=== PATIENT | female | born 1985 | race Caucasian/White ===

== ENCOUNTER 2016-03-12 18:23 | Emergency (ER) | payer OTHER ==
[2016-03-12] MEDS ORDERED: SODIUM CHLORIDE 0.9% 1,000 ML IV STA (20:41)
[2016-03-12] MEDS ORDERED: ONDANSETRON 4 MG/2 ML VIAL IVP STA (20:41)
[2016-03-12] MEDS ORDERED: HYDROmorphone 1 MG/ML 1 ML SYRINGE IVP STA (20:41)
--- NOTE | 2016-03-12 20:53 | ED ---
General Adult HPI - General Chief complaint: Abdominal Pain Stated complaint: bladder infection Time Seen by Provider: 03/12/16 20:33 Source: patient, RN notes reviewed Mode of arrival: ambulatory Limitations: no limitations - History of Present Illness Initial comments: Patient is a 31-year-old male well-known to the emergency room for chronic kidney problems and retract infections presenting to the EC today stating she's had a urinary tract infection symptoms approximately 2 weeks. She reports that she completed a antibiotic of clindamycin on Saturday by her primary care provider. She reports that she is continuing to have symptoms. She states that she has lower suprapubic pain and radiates towards her left flank. She states that she's had fever and chills especially current night. She's also reported a couple episodes of vomiting. She states that she took her at home pain medication [place] however it has not helped much with the pain. - Related Data Home Medications Medication Instructions Recorded Confirmed Albuterol Inhaler [Ventolin Hfa 1 - 2 puff INHALATION RT-Q6H PRN 03/12/16 Inhaler] Gabapentin [Neurontin] 800 mg PO TID 03/12/16 03/12/16 HYDROcodone/APAP 10-325MG [[place] 1 tab PO QID PRN 03/12/16 03/12/16 10-325] Allergies Allergy/AdvReac Type Severity Reaction Status Date / Time ketorolac tromethamine Allergy Rash/Hives Verified 03/12/16 21:15 [From Toradol] levofloxacin [From Levaquin] Allergy Rash/Hives Verified 03/12/16 21:15 morphine Allergy Rash/Hives Verified 03/12/16 21:15 Penicillins Allergy Rash/Hives Verified 03/12/16 21:15 propoxyphene napsylate Allergy Rash/Hives Verified 03/12/16 21:15 [From Darvocet-N 100] tramadol Allergy Rash/Hives Verified 03/12/16 21:15 aspirin AdvReac Nausea & Verified 03/12/16 21:15 Vomiting tomato AdvReac Unknown Verified 03/12/16 21:15 Review of Systems ROS Statement: Those systems with pertinent positive or pertinent negative responses have been documented in the HPI. ROS Other: All systems not noted in ROS Statement are negative. Past Medical History Past Medical History: CVA/TIA Additional Past Medical History / Comment(s): pyelonephritis, ADD, chronic back pain, MS, History of Any Multi-Drug Resistant Organisms: ESBL, MRSA Date of last positivie culture/infection: 01/14/15-ESBL E.coli; 10/29/05-MRSA MDRO Source:: ESBL Urine; MRSA Unknown Past Surgical History: Section, Cholecystectomy, Hysterectomy, Joint Replacement Additional Past Surgical History / Comment(s): Left knee replacement, Past Anesthesia/Blood Transfusion Reactions: No Reported Reaction Past Psychological History: Anxiety Additional Psychological History / Comment(s): xanax as needed Smoking Status: Never smoker Past Alcohol Use History: None Reported Past Drug Use History: None Reported - Past Family History Father History Unknown: Yes Additional Family Medical History / Comment(s): from aneurysm 5 years after Mother History Unknown: Yes Additional Family Medical History / Comment(s): from aneurysm and cancer at age 58 General Exam - General Exam Comments Initial Comments: Patient is a pleasant 31-year-old female. She does not appear to be in any acute distress. Limitations: no limitations General appearance: alert, in no apparent distress Head exam: Present: atraumatic, normocephalic, normal inspection Eye exam: Present: normal appearance, PERRL, EOMI. Absent: scleral icterus, conjunctival injection, periorbital swelling ENT exam: Present: normal exam, mucous membranes moist Neck exam: Present: normal inspection. Absent: tenderness, meningismus, lymphadenopathy Respiratory exam: Present: normal lung sounds bilaterally. Absent: respiratory distress, wheezes, rales, rhonchi, stridor Cardiovascular Exam: Present: regular rate, normal rhythm, normal heart sounds. Absent: systolic murmur, diastolic murmur, rubs, gallop, clicks GI/Abdominal exam: Present: soft, tenderness ( reports suprapubic tenderness.), normal bowel sounds. Absent: distended, guarding, rebound, rigid Extremities exam: Present: normal inspection, full ROM, normal capillary refill. Absent: tenderness, pedal edema, joint swelling, calf tenderness Back exam: Present: normal inspection, CVA tenderness (L) (She has mild left- sided CVA tenderness.) Neurological exam: Present: alert, oriented X3, CN II-XII intact Psychiatric exam: Present: normal affect, normal mood Skin exam: Present: warm, dry, intact, normal color. Absent: rash Course Vital Signs 03/12/16 03/12/16 18:54 22:05 Temperature 97.5 F L 98.6 F Pulse Rate 94 85 Respiratory 20 18 Rate Blood Pressure 126/70 106/59 O2 Sat by Pulse 99 97 Oximetry Medical Decision Making - Medical Decision Making Patient is a 31 year old female with 2 days of UTI symptoms and bladder pain. She has recently completed PO clindamycin from PCP. Patient labs were reviewed to be normal, except UA shows possible mild infection with moderate WBC. Patient reports that her pain is much better after pain medication and hydration. She has no fever at this time. Patient will be discharged at this time and we will hold on antibiotic selection pending urine culture results. PAtietns previous urine cultures have shown no growth and UA's appeared more sever than todays. Patient is in agreeance with the treatment plan and wants to go home and follow up with PCP in 1-2 days. She has been advised to take at home pain medicaiton and return parameters discussed. - Lab Data Result diagrams: 03/12/16 21:03 03/12/16 21:03 Lab Results 03/12/16 03/12/16 03/12/16 Range/Units 21:03 21:03 21:03 WBC 7.8 (3.8-10.6) k/uL RBC 4.19 (3.80-5.40) m/uL Hgb 12.1 (11.4-16.0) gm/dL Hct 36.5 (34.0-46.0) % MCV 87.1 (80.0-100.0) fL MCH 29.0 (25.0-35.0) pg MCHC 33.3 (31.0-37.0) g/dL RDW 13.7 (11.5-15.5) % Plt Count 275 (150-450) k/uL Neutrophils % 75 % Lymphocytes % 18 % Monocytes % 4 % Eosinophils % 2 % Basophils % 0 % Neutrophils # 5.8 (1.3-7.7) k/uL Lymphocytes # 1.4 (1.0-4.8) k/uL Monocytes # 0.4 (0-1.0) k/uL Eosinophils # 0.1 (0-0.7) k/uL Basophils # 0.0 (0-0.2) k/uL Sodium 142 (137-145) mmol/L Potassium 4.7 (3.5-5.1) mmol/L Chloride 103 (98-107) mmol/L Carbon Dioxide 25 (22-30) mmol/L Anion Gap 14 mmol/L BUN 15 (7-17) mg/dL Creatinine 0.61 (0.52-1.04) mg/dL Est GFR (MDRD) Af Amer >60 (>60 ml/min/1.73 sqM) Est GFR (MDRD) Non-Af >60 (>60 ml/min/1.73 sqM) Glucose 101 H (74-99) mg/dL Calcium 9.6 (8.4-10.2) mg/dL Total Bilirubin 0.8 (0.2-1.3) mg/dL AST 34 (14-36) U/L ALT 34 (9-52) U/L Alkaline Phosphatase 103 (38-126) U/L Total Protein 8.7 H (6.3-8.2) g/dL Albumin 4.9 (3.5-5.0) g/dL Amylase 38 (30-110) U/L Lipase 54 (23-300) U/L Urine Color Yellow Urine Appearance Cloudy H (Clear) Urine pH 7.5 (5.0-8.0) Ur Specific [place] 1.018 (1.001-1.035) Urine Protein Trace H (Negative) Urine Glucose (UA) Negative (Negative) Urine Ketones Negative (Negative) Urine Blood Negative (Negative) Urine Nitrate Negative (Negative) Urine Bilirubin Negative (Negative) Urine Urobilinogen >12.0 (<2.0) mg/dL Ur Leukocyte Esterase Small H (Negative) Urine RBC 8 H (0-5) /hpf Urine WBC 28 H (0-5) /hpf Ur Squamous Epith Cells 5 H (0-4) /hpf Urine Bacteria Moderate H (None) /hpf Urine Mucus Occasional H (None) /hpf Disposition Clinical Impression: Abdominal pain Disposition: HOME SELF-CARE Condition: Good Instructions: Abdominal Pain (ED) Additional Instructions: Patient started to remain hydrated. Take at home pain medications. Follow-up with primary care provider in one to 2 days. We will start antibiotics based on a urine culture in 2-3 days. Patient is to return to the EC if any alarming signs or symptoms occur. Referrals: Aldair Bowen MD [Primary Care Provider] - 1-2 days Time of Disposition: 21:56
--- NOTE | 2016-03-12 21:12 | XR ---
EXAMINATION TYPE: XR KUB DATE OF EXAM: 03/12/2016 9:09 PM COMPARISON: NONE HISTORY: Pain TECHNIQUE: Single supine KUB image of the abdomen is obtained FINDINGS: Small bowel demonstrates no evidence for dilatation or air fluid levels. Gas and fecal material is seen in non-distended colon. No convincing evidence for pneumoperitoneum. No unusual calcifications. The lung bases are clear. The osseous structures are intact. IMPRESSION: 1. Overall nonobstructive bowel gas pattern.
[2016-03-12 21:15] LABS: ALT 34 U/L (9-52); AST 34 U/L (14-36); Alkaline Phosphatase 103 U/L (38-126); Amylase 38 U/L (30-110); Anion Gap 14 mmol/L; Basophils % (A) 0 %; Blood Urea Nitrogen 15 mg/dL (7-17); CH 30.4; CHCM 35.1; Calcium 9.6 mg/dL (8.4-10.2); Carbon Dioxide 25 mmol/L (22-30); Chloride 103 mmol/L (98-107); Eosinophils # (A) 0.1 k/uL (0-0.7); Eosinophils % (A) 2 %; Glucose 101 mg/dL (74-99); HCT 36.5 % (34.0-46.0); HDW 3.21; HGB 12.1 gm/dL (11.4-16.0); Luc # (Auto) 0.08; Luc % (Auto) 1; Lymphocytes # (A) 1.4 k/uL (1.0-4.8); Lymphocytes % (A) 18 %; MCHC 33.3 g/dL (31.0-37.0); MCV 87.1 fL (80.0-100.0); Mean Platelet Volume 7.1; Monocytes # (A) 0.4 k/uL (0-1.0); Monocytes % (A) 4 %; Neutrophils # (A) 5.8 k/uL (1.3-7.7); Neutrophils % (A) 75 %; Non-African American GFR(MDRD) >60 (>60 ml/min/1.73 sqM); RBC 4.19 m/uL (3.80-5.40); RDW 13.7 % (11.5-15.5); Sodium 142 mmol/L (137-145); Total Bilirubin 0.8 mg/dL (0.2-1.3); Total Protein 8.7 g/dL (6.3-8.2); WBC 7.8 k/uL (3.8-10.6); WBC (Perox) 8.07
[2016-03-12 21:16] LABS: Appearance,Urine Cloudy (Clear); Bacteria,Urine Moderate /hpf; Bilirubin,Urine Negative (Negative); Glucose,Urine (UA) Negative (Negative); Ketones,Urine Negative (Negative); Leukocyte Esterase,Urine Small (Negative); Mucus,Urine Occasional /hpf; Nitrite,Urine Negative (Negative); PH, Urine 7.5 (5.0-8.0); Particle Count 247216; Protein,Urine Trace (Negative); RBC,Urine 8 /hpf (0-5); Specific Gravity,Urine 1.018 (1.001-1.035); Squamous Epithelial Cell,Urine 5 /hpf (0-4); UA Billing (MACRO vs. MICRO) MICRO; Urobilinogen,Urine >12.0 mg/dL (<2.0); WBC,Urine 28 /hpf (0-5)
[2016-03-12 21:19] LABS: Potassium 4.7 mmol/L (3.5-5.1)
[2016-03-12 22:06] VITALS: BP 106/59; PULSE 85; RESP 18; TEMP 98.6
== END 2016-03-12 22:06 | disposition home or self-care (01) ==
LOC: EC 18:23
DX: R10.30 Lower abdominal pain, unspecified (principal); R11.10 Vomiting, unspecified; R50.9 Fever, unspecified; Z87.440 Personal history of urinary (tract) infections; G35 Multiple sclerosis; Z79.899 Other long term (current) drug therapy; Z88.0 Allergy status to penicillin; Z88.1 Allergy status to other antibiotic agents; Z88.5 Allergy status to narcotic agent; Z86.14 Personal history of Methicillin resistant Staphylococcus aureus infection
CPT/HCPCS: 99284; 96374; 96375; 96361; 36415; 80053; 82150; 83690; 85025; 81001; 87086; 87077; 87186; 74000; J2405; J1170

== ENCOUNTER 2016-03-31 11:58 | Emergency (ER) | payer OTHER ==
[2016-03-31 12:14] VITALS: BP 129/68; PULSE 76; RESP 16; TEMP 98.4
--- NOTE | 2016-03-31 12:40 | ED ---
General Adult HPI - General Chief complaint: Urogenital Stated complaint: uti Time Seen by Provider: 03/31/16 12:21 Source: patient, RN notes reviewed Mode of arrival: ambulatory Limitations: no limitations - History of Present Illness Initial comments: 31-year-old female presents emergency Department with chief complaint of dysuria. Patient states that his been going on for over a week. Patient was given Bactrim at her last year visit. Patient states that seems are helping but never completely went away. She saw urgent care who gave her Keflex. Patient states that she still has some dysuria denies vaginal bleeding vaginal discharge. Patient had a prior hysterectomy. Patient states that she had no fevers no chills. Patient denies any current flank pain with states that she's had a history of pyelonephritis. Denies nausea vomiting. - Related Data Home Medications Medication Instructions Recorded Confirmed Albuterol Inhaler [Ventolin Hfa 1 - 2 puff INHALATION RT-Q6H PRN 03/12/16 Inhaler] HYDROcodone/APAP 10-325MG [[place] 1 tab PO QID PRN 03/12/16 03/31/16 10-325] Cephalexin [Keflex] 500 mg PO Q12HR 03/31/16 03/31/16 Pregabalin [Lyrica] 75 mg PO BID 03/31/16 03/31/16 Previous Rx's Medication Instructions Recorded Sulfamethox-Tmp 800-160Mg [Bactrim 1 each PO Q12HR #20 tab 03/31/16 Ds] Allergies Allergy/AdvReac Type Severity Reaction Status Date / Time ketorolac tromethamine Allergy Rash/Hives Verified 03/31/16 13:03 [From Toradol] levofloxacin [From Levaquin] Allergy Rash/Hives Verified 03/31/16 13:03 morphine Allergy Rash/Hives Verified 03/31/16 13:03 Penicillins Allergy Rash/Hives Verified 03/31/16 13:03 propoxyphene napsylate Allergy Rash/Hives Verified 03/31/16 13:03 [From Darvocet-N 100] tramadol Allergy Rash/Hives Verified 03/31/16 13:03 aspirin AdvReac Nausea & Verified 03/31/16 13:03 Vomiting tomato AdvReac Unknown Verified 03/31/16 13:03 Review of Systems ROS Statement: Those systems with pertinent positive or pertinent negative responses have been documented in the HPI. ROS Other: All systems not noted in ROS Statement are negative. Past Medical History Past Medical History: CVA/TIA Additional Past Medical History / Comment(s): pyelonephritis, ADD, chronic back pain, MS, History of Any Multi-Drug Resistant Organisms: ESBL, MRSA Date of last positivie culture/infection: 01/14/15-ESBL E.coli; 10/29/05-MRSA MDRO Source:: ESBL Urine; MRSA Unknown Past Surgical History: Section, Cholecystectomy, Hysterectomy, Joint Replacement Additional Past Surgical History / Comment(s): Left knee replacement, Past Anesthesia/Blood Transfusion Reactions: No Reported Reaction Past Psychological History: Anxiety Additional Psychological History / Comment(s): xanax as needed Smoking Status: Never smoker Past Alcohol Use History: None Reported Past Drug Use History: None Reported - Past Family History Father History Unknown: Yes Additional Family Medical History / Comment(s): from aneurysm 5 years after Mother History Unknown: Yes Additional Family Medical History / Comment(s): from aneurysm and cancer at age 58 General Exam Limitations: no limitations General appearance: alert, in no apparent distress Head exam: Present: atraumatic, normocephalic, normal inspection Respiratory exam: Present: normal lung sounds bilaterally. Absent: respiratory distress, wheezes, rales, rhonchi, stridor Cardiovascular Exam: Present: regular rate, normal rhythm, normal heart sounds. Absent: systolic murmur, diastolic murmur, rubs, gallop, clicks GI/Abdominal exam: Present: soft, normal bowel sounds. Absent: distended, tenderness, guarding, rebound, rigid Back exam: Absent: CVA tenderness (R), CVA tenderness (L) Skin exam: Present: warm, dry, intact, normal color. Absent: rash Course Vital Signs 03/31/16 12:11 Temperature 98.4 F Pulse Rate 76 Respiratory 16 Rate Blood Pressure 129/68 O2 Sat by Pulse 97 Oximetry Medical Decision Making - Medical Decision Making 31-year-old female presented emergency department for UTI symptoms. Patient does have urinary tract infection. Urine culture performed. Patient be discharged on Bactrim. - Lab Data Lab Results 03/31/16 Range/Units 12:39 Urine Color Yellow Urine Appearance Cloudy H (Clear) Urine pH 6.0 (5.0-8.0) Ur Specific [place] 1.019 (1.001-1.035) Urine Protein Trace H (Negative) Urine Glucose (UA) Negative (Negative) Urine Ketones Negative (Negative) Urine Blood Negative (Negative) Urine Nitrate Positive H (Negative) Urine Bilirubin Negative (Negative) Urine Urobilinogen <2.0 (<2.0) mg/dL Ur Leukocyte Esterase Large H (Negative) Urine RBC 8 H (0-5) /hpf Urine WBC 72 H (0-5) /hpf Ur Squamous Epith Cells 7 H (0-4) /hpf Urine Bacteria Many H (None) /hpf Urine Mucus Rare H (None) /hpf Disposition Clinical Impression: UTI (urinary tract infection) Disposition: HOME SELF-CARE Condition: Stable Instructions: Urinary Tract Infection in Women (ED) Additional Instructions: Please return to the Emergency Department if symptoms worsen or any other concerns. Prescriptions: Sulfamethox-Tmp 800-160Mg [Bactrim Ds] 1 each PO Q12HR #20 tab Time of Disposition: 13:17
[2016-03-31 12:56] LABS: Appearance,Urine Cloudy (Clear); Bacteria,Urine Many /hpf; Bilirubin,Urine Negative (Negative); Glucose,Urine (UA) Negative (Negative); Ketones,Urine Negative (Negative); Leukocyte Esterase,Urine Large (Negative); Mucus,Urine Rare /hpf; Nitrite,Urine Positive (Negative); Particle Count 46910; Protein,Urine Trace (Negative); RBC,Urine 8 /hpf (0-5); Specific Gravity,Urine 1.019 (1.001-1.035); Squamous Epithelial Cell,Urine 7 /hpf (0-4); UA Billing (MACRO vs. MICRO) MICRO; Urobilinogen,Urine <2.0 mg/dL (<2.0); WBC,Urine 72 /hpf (0-5)
== END 2016-03-31 13:23 | disposition home or self-care (01) ==
LOC: EC 11:58
DX: N39.0 Urinary tract infection, site not specified (principal); F41.9 Anxiety disorder, unspecified; G89.29 Other chronic pain; M54.9 Dorsalgia, unspecified; Z79.899 Other long term (current) drug therapy; Z88.6 Allergy status to analgesic agent; Z88.1 Allergy status to other antibiotic agents; Z88.5 Allergy status to narcotic agent; Z88.0 Allergy status to penicillin; Z88.8 Allergy status to other drugs, medicaments and biological substances; Z91.018 Allergy to other foods; Z86.73 Personal history of transient ischemic attack (TIA), and cerebral infarction without residual deficits
CPT/HCPCS: 81001; 87077; 87086; 87186; 99283

== ENCOUNTER 2016-04-09 13:07 | Emergency (ER) | payer OTHER ==
[2016-04-09] MEDS ORDERED: SODIUM CHLORIDE 0.9% 1,000 ML IV STA (14:09)
--- NOTE | 2016-04-09 14:35 | ED ---
Abdominal Pain HPI - General Chief Complaint: Abdominal Pain Stated Complaint: abdominal pain/heart palpitations Time Seen by Provider: 04/09/16 13:59 Source: patient, RN notes reviewed Mode of arrival: ambulatory Limitations: no limitations - History of Present Illness Initial Comments: 31-year-old female presents emergency Department chief complaint of dysuria and noted to the urine. Patient states she is currently being treated for UTI. Patient states she's now developed nausea vomiting lightheadedness. Patient states she has been drinking as much due to the belly pain. Patient states she was concerned that maybe her UTI is not getting better. Patient states she hasn 't had. Patient states that she has any antibiotics as prescribed. Patient is denying any other symptoms at this time.Patient denies any recent fever, chills , shortness of breath, chest pain, back pain, numbness or tingling, dysuria or hematuria, constipation or diarrhea, headaches or visual changes, or any other current symptoms. - Related Data Home Medications Medication Instructions Recorded Confirmed Albuterol Inhaler [Ventolin Hfa 1 - 2 puff INHALATION RT-Q6H PRN 03/12/16 Inhaler] HYDROcodone/APAP 10-325MG [[place] 1 tab PO QID PRN 03/12/16 04/09/16 10-325] Cephalexin [Keflex] 500 mg PO Q12HR 03/31/16 04/09/16 Pregabalin [Lyrica] 75 mg PO BID 03/31/16 04/09/16 Ibuprofen [Motrin] 800 mg PO Q6HR PRN 04/09/16 04/09/16 Previous Rx's Medication Instructions Recorded Sulfamethox-Tmp 800-160Mg [Bactrim 1 each PO Q12HR #20 tab 03/31/16 Ds] Nitrofurantoin Macrocrystal 100 mg PO BID #14 cap 04/09/16 [Macrodantin] Allergies Allergy/AdvReac Type Severity Reaction Status Date / Time ketorolac tromethamine Allergy Rash/Hives Verified 04/09/16 14:14 [From Toradol] levofloxacin [From Levaquin] Allergy Rash/Hives Verified 04/09/16 14:14 morphine Allergy Rash/Hives Verified 04/09/16 14:14 Penicillins Allergy Rash/Hives Verified 04/09/16 14:14 propoxyphene napsylate Allergy Rash/Hives Verified 04/09/16 14:14 [From Darvocet-N 100] tramadol Allergy Rash/Hives Verified 04/09/16 14:14 aspirin AdvReac Nausea & Verified 04/09/16 14:14 Vomiting tomato AdvReac Unknown Verified 04/09/16 14:14 Review of Systems ROS Statement: Those systems with pertinent positive or pertinent negative responses have been documented in the HPI. ROS Other: All systems not noted in ROS Statement are negative. Past Medical History Past Medical History: CVA/TIA Additional Past Medical History / Comment(s): pyelonephritis, ADD, chronic back pain, MS, History of Any Multi-Drug Resistant Organisms: ESBL, MRSA Date of last positivie culture/infection: 01/14/15-ESBL E.coli; 10/29/05-MRSA MDRO Source:: ESBL Urine; MRSA Unknown Past Surgical History: Section, Cholecystectomy, Hysterectomy, Joint Replacement Additional Past Surgical History / Comment(s): Left knee replacement, Past Anesthesia/Blood Transfusion Reactions: No Reported Reaction Past Psychological History: Anxiety Additional Psychological History / Comment(s): xanax as needed Smoking Status: Never smoker Past Alcohol Use History: None Reported Past Drug Use History: None Reported - Past Family History Father History Unknown: Yes Additional Family Medical History / Comment(s): from aneurysm 5 years after Mother History Unknown: Yes Additional Family Medical History / Comment(s): from aneurysm and cancer at age 58 General Exam - General Exam Comments Initial Comments: General: The patient is awake and alert, in no distress, and does not appear acutely ill. Eye: Pupils are equal, round and reactive to light, extra-ocular movements are intact; there is normal conjunctiva bilaterally. No signs of icterus. Ears, nose, mouth and throat: There are moist mucous membranes. Neck: The neck is supple, there is no tenderness. Cardiovascular: There is a regular rate and rhythm. No murmur, rub or gallop is appreciated. Respiratory: Lungs are clear to auscultation, respirations are non-labored, breath sounds are equal. No wheezes, stridor, rales, or rhonchi. Gastrointestinal: Soft, non-distended, non-tender abdomen without masses or organomegaly noted. There is no rebound or guarding present. No CVA tenderness. Bowel sounds are unremarkable. Back: There is no tenderness to palpation in the midline. There is no obvious deformity. No rashes noted. Musculoskeletal: Normal ROM, no tenderness, There is no pedal edema. There is no calf tenderness or swelling. Sensation intact. Pulses equal bilaterally 2+. Neurological: CN II-XII intact, There are no obvious motor or sensory deficits. Coordination appears grossly intact. Speech is normal. Skin: Skin is warm and dry and no rashes or lesions are noted. Psychiatric: Cooperative, appropriate mood & affect, normal judgment. Limitations: no limitations Course Vital Signs 04/09/16 13:17 Temperature 98.3 F Pulse Rate 105 H Respiratory 20 Rate Blood Pressure 133/81 O2 Sat by Pulse 99 Oximetry Medical Decision Making - Medical Decision Making 31-year-old female presents emergency department with a chief complaint of abdominal pain and dysuria. This patient does appear to have a UTI. We will switch the patient to nitrofurantoin. We did discuss follow-up with her doctor to make sure there is resolution of this UTI we did give her follow-up with urology due to the continued UTI the patient does appear to be having on and off. The patient is in agreement plan the patient is QUESTIONS have been answered. She will be discharged. - Lab Data Result diagrams: 04/09/16 14:30 04/09/16 14:30 Lab Results 04/09/16 04/09/16 04/09/16 Range/Units 14:30 14:30 14:30 WBC 7.1 (3.8-10.6) k/uL RBC 4.43 (3.80-5.40) m/uL Hgb 13.0 (11.4-16.0) gm/dL Hct 38.7 (34.0-46.0) % MCV 87.2 (80.0-100.0) fL MCH 29.3 (25.0-35.0) pg MCHC 33.6 (31.0-37.0) g/dL RDW 13.6 (11.5-15.5) % Plt Count 273 (150-450) k/uL Neutrophils % 57 % Lymphocytes % 30 % Monocytes % 6 % Eosinophils % 4 % Basophils % 0 % Neutrophils # 4.1 (1.3-7.7) k/uL Lymphocytes # 2.1 (1.0-4.8) k/uL Monocytes # 0.4 (0-1.0) k/uL Eosinophils # 0.3 (0-0.7) k/uL Basophils # 0.0 (0-0.2) k/uL Sodium 144 (137-145) mmol/L Potassium 4.5 (3.5-5.1) mmol/L Chloride 103 (98-107) mmol/L Carbon Dioxide 28 (22-30) mmol/L Anion Gap 13 mmol/L BUN 16 (7-17) mg/dL Creatinine 0.60 (0.52-1.04) mg/dL Est GFR (MDRD) Af Amer >60 (>60 ml/min/1.73 sqM) Est GFR (MDRD) Non-Af >60 (>60 ml/min/1.73 sqM) Glucose 105 H (74-99) mg/dL Calcium 9.7 (8.4-10.2) mg/dL Total Bilirubin 0.7 (0.2-1.3) mg/dL AST 42 H (14-36) U/L ALT 42 (9-52) U/L Alkaline Phosphatase 94 (38-126) U/L Total Protein 8.5 H (6.3-8.2) g/dL Albumin 4.6 (3.5-5.0) g/dL Amylase 30 (30-110) U/L Lipase 35 (23-300) U/L Urine Color Yellow Urine Appearance Cloudy H (Clear) Urine pH 5.0 (5.0-8.0) Ur Specific [place] 1.020 (1.001-1.035) Urine Protein 1+ H (Negative) Urine Glucose (UA) Negative (Negative) Urine Ketones Negative (Negative) Urine Blood Small H (Negative) Urine Nitrate Positive H (Negative) Urine Bilirubin Negative (Negative) Urine Urobilinogen <2.0 (<2.0) mg/dL Ur Leukocyte Esterase Small H (Negative) Urine RBC 4 (0-5) /hpf Urine WBC 24 H (0-5) /hpf Ur Squamous Epith Cells 9 H (0-4) /hpf Urine Bacteria Many H (None) /hpf Urine Mucus Occasional H (None) /hpf Urine HCG, Qual (Not Detectd) 04/09/16 Range/Units 14:30 WBC (3.8-10.6) k/uL RBC (3.80-5.40) m/uL Hgb (11.4-16.0) gm/dL Hct (34.0-46.0) % MCV (80.0-100.0) fL MCH (25.0-35.0) pg MCHC (31.0-37.0) g/dL RDW (11.5-15.5) % Plt Count (150-450) k/uL Neutrophils % % Lymphocytes % % Monocytes % % Eosinophils % % Basophils % % Neutrophils # (1.3-7.7) k/uL Lymphocytes # (1.0-4.8) k/uL Monocytes # (0-1.0) k/uL Eosinophils # (0-0.7) k/uL Basophils # (0-0.2) k/uL Sodium (137-145) mmol/L Potassium (3.5-5.1) mmol/L Chloride (98-107) mmol/L Carbon Dioxide (22-30) mmol/L Anion Gap mmol/L BUN (7-17) mg/dL Creatinine (0.52-1.04) mg/dL Est GFR (MDRD) Af Amer (>60 ml/min/1.73 sqM) Est GFR (MDRD) Non-Af (>60 ml/min/1.73 sqM) Glucose (74-99) mg/dL Calcium (8.4-10.2) mg/dL Total Bilirubin (0.2-1.3) mg/dL AST (14-36) U/L ALT (9-52) U/L Alkaline Phosphatase (38-126) U/L Total Protein (6.3-8.2) g/dL Albumin (3.5-5.0) g/dL Amylase (30-110) U/L Lipase (23-300) U/L Urine Color Urine Appearance (Clear) Urine pH (5.0-8.0) Ur Specific [place] (1.001-1.035) Urine Protein (Negative) Urine Glucose (UA) (Negative) Urine Ketones (Negative) Urine Blood (Negative) Urine Nitrate (Negative) Urine Bilirubin (Negative) Urine Urobilinogen (<2.0) mg/dL Ur Leukocyte Esterase (Negative) Urine RBC (0-5) /hpf Urine WBC (0-5) /hpf Ur Squamous Epith Cells (0-4) /hpf Urine Bacteria (None) /hpf Urine Mucus (None) /hpf Urine HCG, Qual Not Detected (Not Detectd) - Radiology Data Radiology results: report reviewed, image reviewed Disposition Clinical Impression: UTI (urinary tract infection) Disposition: HOME SELF-CARE Condition: Stable Instructions: Urinary Tract Infection in Women (ED) Additional Instructions: Please use medication as discussed. Please follow up with family doctor if symptoms have not improved over the next two days. Please return to the emergency room if your symptoms increase or worsen or for any other concerns. Prescriptions: Nitrofurantoin Macrocrystal [Macrodantin] 100 mg PO BID #14 cap Referrals: Aldair Bowen MD [Primary Care Provider] - 1-2 days Time of Disposition: 16:27
[2016-04-09 14:38] LABS: Basophils % (A) 0 %; CH 30.3; CHCM 34.9; Eosinophils # (A) 0.3 k/uL (0-0.7); Eosinophils % (A) 4 %; HCT 38.7 % (34.0-46.0); HDW 3.32; Luc # (Auto) 0.19; Luc % (Auto) 3; Lymphocytes # (A) 2.1 k/uL (1.0-4.8); Lymphocytes % (A) 30 %; MCH 29.3 pg (25.0-35.0); MCHC 33.6 g/dL (31.0-37.0); MCV 87.2 fL (80.0-100.0); Mean Platelet Volume 7.1; Monocytes # (A) 0.4 k/uL (0-1.0); Monocytes % (A) 6 %; Neutrophils # (A) 4.1 k/uL (1.3-7.7); Neutrophils % (A) 57 %; RBC 4.43 m/uL (3.80-5.40); RDW 13.6 % (11.5-15.5); WBC 7.1 k/uL (3.8-10.6); WBC (Perox) 7.31
[2016-04-09 14:50] LABS: ALT 42 U/L (9-52); AST 42 U/L (14-36); Alkaline Phosphatase 94 U/L (38-126); Amylase 30 U/L (30-110); Anion Gap 13 mmol/L; Blood Urea Nitrogen 16 mg/dL (7-17); Calcium 9.7 mg/dL (8.4-10.2); Carbon Dioxide 28 mmol/L (22-30); Chloride 103 mmol/L (98-107); Glucose 105 mg/dL (74-99); Non-African American GFR(MDRD) >60 (>60 ml/min/1.73 sqM); Potassium 4.5 mmol/L (3.5-5.1); Sodium 144 mmol/L (137-145); Total Bilirubin 0.7 mg/dL (0.2-1.3); Total Protein 8.5 g/dL (6.3-8.2)
[2016-04-09 14:51] LABS: Appearance,Urine Cloudy (Clear); Bacteria,Urine Many /hpf; Bilirubin,Urine Negative (Negative); Glucose,Urine (UA) Negative (Negative); Ketones,Urine Negative (Negative); Leukocyte Esterase,Urine Small (Negative); Mucus,Urine Occasional /hpf; Nitrite,Urine Positive (Negative); Particle Count 42852; Protein,Urine 1+ (Negative); RBC,Urine 4 /hpf (0-5); Squamous Epithelial Cell,Urine 9 /hpf (0-4); Urobilinogen,Urine <2.0 mg/dL (<2.0); WBC,Urine 24 /hpf (0-5)
[2016-04-09] MEDS ORDERED: ACETAMINOPHEN IV (For NPO) 1,000 MG in EMPTY BAG 1 BAG IVPB STA (15:41)
--- NOTE | 2016-04-09 16:03 | XR ---
EXAMINATION TYPE: XR abdomen 2V DATE OF EXAM: 04/09/2016 3:08 PM CLINICAL HISTORY: Abdominal pain with vomiting. TECHNIQUE: Supine and upright views of the abdomen are obtained. COMPARISON: Abdominal x-ray March 12, 2016. FINDINGS: Scattered gas is seen in non-distended small bowel loops. Gas and fecal material is seen in non-distended colon. Cholecystectomy clips are identified. Additional surgical clips right pelvis are redemonstrated. No pneumoperitoneum is seen. No suspicious calcification is identified. Lung base s are clear. IMPRESSION: Overall nonobstructive bowel gas pattern. No significant change from prior.
[2016-04-09 16:31] VITALS: BP 118/54; PULSE 65; RESP 16; TEMP 98.8
[2016-04-09 17:50] LABS: UA Billing (MACRO vs. MICRO) MICRO
== END 2016-04-09 16:39 | disposition home or self-care (01) ==
LOC: EC 13:07
DX: N39.0 Urinary tract infection, site not specified (principal); G35 Multiple sclerosis; F41.9 Anxiety disorder, unspecified; Z79.899 Other long term (current) drug therapy; Z88.0 Allergy status to penicillin; Z88.6 Allergy status to analgesic agent; Z88.5 Allergy status to narcotic agent; Z86.73 Personal history of transient ischemic attack (TIA), and cerebral infarction without residual deficits
CPT/HCPCS: 36415; 80053; 82150; 83690; 85025; 81001; 81025; 87086; 74020; 99284; 96365; 96367; 96361; J0696; J0131; 87077; 87186

== ENCOUNTER 2016-04-19 11:42 | Emergency (ER) | payer OTHER ==
[2016-04-19] MEDS ORDERED: ONDANSETRON 4 MG/2 ML VIAL IVP STA (12:36)
[2016-04-19] MEDS ORDERED: SODIUM CHLORIDE 0.9% 500 ML IV STA (12:36)
[2016-04-19] MEDS ORDERED: MORPHINE SULFATE 2 MG/ML SYRINGE IVP STA (12:36)
[2016-04-19 13:11] LABS: Basophils % (A) 0 %; CH 30.2; CHCM 34.8; Eosinophils # (A) 0.2 k/uL (0-0.7); Eosinophils % (A) 3 %; HCT 37.8 % (34.0-46.0); HDW 3.31; HGB 12.7 gm/dL (11.4-16.0); Luc # (Auto) 0.24; Luc % (Auto) 3; Lymphocytes # (A) 2.2 k/uL (1.0-4.8); Lymphocytes % (A) 30 %; MCH 29.4 pg (25.0-35.0); MCHC 33.7 g/dL (31.0-37.0); MCV 87.3 fL (80.0-100.0); Mean Platelet Volume 6.7; Monocytes # (A) 0.4 k/uL (0-1.0); Monocytes % (A) 5 %; Neutrophils # (A) 4.2 k/uL (1.3-7.7); Neutrophils % (A) 58 %; RBC 4.33 m/uL (3.80-5.40); RDW 13.5 % (11.5-15.5); WBC 7.3 k/uL (3.8-10.6); WBC (Perox) 7.46
[2016-04-19 13:13] LABS: Appearance,Urine Cloudy (Clear); Bacteria,Urine Moderate /hpf; Bilirubin,Urine Negative (Negative); Glucose,Urine (UA) Negative (Negative); Ketones,Urine Negative (Negative); Leukocyte Esterase,Urine Negative (Negative); Mucus,Urine Rare /hpf; Nitrite,Urine Negative (Negative); Particle Count 5329; Protein,Urine Negative (Negative); RBC,Urine <1 /hpf (0-5); Squamous Epithelial Cell,Urine 3 /hpf (0-4); UA Billing (MACRO vs. MICRO) MICRO; WBC,Urine 2 /hpf (0-5)
[2016-04-19 13:23] LABS: Prothrombin Time 9.8 sec (9.0-12.0)
[2016-04-19 13:41] LABS: ALT 47 U/L (9-52); AST 40 U/L (14-36); Alkaline Phosphatase 90 U/L (38-126); Amylase <30 U/L (30-110); Anion Gap 12 mmol/L; Blood Urea Nitrogen 7 mg/dL (7-17); Carbon Dioxide 22 mmol/L (22-30); Chloride 106 mmol/L (98-107); Glucose 99 mg/dL (74-99); Non-African American GFR(MDRD) >60 (>60 ml/min/1.73 sqM); Sodium 140 mmol/L (137-145); Total Bilirubin 0.8 mg/dL (0.2-1.3); Total Protein 8.1 g/dL (6.3-8.2)
[2016-04-19 13:42] LABS: Partial Thromboplastin Time 95.6 sec (22.0-30.0)
--- NOTE | 2016-04-19 14:01 | CT ---
EXAMINATION TYPE: CT abdomen pelvis w con DATE OF EXAM: 04/19/2016 1:52 PM REFERENCE: Previous study dated 06/06/2015 HISTORY: abdominal pain HISTORY: Abdomen pain REFERENCE: NONE CT DLP: 2440.2 mGy Automated exposure control for dose reduction was used. TECHNIQUE: Helical acquisition through the abdomen and pelvis was obtained following the oral ingesti on of without Oral Contrast and following intravenous administration of 100 mL of Omnipaque 300. The data was reformatted in axial, coronal and sagittal projections. FINDINGS: Visualized portions of the lungs are clear. There is no pleural or pericardial fluid. The heart is not enlarged. Within the abdomen, the gallbladder is been removed. The liver and spleen are normal. Both adrenal glands are normal. There is a stable, 2.2 cm cyst in the mid polar region of the left kidney. The right kidney is normal . The pancreas is normal. There is no significant retroperitoneal, iliac or inguinal adenopathy. The bladder is unremarkable. The uterus and ovaries are not visualized. There is no significant diverticular change and there is no radiographic evidence of diverticulitis. The appendix is normal. Small bowel loops are unremarkable. There is no free fluid and no free air identified. No osseous lesion is seen. IMPRESSION: 1. SIMPLE APPEARING LEFT RENAL CYST. 2. NO FINDING TO EXPLAIN THE PATIENT'S CLINICAL SYNDROME.
[2016-04-19 14:17] LABS: Potassium 5.2 mmol/L (3.5-5.1)
--- NOTE | 2016-04-19 15:38 | ED ---
Abdominal Pain HPI - General Chief Complaint: Abdominal Pain Stated Complaint: abd pain Time Seen by Provider: 04/19/16 12:20 Source: patient Mode of arrival: ambulatory - History of Present Illness Initial Comments: Patient complains of abdominal pain. She states the pain was initially epigastric. She states the pain is moving to the right lower quadrant. She has no pelvic pain. She has no vaginal bleeding or discharge. She has no chest pain. She has no shortness of breath. She has no lightheadedness or dizziness. She has no neck pain or stiffness. She had some nausea. She is not actively vomiting. She has no blood in the stool. She has no black or tarry stool. - Related Data Home Medications Medication Instructions Recorded Confirmed Albuterol Inhaler [Ventolin Hfa 1 puff INHALATION RT-Q6H PRN 03/12/16 04/19/16 Inhaler] HYDROcodone/APAP 10-325MG [[place] 1 tab PO QID PRN 03/12/16 04/19/16 10-325] Pregabalin [Lyrica] 75 mg PO TID 03/31/16 04/19/16 Allergies Allergy/AdvReac Type Severity Reaction Status Date / Time ketorolac tromethamine Allergy Rash/Hives Verified 04/19/16 12:16 [From Toradol] levofloxacin [From Levaquin] Allergy Rash/Hives Verified 04/19/16 12:16 morphine Allergy Rash/Hives Verified 04/19/16 12:16 Penicillins Allergy Rash/Hives Verified 04/19/16 12:16 propoxyphene napsylate Allergy Rash/Hives Verified 04/19/16 12:16 [From Darvocet-N 100] tramadol Allergy Rash/Hives Verified 04/19/16 12:16 aspirin AdvReac Nausea & Verified 04/19/16 12:16 Vomiting tomato AdvReac Unknown Verified 04/19/16 12:16 Review of Systems ROS Statement: Those systems with pertinent positive or pertinent negative responses have been documented in the HPI. ROS Other: All systems not noted in ROS Statement are negative. 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, MRSA Date of last positivie culture/infection: 01/14/15-ESBL E.coli; 10/29/05-MRSA MDRO Source:: ESBL Urine; MRSA Unknown Past Surgical History: Section, Cholecystectomy, Hysterectomy, Joint Replacement Additional Past Surgical History / Comment(s): Left knee replacement, Past Anesthesia/Blood Transfusion Reactions: No Reported Reaction Past Psychological History: ADD/ADHD, Anxiety Additional Psychological History / Comment(s): xanax as needed Smoking Status: Never smoker Past Alcohol Use History: None Reported Past Drug Use History: None Reported - Past Family History Father History Unknown: Yes Additional Family Medical History / Comment(s): from aneurysm 5 years after Mother History Unknown: Yes Additional Family Medical History / Comment(s): from aneurysm and cancer at age 58 General Exam General appearance: alert, in no apparent distress Head exam: Present: atraumatic, normocephalic, normal inspection Eye exam: Present: normal appearance, PERRL, EOMI. Absent: scleral icterus, conjunctival injection, periorbital swelling ENT exam: Present: normal exam, mucous membranes moist Neck exam: Present: normal inspection. Absent: tenderness, meningismus, lymphadenopathy Respiratory exam: Present: normal lung sounds bilaterally. Absent: respiratory distress, wheezes, rales, rhonchi, stridor Cardiovascular Exam: Present: regular rate, normal rhythm, normal heart sounds. Absent: systolic murmur, diastolic murmur, rubs, gallop, clicks GI/Abdominal exam: Present: soft, tenderness, normal bowel sounds. Absent: distended, guarding, rebound, rigid Extremities exam: Present: normal inspection, full ROM, normal capillary refill. Absent: tenderness, pedal edema, joint swelling, calf tenderness Back exam: Present: normal inspection Neurological exam: Present: alert, oriented X3, CN II-XII intact Psychiatric exam: Present: normal affect, normal mood Skin exam: Present: warm, dry, intact, normal color. Absent: rash Course Vital Signs 04/19/16 04/19/16 04/19/16 12:14 12:28 14:36 Temperature 97.3 F L 96.9 F L 97.5 F L Pulse Rate 85 74 95 Respiratory 18 20 95 H Rate Blood Pressure 131/67 157/88 152/95 O2 Sat by Pulse 100 100 100 Oximetry Medical Decision Making - Medical Decision Making Patient complains of abdominal pain. She had mild tenderness. She had no pelvic complaints. CT of the abdomen and pelvis is unremarkable. Patient is feeling better on reevaluation is stable for discharge. - Lab Data Result diagrams: 04/19/16 12:45 04/19/16 12:45 Lab Results 04/19/16 04/19/16 04/19/16 Range/Units 12:45 12:45 12:45 WBC 7.3 (3.8-10.6) k/uL RBC 4.33 (3.80-5.40) m/uL Hgb 12.7 (11.4-16.0) gm/dL Hct 37.8 (34.0-46.0) % MCV 87.3 (80.0-100.0) fL MCH 29.4 (25.0-35.0) pg MCHC 33.7 (31.0-37.0) g/dL RDW 13.5 (11.5-15.5) % Plt Count 287 (150-450) k/uL Neutrophils % 58 % Lymphocytes % 30 % Monocytes % 5 % Eosinophils % 3 % Basophils % 0 % Neutrophils # 4.2 (1.3-7.7) k/uL Lymphocytes # 2.2 (1.0-4.8) k/uL Monocytes # 0.4 (0-1.0) k/uL Eosinophils # 0.2 (0-0.7) k/uL Basophils # 0.0 (0-0.2) k/uL PT (9.0-12.0) sec INR (<1.1) APTT (22.0-30.0) sec Sodium 140 (137-145) mmol/L Potassium 5.2 H (3.5-5.1) mmol/L Chloride 106 (98-107) mmol/L Carbon Dioxide 22 (22-30) mmol/L Anion Gap 12 mmol/L BUN 7 (7-17) mg/dL Creatinine 0.56 (0.52-1.04) mg/dL Est GFR (MDRD) Af Amer >60 (>60 ml/min/1.73 sqM) Est GFR (MDRD) Non-Af >60 (>60 ml/min/1.73 sqM) Glucose 99 (74-99) mg/dL Calcium 9.0 (8.4-10.2) mg/dL Total Bilirubin 0.8 (0.2-1.3) mg/dL AST 40 H (14-36) U/L ALT 47 (9-52) U/L Alkaline Phosphatase 90 (38-126) U/L Total Protein 8.1 (6.3-8.2) g/dL Albumin 4.5 (3.5-5.0) g/dL Amylase <30 L (30-110) U/L Lipase 27 (23-300) U/L Urine Color Urine Appearance (Clear) Urine pH (5.0-8.0) Ur Specific [place] (1.001-1.035) Urine Protein (Negative) Urine Glucose (UA) (Negative) Urine Ketones (Negative) Urine Blood (Negative) Urine Nitrate (Negative) Urine Bilirubin (Negative) Urine Urobilinogen (<2.0) mg/dL Ur Leukocyte Esterase (Negative) Urine RBC (0-5) /hpf Urine WBC (0-5) /hpf Ur Squamous Epith Cells (0-4) /hpf Urine Bacteria (None) /hpf Urine Mucus (None) /hpf Urine HCG, Qual Not Detected (Not Detectd) Blood Type Blood Type Recheck Antibody Screen Spec Expiration Date 04/19/16 04/19/16 04/19/16 Range/Units 12:45 12:45 13:51 WBC (3.8-10.6) k/uL RBC (3.80-5.40) m/uL Hgb (11.4-16.0) gm/dL Hct (34.0-46.0) % MCV (80.0-100.0) fL MCH (25.0-35.0) pg MCHC (31.0-37.0) g/dL RDW (11.5-15.5) % Plt Count (150-450) k/uL Neutrophils % % Lymphocytes % % Monocytes % % Eosinophils % % Basophils % % Neutrophils # (1.3-7.7) k/uL Lymphocytes # (1.0-4.8) k/uL Monocytes # (0-1.0) k/uL Eosinophils # (0-0.7) k/uL Basophils # (0-0.2) k/uL PT 9.8 (9.0-12.0) sec INR 1.0 (<1.1) APTT 95.6 H (22.0-30.0) sec Sodium (137-145) mmol/L Potassium (3.5-5.1) mmol/L Chloride (98-107) mmol/L Carbon Dioxide (22-30) mmol/L Anion Gap mmol/L BUN (7-17) mg/dL Creatinine (0.52-1.04) mg/dL Est GFR (MDRD) Af Amer (>60 ml/min/1.73 sqM) Est GFR (MDRD) Non-Af (>60 ml/min/1.73 sqM) Glucose (74-99) mg/dL Calcium (8.4-10.2) mg/dL Total Bilirubin (0.2-1.3) mg/dL AST (14-36) U/L ALT (9-52) U/L Alkaline Phosphatase (38-126) U/L Total Protein (6.3-8.2) g/dL Albumin (3.5-5.0) g/dL Amylase (30-110) U/L Lipase (23-300) U/L Urine Color Light Yellow Urine Appearance Cloudy H (Clear) Urine pH 6.0 (5.0-8.0) Ur Specific [place] 1.010 (1.001-1.035) Urine Protein Negative (Negative) Urine Glucose (UA) Negative (Negative) Urine Ketones Negative (Negative) Urine Blood Negative (Negative) Urine Nitrate Negative (Negative) Urine Bilirubin Negative (Negative) Urine Urobilinogen 2.0 (<2.0) mg/dL Ur Leukocyte Esterase Negative (Negative) Urine RBC <1 (0-5) /hpf Urine WBC 2 (0-5) /hpf Ur Squamous Epith Cells 3 (0-4) /hpf Urine Bacteria Moderate H (None) /hpf Urine Mucus Rare H (None) /hpf Urine HCG, Qual (Not Detectd) Blood Type O Positive Blood Type Recheck No Antibody Screen NEGATIVE Spec Expiration Date 04/22/2016 - 235004/19/16 Range/Units 14:00 WBC (3.8-10.6) k/uL RBC (3.80-5.40) m/uL Hgb (11.4-16.0) gm/dL Hct (34.0-46.0) % MCV (80.0-100.0) fL MCH (25.0-35.0) pg MCHC (31.0-37.0) g/dL RDW (11.5-15.5) % Plt Count (150-450) k/uL Neutrophils % % Lymphocytes % % Monocytes % % Eosinophils % % Basophils % % Neutrophils # (1.3-7.7) k/uL Lymphocytes # (1.0-4.8) k/uL Monocytes # (0-1.0) k/uL Eosinophils # (0-0.7) k/uL Basophils # (0-0.2) k/uL PT (9.0-12.0) sec INR (<1.1) APTT >200.0 H* (22.0-30.0) sec Sodium (137-145) mmol/L Potassium (3.5-5.1) mmol/L Chloride (98-107) mmol/L Carbon Dioxide (22-30) mmol/L Anion Gap mmol/L BUN (7-17) mg/dL Creatinine (0.52-1.04) mg/dL Est GFR (MDRD) Af Amer (>60 ml/min/1.73 sqM) Est GFR (MDRD) Non-Af (>60 ml/min/1.73 sqM) Glucose (74-99) mg/dL Calcium (8.4-10.2) mg/dL Total Bilirubin (0.2-1.3) mg/dL AST (14-36) U/L ALT (9-52) U/L Alkaline Phosphatase (38-126) U/L Total Protein (6.3-8.2) g/dL Albumin (3.5-5.0) g/dL Amylase (30-110) U/L Lipase (23-300) U/L Urine Color Urine Appearance (Clear) Urine pH (5.0-8.0) Ur Specific [place] (1.001-1.035) Urine Protein (Negative) Urine Glucose (UA) (Negative) Urine Ketones (Negative) Urine Blood (Negative) Urine Nitrate (Negative) Urine Bilirubin (Negative) Urine Urobilinogen (<2.0) mg/dL Ur Leukocyte Esterase (Negative) Urine RBC (0-5) /hpf Urine WBC (0-5) /hpf Ur Squamous Epith Cells (0-4) /hpf Urine Bacteria (None) /hpf Urine Mucus (None) /hpf Urine HCG, Qual (Not Detectd) Blood Type Blood Type Recheck Antibody Screen Spec Expiration Date Disposition Clinical Impression: Abdominal pain Disposition: HOME SELF-CARE Condition: Good Instructions: Abdominal Pain (ED)
[2016-04-19 16:01] VITALS: BP 137/67; PULSE 88; RESP 20; TEMP 97.1
== END 2016-04-19 16:01 | disposition home or self-care (01) ==
LOC: EC 11:42
DX: N28.1 Cyst of kidney, acquired (principal); R10.31 Right lower quadrant pain; Z88.5 Allergy status to narcotic agent; Z88.0 Allergy status to penicillin; Z88.6 Allergy status to analgesic agent; Z88.8 Allergy status to other drugs, medicaments and biological substances; Z91.018 Allergy to other foods; Z86.14 Personal history of Methicillin resistant Staphylococcus aureus infection; Z87.440 Personal history of urinary (tract) infections
CPT/HCPCS: 99284; 96361; 96375; 96374; 36415; 86900; 86901; 80053; 82150; 83690; 85025; 85610; 85730; 86850; 81001; 81025; 74177; J2405; J2270; Q9967

== ENCOUNTER 2016-04-20 19:04 | Emergency (ER) | payer OTHER ==
[2016-04-20] MEDS ORDERED: ONDANSETRON ODT 4 MG TAB PO STA (19:46)
[2016-04-20] MEDS ORDERED: HYDROmorphone 2 MG/ML 1 ML SYRINGE IM STA ×2 (19:46→22:18)
--- NOTE | 2016-04-20 19:51 | ED ---
General Adult HPI - General Chief complaint: Abdominal Pain Stated complaint: abdominal pain/vomiting Time Seen by Provider: 04/20/16 19:21 Source: patient, RN notes reviewed, old records reviewed Mode of arrival: ambulatory Limitations: no limitations - History of Present Illness Initial comments: This is a 31-year-old female ER for evaluation of abdominal pain, patient coming in with severe right upper quadrant bowel pain. Patient has multiple history of abdominal surgeries [place] history etc. Patient has no recent fevers , this is her third ER visit in the past 4 days for similar symptoms. Patient has no diarrhea, no nausea of a pain is worse when she eats. Again no fevers or travel history no sick contacts, patient is taking medication at home with no help - Related Data Home Medications Medication Instructions Recorded Confirmed Albuterol Inhaler [Ventolin Hfa 1 puff INHALATION RT-Q6H PRN 03/12/16 04/20/16 Inhaler] HYDROcodone/APAP 10-325MG [[place] 1 tab PO QID 03/12/16 04/20/16 10-325] Pregabalin [Lyrica] 75 mg PO BID 03/31/16 04/20/16 Allergies Allergy/AdvReac Type Severity Reaction Status Date / Time ketorolac tromethamine Allergy Rash/Hives Verified 04/20/16 19:12 [From Toradol] levofloxacin [From Levaquin] Allergy Rash/Hives Verified 04/20/16 19:12 morphine Allergy Rash/Hives Verified 04/20/16 19:12 Penicillins Allergy Rash/Hives Verified 04/20/16 19:12 propoxyphene napsylate Allergy Rash/Hives Verified 04/20/16 19:12 [From Darvocet-N 100] tramadol Allergy Rash/Hives Verified 04/20/16 19:12 aspirin AdvReac Nausea & Verified 04/20/16 19:12 Vomiting tomato AdvReac Unknown Verified 04/20/16 19:12 Review of Systems ROS Statement: Those systems with pertinent positive or pertinent negative responses have been documented in the HPI. ROS Other: All systems not noted in ROS Statement are negative. 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, MRSA Date of last positivie culture/infection: 01/14/15-ESBL E.coli; 10/29/05-MRSA MDRO Source:: ESBL Urine; MRSA Unknown Past Surgical History: Section, Cholecystectomy, Hysterectomy, Joint Replacement Additional Past Surgical History / Comment(s): Left knee replacement, Past Anesthesia/Blood Transfusion Reactions: No Reported Reaction Past Psychological History: ADD/ADHD, Anxiety Additional Psychological History / Comment(s): xanax as needed Smoking Status: Never smoker Past Alcohol Use History: None Reported Past Drug Use History: None Reported - Past Family History Father History Unknown: Yes Additional Family Medical History / Comment(s): from aneurysm 5 years after Mother History Unknown: Yes Additional Family Medical History / Comment(s): from aneurysm and cancer at age 58 General Exam Limitations: no limitations General appearance: alert, in no apparent distress, obese Head exam: Present: atraumatic, normocephalic, normal inspection Eye exam: Present: normal appearance, PERRL, EOMI. Absent: scleral icterus, conjunctival injection, periorbital swelling ENT exam: Present: normal exam, mucous membranes moist Neck exam: Present: normal inspection. Absent: tenderness, meningismus, lymphadenopathy Respiratory exam: Present: normal lung sounds bilaterally. Absent: respiratory distress, wheezes, rales, rhonchi, stridor Cardiovascular Exam: Present: regular rate, normal rhythm, normal heart sounds. Absent: systolic murmur, diastolic murmur, rubs, gallop, clicks GI/Abdominal exam: Present: soft, tenderness (Right upper quadrant), normal bowel sounds. Absent: distended, guarding, rebound, rigid Extremities exam: Present: normal inspection, full ROM, normal capillary refill. Absent: tenderness, pedal edema, joint swelling, calf tenderness Back exam: Present: normal inspection Neurological exam: Present: alert, oriented X3, CN II-XII intact Psychiatric exam: Present: normal affect, normal mood Skin exam: Present: warm, dry, intact, normal color. Absent: rash Course Vital Signs 04/20/16 19:11 Temperature 97.9 F Pulse Rate 70 Respiratory 18 Rate Blood Pressure 190/97 O2 Sat by Pulse 100 Oximetry - Reevaluation(s) Reevaluation #1: 04/20/16 21:52 Patient's 2 prior ER visits this week or evaluated, she had lab work 2 which is negative, urine which was negative and CAT scan negative Medical Decision Making - Medical Decision Making 31 female the ER with acute on chronic abdominal pain. At this time no interventionally made, patient to follow-up with family physician. Ultrasound negative to direct - Radiology Data Radiology results: report reviewed (Ultrasounds negative for acute disease), image reviewed Disposition Clinical Impression: Abdominal pain Disposition: HOME SELF-CARE Condition: Good Instructions: Abdominal Pain (ED) Referrals: Aldair Bowen MD [Primary Care Provider] - 1-2 days
--- NOTE | 2016-04-20 21:40 | US ---
EXAMINATION TYPE: US gallbladder DATE OF EXAM: 04/20/2016 9:30 PM COMPARISON: CT in pacs CLINICAL HISTORY: Hina,RUQpain. RUQ pain and N/V/D x 1 week, history of cholecystectomy, obese patie nt EXAM MEASUREMENTS: Liver Length: 15.8 cm Gallbladder Wall: Surgically absent CBD: 0.4 cm Right Kidney: 10.6 x 5.1 x 5.4 cm TECHNOLOGIST IMPRESSION: Technically difficult and limited study due to patient's body habitus Pancreas: visualized portions wnl, limited by overlying midline bowel gas Liver: visualized portions wnl, limited by rib shadowing and overlying bowel gas Gallbladder: Surgically absent Evidence for sonographic Manuel's sign: yes CBD: visualized portions wnl, limited by overlying bowel gas Right Kidney: visualized portions wnl, limited by overlying bowel gas IMPRESSION: Cholecystectomy. No dilated ducts. No focal liver defect.
[2016-04-20 22:17] VITALS: BP 131/84; PULSE 79; RESP 16; TEMP 98.3
== END 2016-04-20 22:25 | disposition home or self-care (01) ==
LOC: EC 19:04
DX: R10.11 Right upper quadrant pain (principal); G35 Multiple sclerosis; Z79.899 Other long term (current) drug therapy; Z86.14 Personal history of Methicillin resistant Staphylococcus aureus infection; Z86.73 Personal history of transient ischemic attack (TIA), and cerebral infarction without residual deficits; Z79.891 Long term (current) use of opiate analgesic; Z91.02 Food additives allergy status; Z88.0 Allergy status to penicillin; Z88.5 Allergy status to narcotic agent; Z88.6 Allergy status to analgesic agent; Z88.1 Allergy status to other antibiotic agents
CPT/HCPCS: 76705; 99284; 96372; J1170

== ENCOUNTER 2016-05-24 10:40 | Day surgery (SDC) | payer OTHER ==
[2016-05-07 15:19] VITALS: BMI 32.9
[~2016-05-24 10:40] MED LIST: LIDOCAINE 1% 20 ML VIAL (10MG/ML) FOR IV START INTRADERMA PRN
[2016-05-24 11:25] VITALS: RESP 16; TEMP 97.1
[2016-05-24] MEDS: LACTATED RINGERS 1,000 ML IV SCH ×2 (11:42→11:46)
[2016-05-24] MEDS ORDERED: LIDOCAINE 1% INJ 10MG/ML (20 ML MDV) ONE (11:49)
[2016-05-24] MEDS ORDERED: PROPOFOL 10 MG/ML 20 ML VIAL IV ONE (11:49)
--- NOTE | 2016-05-24 11:54 | P.GSHP ---
History of Present Illness H&P Date: 05/24/16 Chief Complaint: Epigastric pain and nausea and vomiting 31 years old female presents with epigastric pain and right upper quadrant pain for last 2 months. She has nausea and bilious vomiting. Prior cholecystectomy several years ago. Chronic diarrhea. Excisional: Motrin 800 mg 2-3 times a day for chronic knee pain - Review of Systems Comment: All negative except stated in history of present illness Past Medical History Past Medical History: CVA/TIA Additional Past Medical History / Comment(s): pyelonephritis, ADD, chronic back pain, MS, factor 12 deficiency, abdominal pain, vomiting History of Any Multi-Drug Resistant Organisms: ESBL, MRSA Date of last positivie culture/infection: 01/14/15-ESBL E.coli; 10/29/05-MRSA MDRO Source:: ESBL Urine; MRSA Unknown Past Surgical History: Section, Cholecystectomy, Hysterectomy, Joint Replacement Additional Past Surgical History / Comment(s): Left knee replacement, Past Anesthesia/Blood Transfusion Reactions: No Reported Reaction Past Psychological History: ADD/ADHD, Anxiety Additional Psychological History / Comment(s): xanax as needed Smoking Status: Never smoker Past Alcohol Use History: None Reported Past Drug Use History: None Reported - Past Family History Father History Unknown: Yes Additional Family Medical History / Comment(s): from aneurysm 5 years after Mother History Unknown: Yes Additional Family Medical History / Comment(s): from aneurysm and cancer at age 58 Medications and Allergies Home Medications Medication Instructions Recorded Confirmed Type Albuterol Inhaler [Ventolin Hfa 1 puff INHALATION RT-Q6H PRN 03/12/16 05/24/16 History Inhaler] HYDROcodone/APAP 10-325MG [[place] 1 tab PO QID 03/12/16 05/24/16 History 10-325] Pregabalin [Lyrica] 75 mg PO BID 03/31/16 05/24/16 History ALPRAZolam [Xanax] 1 mg PO DAILY PRN 05/23/16 05/24/16 History Allergies Allergy/AdvReac Type Severity Reaction Status Date / Time ketorolac tromethamine Allergy Rash/Hives Verified 05/24/16 11:19 [From Toradol] levofloxacin [From Levaquin] Allergy Rash/Hives Verified 05/24/16 11:19 morphine Allergy Rash/Hives Verified 05/24/16 11:19 Penicillins Allergy Rash/Hives Verified 05/24/16 11:19 propoxyphene napsylate Allergy Rash/Hives Verified 05/24/16 11:19 [From [place]-N 100] tramadol Allergy Rash/Hives Verified 05/24/16 11:19 aspirin AdvReac Nausea & Verified 05/24/16 11:19 Vomiting tomato AdvReac Unknown Verified 05/24/16 11:19 Surgical - Exam Vital Signs Temp Pulse Resp BP Pulse Ox 97.1 F L 80 16 148/81 99 05/24/16 11:23 05/24/16 11:23 05/24/16 11:23 05/24/16 11:23 05/24/16 11:23 General: Patient is alert and oriented to time, place and person and cooperative with exam. He is not in acute distress. HEENT: No pallor, no icterus, no thyroid enlargement, no cervical lymphadenopathy.Edentulous Chest: Bilateral equal breath sounds present. No wheezes, no crackles. Cardiovascular: Regular rate and rhythm. Abdomen: Soft, nontender, nondistended. N Integumentary: Bilateral lower extremity chronic venous dermatitis. No active ulcers or discharge. Neurologic: Cranial nerves II-XII intact. Strength upper and lower extremities 5/5. No focal neurologic deficits. Gait is normal. Psychiatric: No anxiety or psychosis. No suicidal thoughts. Assessment and Plan (1) Epigastric pain Status: Acute Plan: 1. Informed consent obtained and patient elected to undergo EGD with possible biopsy. The risks, benefits and potential complications explained patient elected to undergo the procedure
[2016-05-24 12:42] VITALS: BP 130/82; PULSE 69
[2016-05-24] MEDS ORDERED: MEPERIDINE 50 MG/ML SYRINGE IVP ONE (12:53)
--- NOTE | 2016-07-09 18:38 | P.OP ---
Date of Procedure: 05/24/16 Preoperative Diagnosis: RUQ pain Nause and vomiting Postoperative Diagnosis: Same Procedure(s) Performed: EGD with bx Anesthesia: ADILENE Surgeon: Radha Curry Pathology: none sent Condition: stable Disposition: PACU Indications for Procedure: 31 yrs old female with RUQ pain , nausea and vomiting. Informed consent obtained for EGD with bx Operative Findings: Esophagitis - mid esophagitis Superficial gastric erosions Description of Procedure: A timeout was performed to verify the correct patient and correct procedure. Patient was on continuous vitals and pulse ox monitoring throughout the procedure. She was placed in lateral decubitus position and an oral bite block was inserted. A well-lubricated Olympus upper endoscope was passed orally. The esophagus was intubated without difficulty. The vocal cords were visualised and protected at all times. The endoscope was passed beyond the pylorus into the first and second portion of the duodenum. No abnormality is noted in the duodenum mucosa. There were superficial erosions along the prepyloric area Two random biopsies were taken from the gastric antrum using cold biopsy forceps. The scope was then retroflexed. No hiatal hernia. The GE junction is measured at 36 cm from the incisors . No evidence of reflux esophagitis. The endoscope was gradually withdrawn. Patchy esophagitis in mid esophagus and bx taken using cold bx forceps . Patient tolerated the procedure well and was taken to post anesthesia care unit in stable condition. SPECIMEN: Antral biopsy Esophagus bx Final Pathologic Diagnosis A. GASTRIC ANTRUM, BIOPSY: MILD CHRONIC GASTRITIS. IMMUNOPEROXIDASE STAIN NEGATIVE FOR HELICOBACTER PYLORI ORGANISMS (CONTROLS APPROPRIATE). B. MID ESOPHAGUS, BIOPSY: ACUTE ESOPHAGITIS. SPECIAL STAINS FOR FUNGAL ORGANISMS NEGATIVE
== END 2016-05-24 13:30 | disposition home or self-care (01) ==
LOC: ORWHC2ENDO 10:40
PROVIDERS: ATTEND Surgery
DX: K20.9 Esophagitis, unspecified (principal); K29.50 Unspecified chronic gastritis without bleeding; J45.909 Unspecified asthma, uncomplicated; F41.9 Anxiety disorder, unspecified; G62.9 Polyneuropathy, unspecified; D68.2 Hereditary deficiency of other clotting factors; Z86.73 Personal history of transient ischemic attack (TIA), and cerebral infarction without residual deficits; Z79.899 Other long term (current) drug therapy; Z79.891 Long term (current) use of opiate analgesic; Z79.1 Long term (current) use of non-steroidal anti-inflammatories (NSAID); Z88.5 Allergy status to narcotic agent; Z88.0 Allergy status to penicillin; Z88.8 Allergy status to other drugs, medicaments and biological substances; Z91.018 Allergy to other foods
CPT/HCPCS: 88305; 88312; 88342; 43239; J2175; J2001; J2704

== ENCOUNTER → 2016-08-10 | Outpatient (CLI) | payer OTHER ==
--- NOTE | 2016-08-10 16:18 | CT ---
EXAMINATION TYPE: CT brain wo con DATE OF EXAM: 08/10/2016 COMPARISON: CT brain December 17, 2014. HISTORY: Patient complains of headaches for a long time with nausea and vomiting. CT DLP: 935.80 mGycm. Automated Exposure Control for Dose Reduction was Utilized. TECHNIQUE: CT scan of the head is performed without contrast. FINDINGS: There is no acute intracranial hemorrhage, mass effect, or midline shift identified. The ventricles and sulci are within normal limits in size. The globes are intact and the visualized sin uses are clear. The calvarium is intact. IMPRESSION: No acute intracranial hemorrhage or midline shift is seen. No significant change from pr ior.
== END | disposition home or self-care (01) ==
LOC: RADCTMAIN 15:53
PROVIDERS: ATTEND Family Medicine
DX: R51 Headache (principal)
CPT/HCPCS: 70450

== ENCOUNTER 2016-08-12 16:52 | Emergency (ER) | payer OTHER ==
[2016-08-12 17:00] VITALS: BP 125/70; PULSE 103; RESP 16; TEMP 98.7
[2016-08-12] MEDS ORDERED: ACETAMINOPHEN TAB 500 MG TAB PO STA (17:57)
[2016-08-12] MEDS ORDERED: ONDANSETRON 4 MG/2 ML VIAL IVP STA (17:57)
[2016-08-12] MEDS ORDERED: SODIUM CHLORIDE 0.9% 500 ML IV STA (17:57)
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
[2016-08-12 18:34] LABS: Basophils % (A) 1 %; CH 30.4; CHCM 34.2; Eosinophils # (A) 0.3 k/uL (0-0.7); Eosinophils % (A) 3 %; HCT 35.6 % (34.0-46.0); Luc # (Auto) 0.15; Luc % (Auto) 2; Lymphocytes % (A) 22 %; MCH 30.1 pg (25.0-35.0); MCHC 33.7 g/dL (31.0-37.0); MCV 89.2 fL (80.0-100.0); Mean Platelet Volume 6.8; Monocytes # (A) 0.4 k/uL (0-1.0); Monocytes % (A) 4 %; Neutrophils # (A) 6.1 k/uL (1.3-7.7); Neutrophils % (A) 69 %; RBC 3.99 m/uL (3.80-5.40); RDW 13.6 % (11.5-15.5); WBC 8.9 k/uL (3.8-10.6); WBC (Perox) 9.35
[2016-08-12 18:40] LABS: Appearance,Urine Cloudy (Clear); Bacteria,Urine Rare /hpf; Bilirubin,Urine Negative (Negative); Glucose,Urine (UA) Negative (Negative); Ketones,Urine Negative (Negative); Leukocyte Esterase,Urine Negative (Negative); Mucus,Urine Many /hpf; Nitrite,Urine Negative (Negative); PH, Urine 5.5 (5.0-8.0); Particle Count 20710; Protein,Urine Trace (Negative); Squamous Epithelial Cell,Urine 4 /hpf (0-4); UA Billing (MACRO vs. MICRO) MICRO; WBC,Urine 6 /hpf (0-5)
[2016-08-12 19:02] LABS: ALT 26 U/L (9-52); AST 46 U/L (14-36); Alkaline Phosphatase 84 U/L (38-126); Anion Gap 11 mmol/L; Blood Urea Nitrogen 13 mg/dL (7-17); Calcium 9.4 mg/dL (8.4-10.2); Carbon Dioxide 24 mmol/L (22-30); Chloride 106 mmol/L (98-107); Glucose 96 mg/dL (74-99); Non-African American GFR(MDRD) >60 (>60 ml/min/1.73 sqM); Sodium 141 mmol/L (137-145); Total Bilirubin 0.9 mg/dL (0.2-1.3); Total Protein 7.5 g/dL (6.3-8.2)
== END 2016-08-12 19:24 | disposition home or self-care (01) ==
LOC: EC 16:52
DX: G44.209 Tension-type headache, unspecified, not intractable (principal); G43.109 Migraine with aura, not intractable, without status migrainosus; R11.2 Nausea with vomiting, unspecified; F41.9 Anxiety disorder, unspecified; G35 Multiple sclerosis; G89.29 Other chronic pain; Z79.891 Long term (current) use of opiate analgesic; Z79.899 Other long term (current) drug therapy; Z88.6 Allergy status to analgesic agent; Z88.5 Allergy status to narcotic agent; Z88.0 Allergy status to penicillin; Z91.018 Allergy to other foods
CPT/HCPCS: 36415; 80053; 85025; 81001; 80306; 87086; 99284; 96374; 96361; J2405

== ENCOUNTER 2016-12-02 15:38 | Emergency (ER) | payer MEDICARE, OTHER ==
[2016-12-02] MEDS ORDERED: ONDANSETRON 4 MG/2 ML VIAL IVP STA (16:14)
[2016-12-02] MEDS ORDERED: HYDROmorphone 0.5 MG/0.5 ML SYRINGE IVP STA (16:14)
[2016-12-02] MEDS ORDERED: SODIUM CHLORIDE 0.9% 1,000 ML IV STA (16:14)
[2016-12-02 16:51] LABS: Basophils % (A) 0 %; CH 31.2; CHCM 34.6; Eosinophils # (A) 0.3 k/uL (0-0.7); Eosinophils % (A) 4 %; HCT 39.2 % (34.0-46.0); HDW 3.13; HGB 12.9 gm/dL (11.4-16.0); Luc % (Auto) 1; Lymphocytes # (A) 1.7 k/uL (1.0-4.8); Lymphocytes % (A) 22 %; MCV 90.8 fL (80.0-100.0); Mean Platelet Volume 7.4; Monocytes # (A) 0.4 k/uL (0-1.0); Monocytes % (A) 5 %; Neutrophils # (A) 5.3 k/uL (1.3-7.7); Neutrophils % (A) 69 %; RBC 4.31 m/uL (3.80-5.40); RDW 14.3 % (11.5-15.5); WBC 7.8 k/uL (3.8-10.6); WBC (Perox) 8.09
[2016-12-02 17:04] LABS: ALT 44 U/L (9-52); AST 34 U/L (14-36); Alkaline Phosphatase 87 U/L (38-126); Amylase <30 U/L (30-110); Anion Gap 11 mmol/L; Blood Urea Nitrogen 10 mg/dL (7-17); Calcium 9.1 mg/dL (8.4-10.2); Carbon Dioxide 25 mmol/L (22-30); Chloride 103 mmol/L (98-107); Glucose 92 mg/dL (74-99); Non-African American GFR(MDRD) >60 (>60 ml/min/1.73 sqM); Potassium 4.1 mmol/L (3.5-5.1); Sodium 139 mmol/L (137-145); Total Bilirubin 0.5 mg/dL (0.2-1.3); Total Protein 7.8 g/dL (6.3-8.2)
[2016-12-02 17:07] LABS: Appearance,Urine Cloudy (Clear); Bacteria,Urine Occasional /hpf; Bilirubin,Urine Negative (Negative); Glucose,Urine (UA) Negative (Negative); Ketones,Urine Negative (Negative); Leukocyte Esterase,Urine Negative (Negative); Mucus,Urine Few /hpf; Nitrite,Urine Negative (Negative); Particle Count 11299; Protein,Urine Trace (Negative); RBC,Urine 3 /hpf (0-5); Specific Gravity,Urine 1.023 (1.001-1.035); Squamous Epithelial Cell,Urine 17 /hpf (0-4); UA Billing (MACRO vs. MICRO) MICRO; WBC,Urine 2 /hpf (0-5)
--- NOTE | 2016-12-02 17:10 | XR ---
EXAMINATION TYPE: XR abdomen 2V DATE OF EXAM: 12/02/2016 4:57 PM CLINICAL HISTORY: Left flank pain TECHNIQUE: Upright and supine images of the abdomen are obtained. COMPARISON: None. FINDINGS: Scattered gas is seen in non-distended small bowel loops. Gas and fecal material is seen in non-distended colon. There is no visceromegaly, pneumoperitoneum, or abnormal calcification apprecia lauren. Cholecystectomy clips and right hemipelvic surgical clips are noted. The lung bases are clear an d the osseous structures are intact. IMPRESSION: Nonobstructive bowel gas pattern. No radiopaque calculi.
[2016-12-02] MEDS ORDERED: PHENAZOPYRIDINE 200 MG TAB PO STA (17:28)
[2016-12-02] MEDS ORDERED: SULFAMETH-TMP DS STARTER PACK 2 TAB BTL PO STA (17:28)
--- NOTE | 2016-12-02 17:31 | ED ---
General Adult HPI - General Chief complaint: Abdominal Pain Stated complaint: Syncope Time Seen by Provider: 12/02/16 15:55 Source: patient, RN notes reviewed, old records reviewed Mode of arrival: wheelchair Limitations: no limitations - History of Present Illness Initial comments: Chief complaint history of present illness this is a 31-year-old female with a complaint of discomfort to her bladder and kidney area. Nausea vomiting but no diarrhea. Complains of frequency urgency and dysuria. Ongoing for 2 days. No other complaints. - Related Data Home Medications Medication Instructions Recorded Confirmed Albuterol Inhaler [Ventolin Hfa 1 puff INHALATION RT-Q6H PRN 03/12/16 12/02/16 Inhaler] HYDROcodone/APAP 10-325MG [[place] 1 tab PO QID 03/12/16 12/02/16 10-325] Gabapentin [Neurontin] 800 mg PO TID 08/12/16 12/02/16 Previous Rx's Medication Instructions Recorded Phenazopyridine [Pyridium] 200 mg PO TID #6 tablet 12/02/16 Sulfamethox-Tmp 800-160Mg [Bactrim 1 each PO Q12HR #20 tab 12/02/16 DS 800-160 mg] Allergies Allergy/AdvReac Type Severity Reaction Status Date / Time ketorolac tromethamine Allergy Rash/Hives Verified 12/02/16 16:31 [From Toradol] levofloxacin [From Levaquin] Allergy Rash/Hives Verified 12/02/16 16:31 morphine Allergy Rash/Hives Verified 12/02/16 16:31 Penicillins Allergy Rash/Hives Verified 12/02/16 16:31 propoxyphene napsylate Allergy Rash/Hives Verified 12/02/16 16:31 [From Darvocet-N 100] tramadol Allergy Rash/Hives Verified 12/02/16 16:31 aspirin AdvReac Nausea & Verified 12/02/16 16:31 Vomiting tomato AdvReac Unknown Verified 12/02/16 16:31 Review of Systems ROS Statement: Those systems with pertinent positive or pertinent negative responses have been documented in the HPI. Review of systems no headache chest pain shortness of breath or GI problems. She has had frequency urgency dysuria. Denies vaginal discharge. Denies any vaginal discharge. Past medical problems significant for TIA, pyelonephritis ADHD. Surgeries , cholecystectomy, hysterectomy, left knee joint replacement. Family history mother had ovarian cancer. Nonsmoker nondrinker. ROS Other: All systems not noted in ROS Statement are negative. Past Medical History Past Medical History: CVA/TIA Additional Past Medical History / Comment(s): pyelonephritis, ADD, chronic back pain, MS, factor 12 deficiency, abdominal pain, vomiting History of Any Multi-Drug Resistant Organisms: ESBL, MRSA Date of last positivie culture/infection: 01/14/15-ESBL E.coli; 10/29/05-MRSA MDRO Source:: ESBL Urine; MRSA Unknown Past Surgical History: Section, Cholecystectomy, Hysterectomy, Joint Replacement Additional Past Surgical History / Comment(s): Left knee replacement, Past Anesthesia/Blood Transfusion Reactions: No Reported Reaction Past Psychological History: ADD/ADHD, Anxiety Smoking Status: Never smoker Past Alcohol Use History: None Reported Past Drug Use History: None Reported - Past Family History Father History Unknown: Yes Additional Family Medical History / Comment(s): from aneurysm 5 years after Mother History Unknown: Yes Additional Family Medical History / Comment(s): from aneurysm and cancer at age 58 General Exam - General Exam Comments Initial Comments: General: The patient is awake and alert, complaining of 2 days of urinary tract and's infection type symptoms of frequency urgency and dysuria. States she has a fever now currently is 97.9 pulse 98 respiratory rate 18 pulse ox on percent room air blood pressure 138/68 Eye: Pupils are equal, round and reactive to light, extra-ocular movements are intact ; there is normal conjunctiva bilaterally. No signs of icterus. Ears, nose, mouth and throat: There are moist mucous membranes and no oral lesions. Neck: The neck is supple, there is no tenderness, no lymphadenopathy. Cardiovascular: There is a regular rate and rhythm. No murmur, rub or gallop is appreciated. Respiratory: Lungs are clear to auscultation, respirations are non-labored, breath sounds are equal. No wheezes, stridor, rales, or rhonchi. Gastrointestinal: Patient complains discomfort in the left flank no chills no fever. She has complaint of frequency urgency dysuria. Nonetheless blood or dark urine. Back: Mild left flank discomfort. The patient does have chronic pain though. Musculoskeletal: Normal ROM, no tenderness, There is no pedal edema. There is no calf tenderness or swelling. Sensation intact. Pulses equal bilaterally 2+. Neurological: No neuro deficits Skin: Skin is warm and dry and no rashes or lesions are noted. Limitations: no limitations Course Vital Signs 12/02/16 15:40 Temperature 97.9 F Pulse Rate 92 Respiratory 18 Rate Blood Pressure 138/68 O2 Sat by Pulse 100 Oximetry Medical Decision Making - Medical Decision Making Medical decision-making the patient's labs show white count 7.8 hemoglobin 12.9 hematocrit 39. Potassium 4.1 BUN 10 creatinine 0.59 and GFR greater than 60. Glucose 92 amylase lipase normal. Urine 3 reds 2 whites. X-ray of the abdomen was done and reviewed by radiologist entire report was reviewed final impression is nonobstructive bowel gas pattern. No radiopaque calculi. As read by Dr. Sumner - Lab Data Result diagrams: 12/02/16 16:45 12/02/16 16:45 Lab Results 12/02/16 12/02/16 12/02/16 Range/Units 16:45 16:45 16:45 WBC 7.8 (3.8-10.6) k/uL RBC 4.31 (3.80-5.40) m/uL Hgb 12.9 (11.4-16.0) gm/dL Hct 39.2 (34.0-46.0) % MCV 90.8 (80.0-100.0) fL MCH 30.0 (25.0-35.0) pg MCHC 33.0 (31.0-37.0) g/dL RDW 14.3 (11.5-15.5) % Plt Count 259 (150-450) k/uL Neutrophils % 69 % Lymphocytes % 22 % Monocytes % 5 % Eosinophils % 4 % Basophils % 0 % Neutrophils # 5.3 (1.3-7.7) k/uL Lymphocytes # 1.7 (1.0-4.8) k/uL Monocytes # 0.4 (0-1.0) k/uL Eosinophils # 0.3 (0-0.7) k/uL Basophils # 0.0 (0-0.2) k/uL Sodium 139 (137-145) mmol/L Potassium 4.1 (3.5-5.1) mmol/L Chloride 103 (98-107) mmol/L Carbon Dioxide 25 (22-30) mmol/L Anion Gap 11 mmol/L BUN 10 (7-17) mg/dL Creatinine 0.59 (0.52-1.04) mg/dL Est GFR (MDRD) Af Amer >60 (>60 ml/min/1.73 sqM) Est GFR (MDRD) Non-Af >60 (>60 ml/min/1.73 sqM) Glucose 92 (74-99) mg/dL Calcium 9.1 (8.4-10.2) mg/dL Total Bilirubin 0.5 (0.2-1.3) mg/dL AST 34 (14-36) U/L ALT 44 (9-52) U/L Alkaline Phosphatase 87 (38-126) U/L Total Protein 7.8 (6.3-8.2) g/dL Albumin 4.3 (3.5-5.0) g/dL Amylase <30 L (30-110) U/L Lipase 35 (23-300) U/L Urine Color Yellow Urine Appearance Cloudy H (Clear) Urine pH 7.0 (5.0-8.0) Ur Specific [place] 1.023 (1.001-1.035) Urine Protein Trace H (Negative) Urine Glucose (UA) Negative (Negative) Urine Ketones Negative (Negative) Urine Blood Negative (Negative) Urine Nitrite Negative (Negative) Urine Bilirubin Negative (Negative) Urine Urobilinogen 3.0 (<2.0) mg/dL Ur Leukocyte Esterase Negative (Negative) Urine RBC 3 (0-5) /hpf Urine WBC 2 (0-5) /hpf Ur Squamous Epith Cells 17 H (0-4) /hpf Urine Bacteria Occasional H (None) /hpf Urine Mucus Few H (None) /hpf Disposition Clinical Impression: Urinary tract infection Disposition: HOME SELF-CARE Condition: Fair Instructions: Urinary Tract Infection in Women (ED) Additional Instructions: Increase fluids and take medications as directed Prescriptions: Phenazopyridine [Pyridium] 200 mg PO TID #6 tablet Sulfamethox-Tmp 800-160Mg [Bactrim DS 800-160 mg] 1 each PO Q12HR #20 tab Referrals: Aldair Bowen MD [Primary Care Provider] - 1-2 days Time of Disposition: 17:31
[2016-12-02 17:55] VITALS: BP 150/78; PULSE 89; RESP 16; TEMP 98.2
== END 2016-12-02 17:57 | disposition home or self-care (01) ==
LOC: EC 15:38
DX: N39.0 Urinary tract infection, site not specified (principal); R11.2 Nausea with vomiting, unspecified; Z86.73 Personal history of transient ischemic attack (TIA), and cerebral infarction without residual deficits; Z90.49 Acquired absence of other specified parts of digestive tract; Z86.14 Personal history of Methicillin resistant Staphylococcus aureus infection; Z88.6 Allergy status to analgesic agent; Z88.1 Allergy status to other antibiotic agents; Z88.5 Allergy status to narcotic agent; Z88.0 Allergy status to penicillin; Z91.018 Allergy to other foods; Z79.891 Long term (current) use of opiate analgesic; Z79.899 Other long term (current) drug therapy
CPT/HCPCS: 96361 ×2; 96374 ×2; 96375 ×2; 99284 ×2; 36415; 80053; 82150; 83690; 85025; 81001; 87086; 74020; J2405; J1170

== ENCOUNTER 2016-12-05 13:22 | Emergency (ER) | payer MEDICARE, OTHER ==
--- NOTE | 2016-12-05 14:21 | ED ---
General Adult HPI - General Chief complaint: Recheck/Abnormal Lab/Rx Stated complaint: Abd Pain Time Seen by Provider: 12/05/16 13:33 Source: patient, RN notes reviewed Mode of arrival: wheelchair Limitations: no limitations - History of Present Illness Initial comments: 31-year-old female presents emergency from she complaint bilateral flank pain. Patient states she was diagnosed with a urinary tract infection. Days ago. Patient states that she feels the symptoms are getting worse. She dates that she does not feel nauseated and she believes that she had a fever yesterday. Patient denies any diarrhea, constipation, vaginal bleeding or vaginal discharge. Patient had a prior hysterectomy. Patient denies any headache or dizziness. She states is bilateral flank pain feels that she may have had a kidney infection. - Related Data Home Medications Medication Instructions Recorded Confirmed Albuterol Inhaler [Ventolin Hfa 1 puff INHALATION RT-Q6H PRN 03/12/16 12/05/16 Inhaler] HYDROcodone/APAP 10-325MG [[place] 1 tab PO QID 03/12/16 12/05/16 10-325] Gabapentin [Neurontin] 800 mg PO TID 08/12/16 12/05/16 Sulfamethox-Tmp 800-160Mg [Bactrim 1 tab PO Q12HR 12/05/16 12/05/16 DS 800-160 mg] Previous Rx's Medication Instructions Recorded Orphenadrine [Norflex] 100 mg PO Q12H #14 tablet.er 12/05/16 Allergies Allergy/AdvReac Type Severity Reaction Status Date / Time ketorolac tromethamine Allergy Rash/Hives Verified 12/05/16 13:37 [From Toradol] levofloxacin [From Levaquin] Allergy Rash/Hives Verified 12/05/16 13:37 morphine Allergy Rash/Hives Verified 12/05/16 13:37 Penicillins Allergy Rash/Hives Verified 12/05/16 13:37 propoxyphene napsylate Allergy Rash/Hives Verified 12/05/16 13:37 [From Darvocet-N 100] tramadol Allergy Rash/Hives Verified 12/05/16 13:37 aspirin AdvReac Nausea & Verified 12/05/16 13:37 Vomiting tomato AdvReac Unknown Verified 12/05/16 13:37 Review of Systems ROS Statement: Those systems with pertinent positive or pertinent negative responses have been documented in the HPI. ROS Other: All systems not noted in ROS Statement are negative. Past Medical History Past Medical History: CVA/TIA Additional Past Medical History / Comment(s): pyelonephritis, ADD, chronic back pain, MS, factor 12 deficiency, abdominal pain, vomiting History of Any Multi-Drug Resistant Organisms: ESBL, MRSA Date of last positivie culture/infection: 01/14/15-ESBL E.coli; 10/29/05-MRSA MDRO Source:: ESBL Urine; MRSA Unknown Past Surgical History: Section, Cholecystectomy, Hysterectomy, Joint Replacement Additional Past Surgical History / Comment(s): Left knee replacement, Past Anesthesia/Blood Transfusion Reactions: No Reported Reaction Past Psychological History: ADD/ADHD, Anxiety Smoking Status: Never smoker Past Alcohol Use History: None Reported Past Drug Use History: None Reported - Past Family History Father History Unknown: Yes Additional Family Medical History / Comment(s): from aneurysm 5 years after Mother History Unknown: Yes Additional Family Medical History / Comment(s): from aneurysm and cancer at age 58 General Exam Limitations: no limitations General appearance: alert, in no apparent distress Head exam: Present: atraumatic, normocephalic, normal inspection Respiratory exam: Present: normal lung sounds bilaterally. Absent: respiratory distress, wheezes, rales, rhonchi, stridor Cardiovascular Exam: Present: regular rate, normal rhythm, normal heart sounds. Absent: systolic murmur, diastolic murmur, rubs, gallop, clicks GI/Abdominal exam: Present: soft, tenderness (Mild suprapubic), normal bowel sounds. Absent: distended, guarding, rebound, rigid Back exam: Absent: CVA tenderness (R), CVA tenderness (L) Skin exam: Present: warm, dry, intact, normal color. Absent: rash Course Vital Signs 12/05/16 13:27 Temperature 97.8 F Pulse Rate 80 Respiratory 20 Rate Blood Pressure 128/72 O2 Sat by Pulse 99 Oximetry Medical Decision Making - Medical Decision Making 31-year-old female presented emergency department to complaint of left flank pain. There is no evidence UTI or pyelonephritis. Patient was likely having back pain which is somewhat chronic for her. Patient will be discharged at this time return parameters were discussed. - Lab Data Result diagrams: 12/05/16 14:15 12/05/16 14:15 Lab Results 12/05/16 12/05/16 12/05/16 Range/Units 14:15 14:15 14:16 WBC 9.2 (3.8-10.6) k/uL RBC 4.47 (3.80-5.40) m/uL Hgb 13.3 (11.4-16.0) gm/dL Hct 39.5 (34.0-46.0) % MCV 88.5 (80.0-100.0) fL MCH 29.8 (25.0-35.0) pg MCHC 33.7 (31.0-37.0) g/dL RDW 14.1 (11.5-15.5) % Plt Count 286 (150-450) k/uL Neutrophils % 81 % Lymphocytes % 13 % Monocytes % 3 % Eosinophils % 3 % Basophils % 0 % Neutrophils # 7.4 (1.3-7.7) k/uL Lymphocytes # 1.2 (1.0-4.8) k/uL Monocytes # 0.3 (0-1.0) k/uL Eosinophils # 0.2 (0-0.7) k/uL Basophils # 0.0 (0-0.2) k/uL Sodium 140 (137-145) mmol/L Potassium 4.2 (3.5-5.1) mmol/L Chloride 104 (98-107) mmol/L Carbon Dioxide 25 (22-30) mmol/L Anion Gap 11 mmol/L BUN 9 (7-17) mg/dL Creatinine 0.62 (0.52-1.04) mg/dL Est GFR (MDRD) Af Amer >60 (>60 ml/min/1.73 sqM) Est GFR (MDRD) Non-Af >60 (>60 ml/min/1.73 sqM) Glucose 107 H (74-99) mg/dL Calcium 9.7 (8.4-10.2) mg/dL Total Bilirubin 0.6 (0.2-1.3) mg/dL AST 27 (14-36) U/L ALT 37 (9-52) U/L Alkaline Phosphatase 87 (38-126) U/L Total Protein 8.6 H (6.3-8.2) g/dL Albumin 4.7 (3.5-5.0) g/dL Amylase 31 (30-110) U/L Lipase 33 (23-300) U/L Urine Color Light Yellow Urine Appearance Cloudy H (Clear) Urine pH 8.5 H (5.0-8.0) Ur Specific [place] 1.007 (1.001-1.035) Urine Protein Negative (Negative) Urine Glucose (UA) Negative (Negative) Urine Ketones Negative (Negative) Urine Blood Negative (Negative) Urine Nitrite Negative (Negative) Urine Bilirubin Negative (Negative) Urine Urobilinogen <2.0 (<2.0) mg/dL Ur Leukocyte Esterase Negative (Negative) Urine RBC <1 (0-5) /hpf Urine WBC 1 (0-5) /hpf Ur Squamous Epith Cells 6 H (0-4) /hpf Urine Bacteria Few H (None) /hpf Urine Mucus Rare H (None) /hpf Disposition Clinical Impression: Back pain Disposition: HOME SELF-CARE Condition: Stable Instructions: Back Pain (ED) Additional Instructions: Please return to the Emergency Department if symptoms worsen or any other concerns. Prescriptions: Orphenadrine [Norflex] 100 mg PO Q12H #14 tablet.er Referrals: Aldair Bowen MD [Primary Care Provider] - 1-2 days Time of Disposition: 15:16
[2016-12-05 14:34] LABS: Basophils % (A) 0 %; CH 30.9; CHCM 35.1; Eosinophils # (A) 0.2 k/uL (0-0.7); Eosinophils % (A) 3 %; HCT 39.5 % (34.0-46.0); HDW 3.15; HGB 13.3 gm/dL (11.4-16.0); Luc # (Auto) 0.08; Luc % (Auto) 1; Lymphocytes # (A) 1.2 k/uL (1.0-4.8); Lymphocytes % (A) 13 %; MCH 29.8 pg (25.0-35.0); MCHC 33.7 g/dL (31.0-37.0); MCV 88.5 fL (80.0-100.0); Mean Platelet Volume 7.3; Monocytes # (A) 0.3 k/uL (0-1.0); Monocytes % (A) 3 %; Neutrophils # (A) 7.4 k/uL (1.3-7.7); Neutrophils % (A) 81 %; RBC 4.47 m/uL (3.80-5.40); RDW 14.1 % (11.5-15.5); WBC 9.2 k/uL (3.8-10.6); WBC (Perox) 9.12
[2016-12-05 14:44] LABS: Appearance,Urine Cloudy (Clear); Bacteria,Urine Few /hpf; Bilirubin,Urine Negative (Negative); Glucose,Urine (UA) Negative (Negative); Ketones,Urine Negative (Negative); Leukocyte Esterase,Urine Negative (Negative); Mucus,Urine Rare /hpf; Nitrite,Urine Negative (Negative); PH, Urine 8.5 (5.0-8.0); Particle Count 4990; Protein,Urine Negative (Negative); RBC,Urine <1 /hpf (0-5); Specific Gravity,Urine 1.007 (1.001-1.035); Squamous Epithelial Cell,Urine 6 /hpf (0-4); UA Billing (MACRO vs. MICRO) MICRO; Urobilinogen,Urine <2.0 mg/dL (<2.0); WBC,Urine 1 /hpf (0-5)
[2016-12-05 14:52] LABS: ALT 37 U/L (9-52); AST 27 U/L (14-36); Alkaline Phosphatase 87 U/L (38-126); Amylase 31 U/L (30-110); Anion Gap 11 mmol/L; Blood Urea Nitrogen 9 mg/dL (7-17); Calcium 9.7 mg/dL (8.4-10.2); Carbon Dioxide 25 mmol/L (22-30); Chloride 104 mmol/L (98-107); Glucose 107 mg/dL (74-99); Non-African American GFR(MDRD) >60 (>60 ml/min/1.73 sqM); Potassium 4.2 mmol/L (3.5-5.1); Sodium 140 mmol/L (137-145); Total Bilirubin 0.6 mg/dL (0.2-1.3); Total Protein 8.6 g/dL (6.3-8.2)
[2016-12-05] MEDS ORDERED: ORPHENADRINE 30 MG/ML 2 ML VIAL IVP STA (15:12)
[2016-12-05 15:31] VITALS: BP 156/84; PULSE 67; RESP 18; TEMP 97.9
== END 2016-12-05 15:31 | disposition home or self-care (01) ==
LOC: EC 13:22
DX: M54.9 Dorsalgia, unspecified (principal); Z86.14 Personal history of Methicillin resistant Staphylococcus aureus infection; Z88.6 Allergy status to analgesic agent; Z88.1 Allergy status to other antibiotic agents; Z88.5 Allergy status to narcotic agent; Z88.0 Allergy status to penicillin; Z91.018 Allergy to other foods; Z79.891 Long term (current) use of opiate analgesic; Z79.899 Other long term (current) drug therapy
CPT/HCPCS: 99283 ×2; 96374 ×2; 36415; 80053; 82150; 83690; 85025; 81001; J2360

== ENCOUNTER 2017-01-14 11:56 | Emergency (ER) | payer MEDICARE, OTHER ==
[2017-01-14 12:04] VITALS: RESP 18; TEMP 98.9
[2017-01-14] MEDS ORDERED: ASPIRIN 325 MG TAB PO STA (12:43)
[2017-01-14 12:55] LABS: Basophils % (A) 0 %; CH 29.6; CHCM 33.2; Eosinophils # (A) 0.2 k/uL (0-0.7); Eosinophils % (A) 3 %; HCT 28.8 % (34.0-46.0); HDW 3.04; Luc # (Auto) 0.06; Luc % (Auto) 1; Lymphocytes # (A) 1.2 k/uL (1.0-4.8); Lymphocytes % (A) 19 %; MCH 28.9 pg (25.0-35.0); MCHC 32.2 g/dL (31.0-37.0); MCV 89.7 fL (80.0-100.0); Mean Platelet Volume 7.3; Monocytes # (A) 0.3 k/uL (0-1.0); Monocytes % (A) 4 %; Neutrophils # (A) 4.6 k/uL (1.3-7.7); Neutrophils % (A) 72 %; RBC 3.22 m/uL (3.80-5.40); RDW 14.7 % (11.5-15.5); WBC 6.3 k/uL (3.8-10.6); WBC (Perox) 6.31
[2017-01-14 13:07] LABS: Anion Gap 11 mmol/L; Blood Urea Nitrogen 9 mg/dL (7-17); Calcium 9.3 mg/dL (8.4-10.2); Carbon Dioxide 26 mmol/L (22-30); Chloride 105 mmol/L (98-107); Glucose 90 mg/dL (74-99); HGB 9.3 gm/dL (11.4-16.0); Non-African American GFR(MDRD) >60 (>60 ml/min/1.73 sqM); Potassium 4.2 mmol/L (3.5-5.1); Sodium 142 mmol/L (137-145)
--- NOTE | 2017-01-14 13:10 | XR ---
EXAMINATION TYPE: XR chest 2V DATE OF EXAM: 01/14/2017 COMPARISON: NONE TECHNIQUE: PA and lateral views submitted. HISTORY: Chest pain FINDINGS: The lungs are clear and there is no pneumothorax, pleural effusion, or focal pneumonia. IMPRESSION: 1. No acute process.
[2017-01-14] MEDS ORDERED: HYDROmorphone 1 MG/ML 1 ML SYRINGE IVP STA (13:31)
[2017-01-14 13:34] LABS: Partial Thromboplastin Time >200.0 sec (22.0-30.0)
[2017-01-14 15:57] LABS: Basophils % (A) 0 %; Eosinophils # (A) 0.3 k/uL (0-0.7); Eosinophils % (A) 3 %; HCT 34.3 % (34.0-46.0); HDW 3.24; HGB 11.5 gm/dL (11.4-16.0); Luc % (Auto) 1; Lymphocytes % (A) 23 %; MCH 29.7 pg (25.0-35.0); MCHC 33.4 g/dL (31.0-37.0); MCV 88.8 fL (80.0-100.0); Monocytes # (A) 0.3 k/uL (0-1.0); Monocytes % (A) 3 %; Neutrophils # (A) 6.1 k/uL (1.3-7.7); Neutrophils % (A) 69 %; RBC 3.87 m/uL (3.80-5.40); RDW 13.6 % (11.5-15.5); WBC 8.8 k/uL (3.8-10.6); WBC (Perox) 8.56
[2017-01-14 17:09] VITALS: BP 112/66; PULSE 74
--- NOTE | 2017-01-14 17:14 | ED ---
Chest Pain HPI - General Chief Complaint: Chest Pain Stated Complaint: Chest Pain-DrAashish Sent Time Seen by Provider: 01/14/17 12:08 Source: patient Mode of arrival: ambulatory Limitations: no limitations - History of Present Illness Initial Comments: 31-year-old female past medical history of factor XII deficiency, CVA/ TIA, pyelonephritis, ADD, chronic back pain, MS, abdominal pain, section, cholecystectomy, hysterectomy, and joint replacements presented for evaluation of left-sided chest pain that radiates to her left shoulder/arm pit and back. She stated this been going on for 2 days and for she thought it was her GERD and she took a Zantac without relief. She states her symptoms are better when laying down and she saw her [facility] physician Dr. Bowen and given the intensity of pain was sent to the ED for further treatment and evaluation. The pain is reproducible with arm movements or with palpation. There is no associated shortness of breath, or pleuritic nature to the pain. - Related Data Home Medications Medication Instructions Recorded Confirmed Albuterol Inhaler [Ventolin Hfa 1 puff INHALATION RT-QID PRN 03/12/16 01/14/17 Inhaler] HYDROcodone/APAP 10-325MG [[place] 1 tab PO QID 03/12/16 01/14/17 10-325] Gabapentin [Neurontin] 800 mg PO TID 08/12/16 01/14/17 Previous Rx's Medication Instructions Recorded Ibuprofen [Motrin] 800 mg PO Q6HR #30 tab 01/14/17 Allergies Allergy/AdvReac Type Severity Reaction Status Date / Time ketorolac tromethamine Allergy Rash/Hives Verified 01/14/17 13:09 [From Toradol] levofloxacin [From Levaquin] Allergy Rash/Hives Verified 01/14/17 13:09 morphine Allergy Rash/Hives Verified 01/14/17 13:09 Penicillins Allergy Rash/Hives Verified 01/14/17 13:09 propoxyphene napsylate Allergy Rash/Hives Verified 01/14/17 13:09 [From Darvocet-N 100] tramadol Allergy Rash/Hives Verified 01/14/17 13:09 aspirin AdvReac Nausea & Verified 01/14/17 13:09 Vomiting tomato AdvReac Unknown Verified 01/14/17 13:09 Review of Systems ROS Statement: Those systems with pertinent positive or pertinent negative responses have been documented in the HPI. ROS Other: All systems not noted in ROS Statement are negative. Constitutional: Denies: fever, chills Eyes: Denies: eye pain, vision change ENT: Denies: ear pain, throat pain Respiratory: Denies: cough, dyspnea Cardiovascular: Reports: chest pain. Denies: palpitations, dyspnea on exertion , orthopnea, edema, syncope, paroxysmal nocturnal dyspnea Endocrine: Denies: fatigue, polydipsia, polyuria Gastrointestinal: Denies: abdominal pain, nausea, vomiting Genitourinary: Denies: urgency, dysuria Musculoskeletal: Reports: back pain (Left upper back pain/shoulder pain) Skin: Denies: rash, lesions Neurological: Denies: headache, weakness Psychiatric: Denies: anxiety, depression Hematological/Lymphatic: Denies: easy bleeding, easy bruising EKG Findings - EKG Comments: EKG Findings:: Normal sinus rhythm with a ventricular rate of 62, VENESSA 124, QRS 88, QT/QTc 410/416. Past Medical History Past Medical History: CVA/TIA Additional Past Medical History / Comment(s): pyelonephritis, ADD, chronic back pain, MS, factor 12 deficiency, abdominal pain, vomiting History of Any Multi-Drug Resistant Organisms: ESBL, MRSA Date of last positivie culture/infection: 01/14/15-ESBL E.coli; 10/29/05-MRSA MDRO Source:: ESBL Urine; MRSA Unknown Past Surgical History: Section, Cholecystectomy, Hysterectomy, Joint Replacement Additional Past Surgical History / Comment(s): Left knee replacement, Past Anesthesia/Blood Transfusion Reactions: No Reported Reaction Past Psychological History: ADD/ADHD, Anxiety Smoking Status: Never smoker Past Alcohol Use History: None Reported Past Drug Use History: None Reported - Past Family History Father History Unknown: Yes Additional Family Medical History / Comment(s): from aneurysm 5 years after Mother History Unknown: Yes Additional Family Medical History / Comment(s): from aneurysm and cancer at age 58 General Exam Limitations: no limitations General appearance: alert, in no apparent distress Head exam: Present: atraumatic, normocephalic, normal inspection Eye exam: Present: normal appearance, PERRL, EOMI. Absent: scleral icterus, conjunctival injection, periorbital swelling ENT exam: Present: normal exam, mucous membranes moist Neck exam: Present: normal inspection. Absent: tenderness, meningismus, lymphadenopathy Respiratory exam: Present: normal lung sounds bilaterally. Absent: respiratory distress, wheezes, rales, rhonchi, stridor Cardiovascular Exam: Present: regular rate, normal rhythm, normal heart sounds. Absent: systolic murmur, diastolic murmur, rubs, gallop, clicks GI/Abdominal exam: Present: soft, normal bowel sounds. Absent: distended, tenderness, guarding, rebound, rigid Rectal exam: Present: deferred Extremities exam: Present: normal inspection, full ROM, normal capillary refill , other (chest tenderness to palpation of the left upper chest radiation around to her back). Absent: tenderness, pedal edema, joint swelling, calf tenderness Back exam: Present: normal inspection Neurological exam: Present: alert, oriented X3, CN II-XII intact Psychiatric exam: Present: normal affect, normal mood Skin exam: Present: warm, dry, intact, normal color, other (no overlying skin changes the noted areas of reproducible chest pain). Absent: rash Course Vital Signs 01/14/17 01/14/17 01/14/17 12:01 12:30 12:31 Temperature 98.9 F Pulse Rate 82 81 Pulse Rate [ 80 Apical] Respiratory 18 18 Rate Blood Pressure 150/70 124/60 O2 Sat by Pulse 95 97 Oximetry 01/14/17 01/14/17 13:34 17:08 Temperature Pulse Rate 69 74 Pulse Rate [ Apical] Respiratory 18 18 Rate Blood Pressure 111/60 112/66 O2 Sat by Pulse 96 98 Oximetry Chest Pain MDM - MDM 31-year-old female presented for evaluation of left-sided chest pain that is reproducible in nature for the last 2 days. She states that she is not tried any medications for these symptoms and hasn't had these symptoms previously. There is no other associated symptoms of shortness of breath, fevers, chills, cough, nausea or vomiting. On physical examination she does have tenderness over the left upper chest and into the armpit. There is no overlying skin changes. Although the exam is consistent with noncardiac chest pain, there remains concern for occult etiologies given her factor 12 deficiency. We'll obtain chest x-ray, EKG, labs, and provide aspirin and pain control. Labs revealed a 4 g drop in her hemoglobin from previous values. Her PTT was greater than 200 however given her factor XII deficiency this is not considered an acute abnormality. Her initial troponin is negative. The patient was reevaluated and had improvement in her pain. She was informed of these results and that she would be held in the ED a little bit longer for repeat troponin 3 hours as well as repeat CBC d-dimer was negative as well. Chest x-ray showed no acute process. These labs revealed a negative troponin once again and her hemoglobin had returned to within her normal baseline limits. The patient was informed of these results and given her HEART score of 1 and a risk of MACE at 0.9-1.7% it was determined that she would be discharged with instruction to follow-up with her primary care physician but to return to this facility for symptoms should worsen or persist. The patient acknowledged an understanding of this information and agreed with this plan of care. Disposition Clinical Impression: Non-cardiac chest pain Disposition: HOME SELF-CARE Condition: Stable Instructions: Chest Pain (ED), Costochondritis (ED) Additional Instructions: Please use medication as discussed. Please follow up with family doctor if symptoms have not improved over the next two days. Please return to the emergency room if your symptoms increase or worsen or for any other concerns. Prescriptions: Ibuprofen [Motrin] 800 mg PO Q6HR #30 tab Referrals: Aldair Bowen MD [Primary Care Provider] - 1-2 days Time of Disposition: 17:14
== END 2017-01-14 17:22 | disposition home or self-care (01) ==
LOC: EC 11:56
DX: R07.9 Chest pain, unspecified (principal); Z86.73 Personal history of transient ischemic attack (TIA), and cerebral infarction without residual deficits; Z88.0 Allergy status to penicillin; Z88.1 Allergy status to other antibiotic agents; Z88.5 Allergy status to narcotic agent; Z88.6 Allergy status to analgesic agent; Z91.018 Allergy to other foods; Z79.891 Long term (current) use of opiate analgesic; Z79.899 Other long term (current) drug therapy
CPT/HCPCS: 99285; 96374; 36415; 93005; 85379; 83880; 80048; 84484; 85025; 85610; 85730; 71020; J1170

== ENCOUNTER 2017-03-10 12:34 | Emergency (ER) | payer MEDICARE, OTHER ==
[2017-03-10 12:58] VITALS: RESP 18
[2017-03-10 13:17] LABS: Appearance,Urine Cloudy (Clear); Bacteria,Urine Many /hpf; Bilirubin,Urine Negative (Negative); Blood,Urine Negative (Negative); Color,Urine Yellow; Glucose,Urine (UA) Negative (Negative); Ketones,Urine Negative (Negative); Leukocyte Esterase,Urine Moderate (Negative); Mucus,Urine Rare /hpf; Nitrite,Urine Negative (Negative); Protein,Urine Negative (Negative); RBC,Urine 2 /hpf (0-5); Squamous Epithelial Cell,Urine 15 /hpf (0-4); Urobilinogen,Urine <2.0 mg/dL (<2.0); WBC,Urine 55 /hpf (0-5)
[2017-03-10] MEDS ORDERED: SODIUM CHLORIDE 0.9% 1,000 ML IV ONE (13:21)
[2017-03-10] MEDS ORDERED: KETOROLAC 30 MG/ML 1 ML VIAL IVP STA (13:21)
[2017-03-10] MEDS ORDERED: cefTRIAXone IN SWFI 2,000 MG/20 ML SYRINGE IVP STA (13:23)
--- NOTE | 2017-03-10 13:45 | ED ---
Abdominal Pain HPI - General Chief Complaint: Abdominal Pain Stated Complaint: Abd Pain, Poss UTI Time Seen by Provider: 03/10/17 13:05 Source: patient, RN notes reviewed, old records reviewed Mode of arrival: ambulatory Limitations: no limitations - History of Present Illness Initial Comments: This patient is 32-year-old female presents today chief complaint of left-sided flank pain, suprapubic pain. She reports stents in the past 3 daysbecome increasingly worse today. She's been alternate Motrin and Tylenol. She reports she's had fever and chills. She denies any chest pain, shortness of breath, nausea or vomiting. She reports is a normal bowel movement. Surgical history include hysterectomy, cholecystectomy. - Related Data Home Medications Medication Instructions Recorded Confirmed HYDROcodone/APAP 10-325MG [[place] 1 tab PO QID 03/12/16 03/10/17 10-325] Gabapentin [Neurontin] 800 mg PO TID 08/12/16 03/10/17 Cyclobenzaprine [Flexeril] 10 mg PO DAILY PRN 03/10/17 03/10/17 Previous Rx's Medication Instructions Recorded Ibuprofen [Motrin] 800 mg PO Q6HR #30 tab 01/14/17 Nitrofurantoin Monohyd/M-Cryst 100 mg PO Q12HR #14 cap 03/10/17 [Macrobid] Allergies Allergy/AdvReac Type Severity Reaction Status Date / Time ketorolac tromethamine Allergy Rash/Hives Verified 03/10/17 13:32 [From Toradol] levofloxacin [From Levaquin] Allergy Rash/Hives Verified 03/10/17 13:32 morphine Allergy Rash/Hives Verified 03/10/17 13:32 Penicillins Allergy Rash/Hives Verified 03/10/17 13:32 propoxyphene napsylate Allergy Rash/Hives Verified 03/10/17 13:32 [From Darvocet-N 100] tramadol Allergy Rash/Hives Verified 03/10/17 13:32 aspirin AdvReac Nausea & Verified 03/10/17 13:32 Vomiting tomato AdvReac Unknown Verified 03/10/17 13:32 Review of Systems ROS Statement: Those systems with pertinent positive or pertinent negative responses have been documented in the HPI. ROS Other: All systems not noted in ROS Statement are negative. Past Medical History Past Medical History: CVA/TIA Additional Past Medical History / Comment(s): pyelonephritis, ADD, chronic back pain, MS, factor 12 deficiency, abdominal pain, vomiting History of Any Multi-Drug Resistant Organisms: ESBL, MRSA Date of last positivie culture/infection: 01/14/15-ESBL E.coli; 10/29/05-MRSA MDRO Source:: ESBL Urine; MRSA Unknown Past Surgical History: Section, Cholecystectomy, Hysterectomy, Joint Replacement Additional Past Surgical History / Comment(s): Left knee replacement, Past Anesthesia/Blood Transfusion Reactions: No Reported Reaction Past Psychological History: ADD/ADHD, Anxiety Smoking Status: Never smoker Past Alcohol Use History: None Reported Past Drug Use History: None Reported - Past Family History Father History Unknown: Yes Additional Family Medical History / Comment(s): from aneurysm 5 years after Mother History Unknown: Yes Additional Family Medical History / Comment(s): from aneurysm and cancer at age 58 General Exam - General Exam Comments Initial Comments: This is a 32 female. No distress. Limitations: no limitations General appearance: alert, in no apparent distress Head exam: Present: atraumatic, normocephalic, normal inspection Eye exam: Present: normal appearance, PERRL, EOMI. Absent: scleral icterus, conjunctival injection, periorbital swelling ENT exam: Present: normal exam, mucous membranes moist Neck exam: Present: normal inspection. Absent: tenderness, meningismus, lymphadenopathy Respiratory exam: Present: normal lung sounds bilaterally. Absent: respiratory distress, wheezes, rales, rhonchi, stridor Cardiovascular Exam: Present: regular rate, normal rhythm, normal heart sounds. Absent: systolic murmur, diastolic murmur, rubs, gallop, clicks GI/Abdominal exam: Present: soft, tenderness (suprapubic tenderness), normal bowel sounds. Absent: distended, guarding, rebound, rigid Extremities exam: Present: normal inspection, full ROM, normal capillary refill. Absent: tenderness, pedal edema, joint swelling, calf tenderness Back exam: Present: normal inspection, CVA tenderness (L) Neurological exam: Present: alert, oriented X3, CN II-XII intact Psychiatric exam: Present: normal affect, normal mood Skin exam: Present: warm, dry, intact, normal color. Absent: rash Course Vital Signs 03/10/17 03/10/17 12:56 14:48 Temperature 97.0 F L 98.4 F Pulse Rate 98 78 Respiratory 18 18 Rate Blood Pressure 134/91 117/60 O2 Sat by Pulse 100 100 Oximetry Medical Decision Making - Medical Decision Making This is a 32 year old femael with 3 days dysuria, and left back pain. Urinalysis is positive for UTI. Culture obtained. She ahs minimal suprapubic tenderness and Left flank pain. No RBC in urinalysis. Patient CBC and CMP within normal limits. Patient is allergic to multiple antibiotics and pain medication. She appears in no acute distress, mentions multiple times that "Dilaudid is the only thing that cures pain". Discussed will not dispense dilaudid for UTI. Discussed that patient clinically appears well. Previous urine cultures are positive for ecoli. Patient started on macrobid due to allergy and sensitivity. Discussed follow up with PCP and urolgoy as to frequency of UTI and return parameters discussed. - Lab Data Result diagrams: 03/10/17 13:36 03/10/17 13:36 Lab Results 03/10/17 03/10/17 03/10/17 Range/Units 13:10 13:36 13:36 WBC 7.2 (3.8-10.6) k/uL RBC 4.39 (3.80-5.40) m/uL Hgb 12.5 (11.4-16.0) gm/dL Hct 38.2 (34.0-46.0) % MCV 87.1 (80.0-100.0) fL MCH 28.6 (25.0-35.0) pg MCHC 32.8 (31.0-37.0) g/dL RDW 13.9 (11.5-15.5) % Plt Count 263 (150-450) k/uL Neutrophils % 74 % Lymphocytes % 17 % Monocytes % 4 % Eosinophils % 4 % Basophils % 0 % Neutrophils # 5.4 (1.3-7.7) k/uL Lymphocytes # 1.2 (1.0-4.8) k/uL Monocytes # 0.3 (0-1.0) k/uL Eosinophils # 0.3 (0-0.7) k/uL Basophils # 0.0 (0-0.2) k/uL Sodium 142 (137-145) mmol/L Potassium 4.3 (3.5-5.1) mmol/L Chloride 102 (98-107) mmol/L Carbon Dioxide 29 (22-30) mmol/L Anion Gap 11 mmol/L BUN 10 (7-17) mg/dL Creatinine 0.64 (0.52-1.04) mg/dL Est GFR (MDRD) Af Amer >60 (>60 ml/min/1.73 sqM) Est GFR (MDRD) Non-Af >60 (>60 ml/min/1.73 sqM) Glucose 102 H (74-99) mg/dL Calcium 9.6 (8.4-10.2) mg/dL Total Bilirubin 0.6 (0.2-1.3) mg/dL AST 34 (14-36) U/L ALT 51 (9-52) U/L Alkaline Phosphatase 77 (38-126) U/L Total Protein 7.9 (6.3-8.2) g/dL Albumin 4.4 (3.5-5.0) g/dL Urine Color Yellow Urine Appearance Cloudy H (Clear) Urine pH 7.0 (5.0-8.0) Ur Specific [place] 1.010 (1.001-1.035) Urine Protein Negative (Negative) Urine Glucose (UA) Negative (Negative) Urine Ketones Negative (Negative) Urine Blood Negative (Negative) Urine Nitrite Negative (Negative) Urine Bilirubin Negative (Negative) Urine Urobilinogen <2.0 (<2.0) mg/dL Ur Leukocyte Esterase Moderate H (Negative) Urine RBC 2 (0-5) /hpf Urine WBC 55 H (0-5) /hpf Ur Squamous Epith Cells 15 H (0-4) /hpf Urine Bacteria Many H (None) /hpf Urine Mucus Rare H (None) /hpf Disposition Clinical Impression: UTI (urinary tract infection) Disposition: HOME SELF-CARE Condition: Good Instructions: Urinary Tract Infection in Women (ED) Additional Instructions: Follow-up with primary care provider. Recommend also following up with urology in regards to right getting some urinary tract infections. Patient should increase her fluid intake. Return to emergency department if any alarming signs or symptoms occur. Prescriptions: Nitrofurantoin Monohyd/M-Cryst [Macrobid] 100 mg PO Q12HR #14 cap Referrals: Aldair Bowen MD [Primary Care Provider] - 1-2 days Time of Disposition: 14:37
[2017-03-10 13:52] LABS: Albumin 4.4 g/dL (3.5-5.0); Anion Gap 11 mmol/L; Calcium 9.6 mg/dL (8.4-10.2); Carbon Dioxide 29 mmol/L (22-30); Chloride 102 mmol/L (98-107); Glucose 102 mg/dL (74-99); Sodium 142 mmol/L (137-145); Total Bilirubin 0.6 mg/dL (0.2-1.3); Total Protein 7.9 g/dL (6.3-8.2)
[2017-03-10 13:53] LABS: ALT 51 U/L (9-52); AST 34 U/L (14-36); Alkaline Phosphatase 77 U/L (38-126); Blood Urea Nitrogen 10 mg/dL (7-17); Potassium 4.3 mmol/L (3.5-5.1)
[2017-03-10 13:59] LABS: Basophils % (A) 0 %; Eosinophils # (A) 0.3 k/uL (0-0.7); Eosinophils % (A) 4 %; HCT 38.2 % (34.0-46.0); HGB 12.5 gm/dL (11.4-16.0); Lymphocytes # (A) 1.2 k/uL (1.0-4.8); Lymphocytes % (A) 17 %; MCH 28.6 pg (25.0-35.0); MCHC 32.8 g/dL (31.0-37.0); MCV 87.1 fL (80.0-100.0); Mean Platelet Volume 7.3; Monocytes # (A) 0.3 k/uL (0-1.0); Monocytes % (A) 4 %; Neutrophils # (A) 5.4 k/uL (1.3-7.7); Neutrophils % (A) 74 %; Platelet Count 263 k/uL (150-450); RBC 4.39 m/uL (3.80-5.40); RDW 13.9 % (11.5-15.5); WBC 7.2 k/uL (3.8-10.6)
[2017-03-10 14:49] VITALS: BP 117/60; PULSE 78; TEMP 98.4
== END 2017-03-10 14:51 | disposition home or self-care (01) ==
LOC: EC 12:34
DX: N39.0 Urinary tract infection, site not specified (principal); Z86.14 Personal history of Methicillin resistant Staphylococcus aureus infection; Z90.49 Acquired absence of other specified parts of digestive tract; Z79.891 Long term (current) use of opiate analgesic; Z79.899 Other long term (current) drug therapy; Z88.6 Allergy status to analgesic agent; Z88.1 Allergy status to other antibiotic agents; Z88.5 Allergy status to narcotic agent; Z88.0 Allergy status to penicillin; Z91.018 Allergy to other foods
CPT/HCPCS: 36415; 80053; 85025; 81001; 99284; 96374; 96375; 96361; J0696; J1885

== ENCOUNTER 2017-10-04 21:50 | Inpatient (IN) | payer MEDICARE, OTHER ==
[2017-10-04 23:41] LABS: Appearance,Urine Cloudy (Clear); Bacteria,Urine Rare /hpf; Bilirubin,Urine Negative (Negative); Blood,Urine Small (Negative); Color,Urine Yellow; Glucose,Urine (UA) Negative (Negative); Ketones,Urine Negative (Negative); Leukocyte Esterase,Urine Large (Negative); Mucus,Urine Rare /hpf; Nitrite,Urine Positive (Negative); PH, Urine 5.5 (5.0-8.0); Protein,Urine Trace (Negative); RBC,Urine 10 /hpf (0-5); Specific Gravity,Urine 1.014 (1.001-1.035); Squamous Epithelial Cell,Urine 3 /hpf (0-4); Urobilinogen,Urine <2.0 mg/dL (<2.0); WBC,Urine 140 /hpf (0-5)
[2017-10-05] MEDS ORDERED: cefTRIAXone IN SWFI 2,000 MG/20 ML SYRINGE IVP STA (00:03)
--- NOTE | 2017-10-05 00:06 | ED ---
General Adult HPI - General Source: patient, RN notes reviewed Mode of arrival: ambulatory Limitations: no limitations <Maximilian Motta - Last Filed: 10/05/17 02:20> <Michael Garcia - Last Filed: 10/08/17 11:33> - General Chief complaint: Back Pain/Injury Stated complaint: Abd/Back Pain Time Seen by Provider: 10/04/17 23:39 - History of Present Illness Initial comments: 32-year-old female with a chief complaint of back pain and urinary symptoms signs 3 days. Patient states she has been having pain with urination for about 3 days. Patient states she also has back pain bilaterally. Patient has also vomited twice. Patient states she has felt like she has chills at home but has not checked her temperature. Patient admits to minimal abdominal pain. Patient has had normal bowel movements. Patient has no other complaints at this time including shortness of breath, chest pain, abdominal pain, nausea or vomiting, headache, or visual changes. (Maximilian Motta) - Related Data Home Medications Medication Instructions Recorded Confirmed HYDROcodone/APAP 10-325MG [[place] 1 tab PO QID 03/12/16 10/05/17 10-325] Gabapentin [Neurontin] 800 mg PO TID 08/12/16 10/05/17 Cyclobenzaprine [Flexeril] 10 mg PO DAILY PRN 03/10/17 10/05/17 Ibuprofen [Motrin] 800 mg PO Q6H PRN 10/05/17 10/05/17 Previous Rx's Medication Instructions Recorded Cefuroxime Axetil [Ceftin] 500 mg PO BID #20 tab 10/07/17 Allergies Allergy/AdvReac Type Severity Reaction Status Date / Time ketorolac tromethamine Allergy Rash/Hives Verified 10/05/17 12:17 [From Toradol] levofloxacin [From Levaquin] Allergy Rash/Hives Verified 10/05/17 12:17 morphine Allergy Rash/Hives Verified 10/05/17 12:17 Penicillins Allergy Rash/Hives Verified 10/05/17 12:17 propoxyphene napsylate Allergy Rash/Hives Verified 10/05/17 12:17 [From Darvocet-N 100] tramadol Allergy Rash/Hives Verified 10/05/17 12:17 aspirin AdvReac Nausea & Verified 10/05/17 12:17 Vomiting tomato AdvReac Unknown Verified 10/05/17 12:17 Review of Systems ROS Other: All systems not noted in ROS Statement are negative. <Maximilian Motta Iesha - Last Filed: 10/05/17 02:20> ROS Other: All systems not noted in ROS Statement are negative. <Michael Garcia - Last Filed: 10/08/17 11:33> ROS Statement: Those systems with pertinent positive or pertinent negative responses have been documented in the HPI. Past Medical History Past Medical History: CVA/TIA Additional Past Medical History / Comment(s): pyelonephritis, ADD, chronic back pain, MS, factor 12 deficiency, abdominal pain, vomiting History of Any Multi-Drug Resistant Organisms: ESBL, MRSA Date of last positivie culture/infection: 01/14/15-ESBL E.coli; 10/29/05-MRSA MDRO Source:: ESBL Urine; MRSA Unknown Past Surgical History: Section, Cholecystectomy, Hysterectomy, Joint Replacement Additional Past Surgical History / Comment(s): Left knee replacement, Past Anesthesia/Blood Transfusion Reactions: No Reported Reaction Past Psychological History: ADD/ADHD, Anxiety Smoking Status: Never smoker Past Alcohol Use History: None Reported Past Drug Use History: None Reported - Past Family History Father History Unknown: Yes Additional Family Medical History / Comment(s): from aneurysm 5 years after Mother History Unknown: Yes Additional Family Medical History / Comment(s): from aneurysm and cancer at age 58 <Maximilian Motta P - Last Filed: 10/05/17 02:20> General Exam Limitations: no limitations General appearance: alert, in no apparent distress Head exam: Present: atraumatic, normocephalic, normal inspection Eye exam: Present: normal appearance. Absent: scleral icterus, conjunctival injection ENT exam: Present: normal exam, mucous membranes moist Neck exam: Present: normal inspection, full ROM. Absent: tenderness, meningismus, lymphadenopathy Respiratory exam: Present: normal lung sounds bilaterally. Absent: respiratory distress, wheezes, rales, rhonchi, stridor Cardiovascular Exam: Present: regular rate, normal rhythm, normal heart sounds. Absent: systolic murmur, diastolic murmur, rubs, gallop, clicks GI/Abdominal exam: Present: soft, tenderness (minimal lower abdominal tenderness ), normal bowel sounds. Absent: distended, guarding, rebound, rigid Back exam: Present: CVA tenderness (R), CVA tenderness (L) Neurological exam: Present: alert, oriented X3, CN II-XII intact Psychiatric exam: Present: normal affect, normal mood Skin exam: Present: warm, dry, intact, normal color. Absent: rash <Maximilian Motta - Last Filed: 10/05/17 02:20> Vital Signs 10/04/17 10/05/17 22:26 02:51 Temperature 98.3 F 97.6 F Pulse Rate 93 81 Respiratory 20 18 Rate Blood Pressure 144/75 147/77 O2 Sat by Pulse 100 97 Oximetry Medical Decision Making - Lab Data Result diagrams: 10/04/17 23:40 10/04/17 23:40 <Maximilian Motta - Last Filed: 10/05/17 02:20> - Lab Data Result diagrams: 10/04/17 23:40 10/04/17 23:40 <Michael Garcia - Last Filed: 10/08/17 11:33> - Medical Decision Making 32-year-old female presents to the emergency department for a chief complaint of urinary symptoms and back pain 3 days. Patient's states she thinks she has a kidney infection. No fevers at home but patient states she is has felt like she has chills. Patient is afebrile in the emergency department. On exam patient has minimal left lower quadrant tenderness. Positive left CVA tenderness. Temperature 98.3 pulse rate 93. 100% on room air. CBC CMP unremarkable. White count 9.4. Lactic 1.2 Urine does show positive nitrites with large leukocyte esterase and 140 white cells. Patient given Rocephin in the emergency department and urine and blood cultures drawn. Patient still complaining of pain in the emergency department. She will be admitted for IV antibiotics. (Maximilian Motta) I saw this patient in conjunction with the physician planning assistant. I performed independent history and physical exam. Agree with case management. (Michael Garcia) - Lab Data Lab Results 10/04/17 10/04/17 10/04/17 Range/Units 23:30 23:40 23:40 WBC 9.4 (3.8-10.6) k/uL RBC 3.96 (3.80-5.40) m/uL Hgb 11.5 (11.4-16.0) gm/dL Hct 35.0 (34.0-46.0) % MCV 88.2 (80.0-100.0) fL MCH 29.1 (25.0-35.0) pg MCHC 33.0 (31.0-37.0) g/dL RDW 13.3 (11.5-15.5) % Plt Count 257 (150-450) k/uL Neutrophils % 62 % Lymphocytes % 28 % Monocytes % 5 % Eosinophils % 2 % Basophils % 0 % Neutrophils # 5.8 (1.3-7.7) k/uL Lymphocytes # 2.6 (1.0-4.8) k/uL Monocytes # 0.5 (0-1.0) k/uL Eosinophils # 0.2 (0-0.7) k/uL Basophils # 0.0 (0-0.2) k/uL Sodium 141 (137-145) mmol/L Potassium 3.9 (3.5-5.1) mmol/L Chloride 106 (98-107) mmol/L Carbon Dioxide 27 (22-30) mmol/L Anion Gap 8 mmol/L BUN 13 (7-17) mg/dL Creatinine 0.60 (0.52-1.04) mg/dL Est GFR (CKD-EPI)AfAm >90 (>60 ml/min/1.73 sqM) Est GFR (CKD-EPI)NonAf >90 (>60 ml/min/1.73 sqM) Glucose 84 (74-99) mg/dL Plasma Lactic Acid Julio (0.7-2.0) mmol/L Calcium 8.9 (8.4-10.2) mg/dL Total Bilirubin 0.4 (0.2-1.3) mg/dL AST 20 (14-36) U/L ALT 30 (9-52) U/L Alkaline Phosphatase 75 (38-126) U/L Total Protein 7.2 (6.3-8.2) g/dL Albumin 4.2 (3.5-5.0) g/dL Urine Color Yellow Urine Appearance Cloudy H (Clear) Urine pH 5.5 (5.0-8.0) Ur Specific [place] 1.014 (1.001-1.035) Urine Protein Trace H (Negative) Urine Glucose (UA) Negative (Negative) Urine Ketones Negative (Negative) Urine Blood Small H (Negative) Urine Nitrite Positive H (Negative) Urine Bilirubin Negative (Negative) Urine Urobilinogen <2.0 (<2.0) mg/dL Ur Leukocyte Esterase Large H (Negative) Urine RBC 10 H (0-5) /hpf Urine WBC 140 H (0-5) /hpf Urine WBC Clumps Few H (None) /hpf Ur Squamous Epith Cells 3 (0-4) /hpf Urine Bacteria Rare H (None) /hpf Urine Mucus Rare H (None) /hpf 10/04/17 Range/Units 23:40 WBC (3.8-10.6) k/uL RBC (3.80-5.40) m/uL Hgb (11.4-16.0) gm/dL Hct (34.0-46.0) % MCV (80.0-100.0) fL MCH (25.0-35.0) pg MCHC (31.0-37.0) g/dL RDW (11.5-15.5) % Plt Count (150-450) k/uL Neutrophils % % Lymphocytes % % Monocytes % % Eosinophils % % Basophils % % Neutrophils # (1.3-7.7) k/uL Lymphocytes # (1.0-4.8) k/uL Monocytes # (0-1.0) k/uL Eosinophils # (0-0.7) k/uL Basophils # (0-0.2) k/uL Sodium (137-145) mmol/L Potassium (3.5-5.1) mmol/L Chloride (98-107) mmol/L Carbon Dioxide (22-30) mmol/L Anion Gap mmol/L BUN (7-17) mg/dL Creatinine (0.52-1.04) mg/dL Est GFR (CKD-EPI)AfAm (>60 ml/min/1.73 sqM) Est GFR (CKD-EPI)NonAf (>60 ml/min/1.73 sqM) Glucose (74-99) mg/dL Plasma Lactic Acid Julio 1.2 (0.7-2.0) mmol/L Calcium (8.4-10.2) mg/dL Total Bilirubin (0.2-1.3) mg/dL AST (14-36) U/L ALT (9-52) U/L Alkaline Phosphatase (38-126) U/L Total Protein (6.3-8.2) g/dL Albumin (3.5-5.0) g/dL Urine Color Urine Appearance (Clear) Urine pH (5.0-8.0) Ur Specific [place] (1.001-1.035) Urine Protein (Negative) Urine Glucose (UA) (Negative) Urine Ketones (Negative) Urine Blood (Negative) Urine Nitrite (Negative) Urine Bilirubin (Negative) Urine Urobilinogen (<2.0) mg/dL Ur Leukocyte Esterase (Negative) Urine RBC (0-5) /hpf Urine WBC (0-5) /hpf Urine WBC Clumps (None) /hpf Ur Squamous Epith Cells (0-4) /hpf Urine Bacteria (None) /hpf Urine Mucus (None) /hpf Disposition Is patient prescribed a controlled substance at d/c from ED?: No Time of Disposition: 02:20 <Maximilian Motta - Last Filed: 10/05/17 02:20> <Michael Garcia - Last Filed: 10/08/17 11:33> Clinical Impression: Pyelonephritis Disposition: ADMITTED IP TO THIS HOSP Condition: Good
[2017-10-05 00:29] LABS: Basophils % (A) 0 %; Eosinophils # (A) 0.2 k/uL (0-0.7); Eosinophils % (A) 2 %; HGB 11.5 gm/dL (11.4-16.0); Lymphocytes # (A) 2.6 k/uL (1.0-4.8); Lymphocytes % (A) 28 %; MCH 29.1 pg (25.0-35.0); MCV 88.2 fL (80.0-100.0); Mean Platelet Volume 6.7; Monocytes # (A) 0.5 k/uL (0-1.0); Monocytes % (A) 5 %; Neutrophils # (A) 5.8 k/uL (1.3-7.7); Neutrophils % (A) 62 %; Platelet Count 257 k/uL (150-450); RBC 3.96 m/uL (3.80-5.40); RDW 13.3 % (11.5-15.5); WBC 9.4 k/uL (3.8-10.6)
[2017-10-05 00:35] LABS: ALT 30 U/L (9-52); AST 20 U/L (14-36); Albumin 4.2 g/dL (3.5-5.0); Alkaline Phosphatase 75 U/L (38-126); Anion Gap 8 mmol/L; Blood Urea Nitrogen 13 mg/dL (7-17); Calcium 8.9 mg/dL (8.4-10.2); Carbon Dioxide 27 mmol/L (22-30); Chloride 106 mmol/L (98-107); Glucose 84 mg/dL (74-99); Potassium 3.9 mmol/L (3.5-5.1); Sodium 141 mmol/L (137-145); Total Bilirubin 0.4 mg/dL (0.2-1.3); Total Protein 7.2 g/dL (6.3-8.2)
[2017-10-05] MEDS ORDERED: ACETAMINOPHEN TAB 325 MG TAB PO PRN (02:16)
[2017-10-05] MEDS ORDERED: ONDANSETRON 4 MG/2 ML VIAL IVP PRN (02:16)
[2017-10-05] MEDS ORDERED: NALOXONE 0.4 MG/ML 1 ML VIAL IV PRN (02:16)
[2017-10-05] MEDS ORDERED: HYDROmorphone 1 MG/ML 1 ML SYRINGE IVP PRN (02:19)
[2017-10-05] MEDS: SODIUM CHLORIDE 0.9% 1,000 ML IV SCH ×3 (02:52→19:44)
[2017-10-05] MEDS ORDERED: CYCLOBENZAPRINE 10 MG TAB PO PRN (03:22)
[2017-10-05] MEDS: IBUPROFEN 800 MG TAB PO SCH ×3 (06:56→17:23)
[2017-10-05] MEDS: GABAPENTIN 400 MG CAP PO SCH ×3 (09:09→21:29)
[2017-10-05] MEDS: HYDROcodone/APAP 10-325MG 1 EACH TAB PO PRN ×2 (09:12→21:30)
[2017-10-05] MEDS: HYDROmorphone 1 MG/ML 1 ML SYRINGE IVP PRN ×2 (11:14→15:35)
--- NOTE | 2017-10-05 12:24 | HP ---
HISTORY AND PHYSICAL CHIEF COMPLAINT: A 32-year-old white female with lower back and urinary symptoms for the past 3 days. She has been having pain with urination for the past 3 days, back pain bilaterally. Vomited twice. Chills at home. Checked her temperature. She had minimal abdominal pain. Normal bowel movements. No other complaints, shortness of breath, chest pain, headache, nausea, vomiting, or vision changes. HOME MEDICATIONS: [place], Neurontin, Flexeril, Motrin, Macrobid. ALLERGIES: TORADOL, LEVAQUIN, MORPHINE, PENICILLIN, DARVOCET, TRAMADOL, ASPIRIN AND TOMATOES. REVIEW OF SYSTEMS: Fourteen point review of systems negative except for the flank pain, back pain, and on the left side. PAST MEDICAL HISTORY: CVA TIA and pyelonephritis. ADD, multiple sclerosis, factor 12 deficiency, abdominal pain, vomiting, ESBL, MRSA. SURGICAL HISTORY: , cholecystectomy, hysterectomy, joint replacement, left knee replacement. She is a nonsmoker. No alcohol. No illicit drugs. FAMILY HISTORY: Father 5 years after his , mother aneurysm also age 58. PHYSICAL EXAMINATION: Temp 98.3, pulse 90 to 93, respiration 18 to 20, blood pressure 140s over 70s. Lungs are clear. Endocrine BMI is over 50. HEENT: She wears glasses. Pupils equal, round, reactive. No thyromegaly on her neck exam. Lungs are clear. Cardiac regular rate and rhythm, S1, S2. Abdomen is soft, distended due to obesity. Back, no CVA tenderness on the right. CVA tenderness on the left. Cranial nerves are intact. Alert and oriented x3. SKIN: Warm, dry, and intact. Labs were reviewed. UA is reviewed. She has greater than 140 white cells in the urine, large leukocyte esterase, small blood, lactic acid 1.2. ASSESSMENT: 1. Acute pyelonephritis. 2. Acute abdominal pain secondary to pyelonephritis. 3. History of cerebrovascular accident, transient ischemic attack. 4. Chronic back pain. 5. Multiple sclerosis. 6. Factor 12 deficiency. Continue home medications. IV pain medicines per patient request. IV antibiotics. Consultation with Infectious Disease. MMODL / IJN: [id number] /
--- NOTE | 2017-10-05 19:30 | US ---
EXAMINATION TYPE: US abdomen complete DATE OF EXAM: 10/05/2017 COMPARISON: NONE CLINICAL HISTORY: abdominal pain. abd pain that moves EXAM MEASUREMENTS: Liver Length: 19.5 cm Gallbladder Wall: Surgically absent CBD: 0.7 cm Spleen: 13.4 cm Right Kidney: 10.7 x 5.2 x 4.6 cm Left Kidney: 11.6 x 5.0 x 4.8 cm Limited exam due to body habitus and bowel gas Pancreas: limited views appear wnl Liver: difficult to penetrate and enlarged Gallbladder: Surgically absent Evidence for sonographic Manuel's sign: no CBD: wnl Spleen: enlarged Right Kidney: wnl Left Kidney: Small simple appearing 1.7cm cystic area seen mid pole Upper IVC: wnl Abd Aorta: wnl IMPRESSION: 1. Left renal cyst
[2017-10-05] MEDS: HYDROmorphone 2 MG TAB PO PRN (19:45)
[2017-10-06] MEDS: IBUPROFEN 800 MG TAB PO SCH ×5 (00:29→23:15)
[2017-10-06] MEDS: HYDROmorphone 2 MG TAB PO PRN ×2 (00:35→23:16)
[2017-10-06] MEDS: SODIUM CHLORIDE 0.9% 1,000 ML IV SCH ×3 (03:13→21:29)
[2017-10-06] MEDS: HYDROcodone/APAP 10-325MG 1 EACH TAB PO PRN ×3 (04:53→21:28)
[2017-10-06] MEDS: HYDROmorphone 1 MG/ML 1 ML SYRINGE IVP PRN ×4 (06:46→19:33)
--- NOTE | 2017-10-06 07:19 | CONS ---
CONSULTATION DATE OF SERVICE: 10/05/2017. REASON FOR CONSULTATION: Urinary tract infection and pyelonephritis. HISTORY OF PRESENT ILLNESS: The patient is a 32-year-old female who presented to the ER at [facility] early this morning with chief complaints of a pain in her left flank area and urinary symptoms, her symptoms have been going on for about 3 days prior to presentation to hospital. Patient complaining of burning and pain on urination and pain in the left flank area. The pain is more of a dull aching pain with almost 7 to 8/10, and no radiation. The patient has felt nauseated but no vomiting and no diarrhea. With these symptoms, the patient has been evaluated by the ER physician. On arrival to the ER, the patient did not have any high-grade fever. Her white count was normal. Her urine was significantly positive with large leukocyte esterase, more than 140 WBC and bacteria. The patient has been admitted to the hospital. Infectious Disease was consulted for further recommendation regarding antibiotic therapy. REVIEW OF SYSTEMS: Constitutional: Positive for weakness and a fever at home. Eyes no complaint. ENT no complaint. Respiratory no complaint. Cardiovascular no complaint. Genitourinary as per HPI. Gastrointestinal: No complaint. Musculoskeletal no complaint. Integumentary: No complaint. Psychological no complaint. Endocrine no complaint. Neurologic no complaint. PAST MEDICAL HISTORY: Significant for a pyelonephritis, ADHD, chronic back pain, MS, CVA, TIA, previous history of ESBL, MRSA in the urine. PAST SURGICAL HISTORY: , cholecystectomy hysterectomy, left knee replacement. SOCIAL HISTORY: Denies smoking, drinking or drug use. FAMILY HISTORY: Father from aneurysm. Mother with history of aneurysm and cancer. ALLERGIES: TO MULTIPLE MEDICATIONS INCLUDING LEVOFLOXACIN, MORPHINE, PENICILLIN, TRAMADOL. MEDICATIONS: The patient is currently on Tylenol, [place], Rocephin Flexeril, Neurontin, Dilaudid, Motrin, Narcan, Zofran. EXAMINATION: Blood pressure is 134/63 with a pulse of 72, temperature 97.2. She is 99% on room air. General description is a middle aged female lying in bed in no distress. No tachypnea or accessory muscles of respiration use. HEENT: Shows no pallor or scleral icterus. Oral mucosa membranes dry. No pharyngeal erythema or thrush. Neck trachea central. No thyromegaly. Lungs unlabored breathing. Clear to auscultation anteriorly. No wheeze or crackle. Heart S1, S2. Regular rate and rhythm. ABDOMEN: Soft, no tenderness. No guarding. No rigidity. EXTREMITIES: No edema of feet. Skin examination: No rash or mass palpable. Neurological: Patient is awake, alert, oriented times three. Mood and affect normal. LABS: Hemoglobin 11.5, white count 9.4, BUN of 13, creatinine 0.70. Electrolytes have been normal. Liver enzymes are normal. Urine has been positive with large leukocyte esterase, more than 140 WBC. DIAGNOSTIC IMPRESSION: The patient admitted to the hospital with burning and frequency of urine. The patient did have pain in the left flank area and a fever at home had concern likely for left- sided pyelonephritis likely from enteric gram-negative pathogen. PLAN: 1. Rocephin 1 g IV piggyback daily. 2. Check an ultrasound of the kidney/bladder area to rule out any infectious abnormality. 3. We will follow up on clinical condition and culture to further adjust medication if needed. Thank you for this consultation. We will follow the patient along with you. MMODL / IJN: [id number] /
[2017-10-06] MEDS: cefTRIAXone IN SWFI 1,000 MG/10 ML SYRINGE IVP SCH (07:33)
[2017-10-06] MEDS: GABAPENTIN 400 MG CAP PO SCH ×3 (07:33→21:29)
--- NOTE | 2017-10-06 21:49 | PN ---
PROGRESS NOTE The patient remains on IV Rocephin for UTI and urosepsis. She had ultrasound of the abdomen shows tiny cyst. No significant stones or obstruction. The patient is improving from medical standpoint. Gram-negative bacilli seen. Urine culture, blood cultures negative. Awaiting for sensitivity. Patient remains on IV antibiotics. CBC Chem panel essentially normal. Vital signs: T-max 98.7, pulse 75, respiratory 18, blood pressure 115 to 134 over 70s to 80s. CARDIOVASCULAR: S1, S2. GI: Some mild tenderness in the left flank. Hematology negative Hom[place]. ASSESSMENT: 1. Urosepsis. 2. Urinary tract infection. Remain on broad-spectrum IV antibiotics. Ultrasound shows a tiny cyst on the ovary. Continue current treatment. Follow up next 24-48 hours for discharge. MMODL / IJN: [id number] /
--- NOTE | 2017-10-07 00:04 | PN ---
PROGRESS NOTE DATE OF SERVICE: 10/06/2017. REASON FOR FOLLOWUP: Left-sided pyelonephritis. INTERVAL HISTORY: The patient is afebrile. She is complaining of pain to the left leg area. Erythema is slightly improved, but denies any chest pain or shortness of breath or cough. No abdominal pain, no diarrhea. EXAMINATION: Blood pressure 162/80 with a pulse of 75, temperature 98.7, he is 98% on room air. GENERAL DESCRIPTION: The patient is a middle-aged female lying in bed in no distress. RESPIRATORY SYSTEMS: Unlabored breathing. Clear to auscultation anteriorly. HEART: S1, S2. Regular rate and rhythm. ABDOMEN: Soft, no tenderness. LABS: Hemoglobin is 11.5, white count 9.4, BUN of 13, creatinine 0.60. Urine gram-negative. Blood culture so far pending. DIAGNOSTIC IMPRESSION AND PLAN: Patient admitted to the hospital with left-sided pyelonephritis. Urine is currently showing gram-negative. The patient is on Rocephin, that will be continued waiting for the ID service. Continue supportive care. MMODL / IJN: [id number] /
[2017-10-07] MEDS: HYDROcodone/APAP 10-325MG 1 EACH TAB PO PRN ×3 (03:51→20:20)
[2017-10-07] MEDS: IBUPROFEN 800 MG TAB PO SCH ×3 (05:51→17:11)
[2017-10-07] MEDS: HYDROmorphone 2 MG TAB PO PRN ×5 (05:52→22:57)
[2017-10-07] MEDS: SODIUM CHLORIDE 0.9% 1,000 ML IV SCH ×3 (05:52→22:57)
[2017-10-07] MEDS: GABAPENTIN 400 MG CAP PO SCH ×3 (07:40→20:21)
[2017-10-07] MEDS: cefTRIAXone IN SWFI 1,000 MG/10 ML SYRINGE IVP SCH (07:40)
--- NOTE | 2017-10-07 12:23 | PN ---
PROGRESS NOTE DATE OF SERVICE: 10/07/2017. REASON FOR FOLLOW UP: A left-sided pyelonephritis, UTI. INTERVAL HISTORY: The patient is currently afebrile. She is breathing comfortably. Still complains of pain in the left flank area, some nausea but no vomiting. Did have slight diarrhea but overall urinary symptoms have improved. EXAMINATION: Blood pressure 136/68 with a pulse of 55. Temperature 97. She is 99% on room air. General description is a middle-aged female lying in bed in no distress. RESPIRATORY SYSTEM: Unlabored breathing. Clear to auscultation anteriorly. HEART: S1, S2. Regular rate and rhythm. ABDOMEN: Soft, no tenderness. LABS: White count 9.4. Urine finalized with an E coli that is sensitive pathogen. DIAGNOSTIC IMPRESSION AND PLAN: Patient with Escherichia coli urinary tract infection, possible left-sided pyelonephritis. The patient did have overall improvement in her clinical symptoms. This is a sensitive pathogen; however, the patient does have multiple antibiotic allergy. She will be given a script for Ceftin 500 mg b.i.d. for 10 days to finish a course of therapy. Continue supportive care. MMODL / IJN: [id number] /
--- NOTE | 2017-10-07 22:11 | PN ---
PROGRESS NOTE SUBJECTIVE: 32-year-old with UTI, pyelonephritis, complaining of left flank pain. Discussed with her possibly a muscle relaxer being given for this. Cardiovascular S1-S2. Lungs are clear. GI shows tender to palpation left flank and suprapubic. ASSESSMENT: 1. Urinary tract infection. 2. Pyelonephritis. 3. Left abdominal pain. Continue with Flexeril for muscle relaxer and continue on broad-spectrum antibiotics. MMODL / IJN: [id number] /
[2017-10-08] MEDS: IBUPROFEN 800 MG TAB PO SCH ×5 (01:13→23:20)
[2017-10-08] MEDS: HYDROmorphone 2 MG TAB PO PRN ×5 (03:51→20:32)
[2017-10-08] MEDS: HYDROcodone/APAP 10-325MG 1 EACH TAB PO PRN ×3 (06:08→21:12)
[2017-10-08] MEDS: SODIUM CHLORIDE 0.9% 1,000 ML IV SCH ×3 (06:25→21:11)
[2017-10-08] MEDS: GABAPENTIN 400 MG CAP PO SCH ×3 (08:10→21:12)
[2017-10-08] MEDS: cefTRIAXone IN SWFI 1,000 MG/10 ML SYRINGE IVP SCH (08:11)
[2017-10-08] MEDS ORDERED: IOPAMIDOL-300 CONTRAST 30 ML VIAL (ORAL USE) PO PRN (09:51)
[2017-10-08] MEDS: IOPAMIDOL-300 CONTRAST 30 ML VIAL (ORAL USE) PO PRN ×2 (11:28→13:04)
--- NOTE | 2017-10-08 14:53 | PN ---
PROGRESS NOTE DATE OF SERVICE: 10/08/2017. REASON FOR FOLLOWUP VISIT: Left-sided pyelonephritis. INTERVAL HISTORY: The patient is currently afebrile. She is breathing comfortably. Denies significant chest pain. No cough. Pain to the left leg has improved. No nausea, vomiting. No diarrhea. EXAMINATION: Blood pressure 145/70 with a pulse of 81. Temperature is 97.6. She is 98% on room air. General description is a middle-aged female lying in bed in no distress. RESPIRATORY SYSTEM: Unlabored breathing. Clear to auscultation anteriorly. HEART: S1, S2. Regular rate and rhythm. ABDOMEN: Soft, no tenderness. LABS: Hemoglobin 11.5, white count 9.4, BUN of 13, creatinine 0.60. DIAGNOSTIC IMPRESSION AND PLAN: Patient with Escherichia coli right-sided pyelonephritis, currently on Rocephin. Plan to finish therapy with oral Ceftin. Continue supportive care. MMODL / IJN: [id number] /
--- NOTE | 2017-10-08 15:14 | CT ---
EXAMINATION TYPE: CT abdomen pelvis w con DATE OF EXAM: 10/08/2017 COMPARISON: Prior CT abdomen pelvis 02/16/2017 HISTORY: Lt flank pain CT DLP: 2245.5 mGycm Automated exposure control for dose reduction was used. TECHNIQUE: Helical acquisition of images from the lung bases through the pelvis have been completed. CONTRAST: Performed with Oral Contrast and with IV Contrast, patient injected with 100 mL of Isovue 300. FINDINGS: LUNG BASES: No significant abnormality is appreciated. AORTA: No significant abnormality is appreciated. LIVER/GB: Patient is post cholecystectomy. Liver shows no mass. Liver is enlarged. PANCREAS: No significant abnormality is seen. SPLEEN: Enlarged ADRENALS: No significant abnormality is seen. KIDNEYS: Stable, caliectasis with scarring the upper pole the right kidney, parapelvic cyst within th e left kidney are again noted, the cyst in the right kidney is not simple cystic, Hounsfield units me asure approximately 30. REPRODUCTIVE ORGANS: No interval change, uterus and ovaries are not visualized. BOWEL: No significant abnormality is seen. FREE AIR: No Free Air visible. ASCITES: None visible. PELVIC ADENOPATHY: None visualized. RETROPERITONEAL ADENOPATHY: No Retroperitoneal Adenopathy visible. URINARY BLADDER: No significant abnormality is seen. OSSEOUS STRUCTURES: No significant abnormality is seen. IMPRESSION: CYSTS WITHIN THE LEFT KIDNEY IS NOT SIMPLE CYSTIC BY CT CRITERIA. POSTOP CHANGES. ADDITIONAL FINDINGS ABOVE.
--- NOTE | 2017-10-09 00:06 | PN ---
PROGRESS NOTE . SUBJECTIVE: 32-year-old white female with UTI, pyelonephritis, left flank pain. We are going to do a CT scan of abdomen today to rule out any significant obstruction. Cardiovascular S1-S2. Lungs clear. GI distended due to obesity, left flank pain. ASSESSMENT: 1. Urinary tract infection. 2. Pyelonephritis. 3. Abdominal pain. CT scan of the abdomen will be done. Continue broad-spectrum antibiotics. MMODL / IJN: [id number] /
[2017-10-09] MEDS: HYDROmorphone 2 MG TAB PO PRN ×4 (01:41→13:35)
[2017-10-09] MEDS: IBUPROFEN 800 MG TAB PO SCH ×2 (05:25→12:58)
[2017-10-09] MEDS: SODIUM CHLORIDE 0.9% 1,000 ML IV SCH ×2 (05:26→16:09)
[2017-10-09] MEDS: GABAPENTIN 400 MG CAP PO SCH ×2 (07:42→15:06)
[2017-10-09] MEDS: cefTRIAXone IN SWFI 1,000 MG/10 ML SYRINGE IVP SCH (07:43)
[2017-10-09] MEDS: HYDROcodone/APAP 10-325MG 1 EACH TAB PO PRN ×2 (07:53→14:51)
--- NOTE | 2017-10-09 14:25 | PN ---
PROGRESS NOTE DATE OF SERVICE: 10/09/2017. REASON FOR FOLLOWUP: E coli urinary tract infection. INTERVAL HISTORY: The patient is afebrile. She is currently breathing comfortably. Denies any chest pain or shortness of breath or cough. has improved. No nausea, vomiting and no diarrhea. EXAMINATION: Blood pressure 126/69 with a pulse of 55. Temperature 97.5. She is 98% on room air. General description is a middle-aged female up in the bed in no distress. RESPIRATORY SYSTEM: Unlabored breathing. Clear to auscultation anteriorly. HEART: S1, S2. Regular rate and rhythm. ABDOMEN: Soft, no tenderness. EXTREMITIES: No edema of the feet. LABS: No new labs have been obtained today. The patient did have a CT of the abdomen and pelvis which shows a cyst within the left kidney, nonsimple. No other acute abnormality. DIAGNOSTIC IMPRESSION AND PLAN: Patient with E coli urinary tract infection, possible pyelonephritis, currently on Rocephin. Transition to oral Ceftin to finish course of therapy. Continue supportive care. MMODL / IJN: [id number] /
[2017-10-09 14:31] VITALS: BP 124/76; PULSE 86; RESP 18; TEMP 98
== END 2017-10-09 17:22 | disposition home or self-care (01) | DRG 690 ==
LOC: EC 21:50 → 4MS4W 10-05 03:52 → OBSVTOIN 10-07 18:01
PROVIDERS: ADMIT Family Medicine; ATTEND Family Medicine
DX: N10 Acute pyelonephritis (principal); D68.2 Hereditary deficiency of other clotting factors; B96.20 Unspecified Escherichia coli [E. coli] as the cause of diseases classified elsewhere; E66.9 Obesity, unspecified; F90.9 Attention-deficit hyperactivity disorder, unspecified type; G35 Multiple sclerosis; G89.29 Other chronic pain; Z86.19 Personal history of other infectious and parasitic diseases; Z86.73 Personal history of transient ischemic attack (TIA), and cerebral infarction without residual deficits; Z88.1 Allergy status to other antibiotic agents; Z90.710 Acquired absence of both cervix and uterus; Z96.652 Presence of left artificial knee joint; Z88.6 Allergy status to analgesic agent; Z88.5 Allergy status to narcotic agent; Z88.0 Allergy status to penicillin; M54.9 Dorsalgia, unspecified; Z79.2 Long term (current) use of antibiotics; Z79.891 Long term (current) use of opiate analgesic; Z79.899 Other long term (current) drug therapy; Z87.440 Personal history of urinary (tract) infections
CPT/HCPCS: 36415; 74177; 76700; 80053; 81001; 83605; 85025; 87040; 87077; 87086; 87186; 96374; 99284

== ENCOUNTER 2018-04-12 14:39 | Emergency (ER) | payer MEDICARE, OTHER ==
[2018-04-12] MEDS ORDERED: SODIUM CHLORIDE 0.9% 1,000 ML IV STA (15:43)
[2018-04-12] MEDS ORDERED: ONDANSETRON 4 MG/2 ML VIAL IVP STA (15:43)
[2018-04-12] MEDS ORDERED: HYDROmorphone 0.5 MG/0.5 ML SYRINGE IVP STA (15:43)
--- NOTE | 2018-04-12 15:47 | ED ---
Abdominal Pain HPI - General Chief Complaint: Abdominal Pain Stated Complaint: Abd pain Time Seen by Provider: 04/12/18 15:11 Source: patient Mode of arrival: ambulatory Limitations: no limitations - History of Present Illness Initial Comments: Patient is a 33-year-old female presenting for abdominal pain. Patient states it is located in the left side is been constant for one week. It is worse with movement and feels like it radiates to her back as well as her feet. The pain feels a sharp, crampy, achy, dull sensation associated with nausea but no vomiting. She has also had diarrhea but no fevers or chills. - Related Data Home Medications Medication Instructions Recorded Confirmed HYDROcodone/APAP 10-325MG [[place] 1 tab PO QID 03/12/16 10/05/17 10-325] Gabapentin [Neurontin] 800 mg PO TID 08/12/16 10/05/17 Cyclobenzaprine [Flexeril] 10 mg PO DAILY PRN 03/10/17 10/05/17 Ibuprofen [Motrin] 800 mg PO Q6H PRN 10/05/17 10/05/17 Previous Rx's Medication Instructions Recorded Cefuroxime Axetil [Ceftin] 500 mg PO BID #20 tab 10/07/17 Nitrofurantoin Monohyd/M-Cryst 100 mg PO Q12HR #20 cap 11/11/17 [Macrobid] Sulfamethox-Tmp 800-160Mg [Bactrim 1 tab PO Q12HR #28 tab 11/11/17 DS 800-160 mg] Allergies Allergy/AdvReac Type Severity Reaction Status Date / Time ketorolac tromethamine Allergy Rash/Hives Verified 04/12/18 14:49 [From Toradol] levofloxacin [From Levaquin] Allergy Rash/Hives Verified 04/12/18 14:49 morphine Allergy Rash/Hives Verified 04/12/18 14:49 Penicillins Allergy Rash/Hives Verified 04/12/18 14:49 propoxyphene napsylate Allergy Rash/Hives Verified 04/12/18 14:49 [From Darvocet-N 100] tramadol Allergy Rash/Hives Verified 04/12/18 14:49 aspirin AdvReac Nausea & Verified 04/12/18 14:49 Vomiting tomato AdvReac Unknown Verified 02/09/19 14:49 Review of Systems ROS Statement: Those systems with pertinent positive or pertinent negative responses have been documented in the HPI. Constitutional: Negative for chills, fatigue and fever. HENT: Negative for congestion. Respiratory: Negative for chest tightness, shortness of breath and wheezing. Negative for cough Cardiovascular: Negative for chest pain and palpitations. Gastrointestinal: Positive for abdominal pain. Negative for abdominal distention , vomiting. Positive for diarrhea nausea Genitourinary: Negative for dysuria. Musculoskeletal: Negative for back pain, neck pain and neck stiffness. Skin: Negative for color change. Neurological: Negative for dizziness, speech difficulty, weakness and light- headedness. Psychiatric/Behavioral: Negative for agitation and confusion. Negative for anxiety ROS Other: All systems not noted in ROS Statement are negative. Past Medical History Past Medical History: CVA/TIA Additional Past Medical History / Comment(s): pyelonephritis, ADD, chronic back pain, MS, factor 12 deficiency, abdominal pain, vomiting History of Any Multi-Drug Resistant Organisms: ESBL, MRSA Date of last positivie culture/infection: 01/14/15-ESBL E.coli; 10/29/05-MRSA MDRO Source:: ESBL Urine; MRSA armpit Past Surgical History: Section, Cholecystectomy, Hysterectomy, Joint Replacement Additional Past Surgical History / Comment(s): Left knee replacement, Past Anesthesia/Blood Transfusion Reactions: No Reported Reaction Past Psychological History: ADD/ADHD, Anxiety Smoking Status: Never smoker Past Alcohol Use History: None Reported Past Drug Use History: None Reported - Past Family History Father History Unknown: Yes Additional Family Medical History / Comment(s): from aneurysm 5 years after Mother History Unknown: Yes Additional Family Medical History / Comment(s): from aneurysm and cancer at age 58 General Exam - General Exam Comments Initial Comments: Constitutional: Pt appears well-developed and well-nourished. No distress. Head: Normocephalic and atraumatic. Eyes: Strabismus of the right eye noted Neck: Normal range of motion. Neck supple. Cardiovascular: Normal rate, regular rhythm, S1 normal, S2 normal and normal heart sounds. Exam reveals no gallop and no friction rub. No murmur heard. Pulmonary/Chest: Effort normal and breath sounds normal. No tachypnea and no bradypnea. No respiratory distress. No wheezes or rales noted. Abdominal: Soft. Bowel sounds are normal. Pt exhibits no shifting dullness, no distension, no pulsatile liver, no fluid wave, no abdominal bruit and no ascites. There is no rigidity, no rebound, no guarding, no tenderness at McBurney's point and negative Manuel's sign. There is mild tenderness in the suprapubic region Musculoskeletal: Normal range of motion. Neurological: Pt is alert and oriented to person, place, and time. No cranial nerve deficit. Skin: Skin is warm and dry. No rash noted. Pt is not diaphoretic. No erythema. No pallor. Psychiatric: Pt has a normal mood and affect. Pt behavior is normal. Thought content normal. Limitations: no limitations Course Vital Signs 04/12/18 14:46 Temperature 98.2 F Pulse Rate 108 H Respiratory 20 Rate Blood Pressure 124/71 O2 Sat by Pulse 100 Oximetry Medical Decision Making - Medical Decision Making Laboratory studies showed that there was no significant leukocytosis, transaminitis, pancreatitis or evidence of urinary tract infection. CT of the abdomen was performed and showed moderate colonic fecal stasis in the transverse colon with air filled appendix which was within normal limits. Upon reexamination, the patient was well-appearing and in no acute distress.It was explained that while there does not appear to be an emergent process, the etiology of the symptoms are still unclear but possibly related to fecal stasis and may need further workup as an outpatient if symptoms continue. Explained all labs and diagnostic test results and that we will discharge the patient home and patient is to follow up with PCP in 1-2 days and return to the ED if symptoms worsen. Pt is agreeable to plan. - Lab Data Result diagrams: 04/12/18 16:00 04/12/18 16:00 Lab Results 04/12/18 04/12/18 04/12/18 Range/Units 16:00 16:00 16:00 WBC 7.6 (3.8-10.6) k/uL RBC 4.30 (3.80-5.40) m/uL Hgb 12.6 (11.4-16.0) gm/dL Hct 37.8 (34.0-46.0) % MCV 88.0 (80.0-100.0) fL MCH 29.4 (25.0-35.0) pg MCHC 33.4 (31.0-37.0) g/dL RDW 13.9 (11.5-15.5) % Plt Count 264 (150-450) k/uL Neutrophils % 72 % Lymphocytes % 20 % Monocytes % 3 % Eosinophils % 3 % Basophils % 0 % Neutrophils # 5.5 (1.3-7.7) k/uL Lymphocytes # 1.5 (1.0-4.8) k/uL Monocytes # 0.3 (0-1.0) k/uL Eosinophils # 0.2 (0-0.7) k/uL Basophils # 0.0 (0-0.2) k/uL Sodium 142 (137-145) mmol/L Potassium 4.6 (3.5-5.1) mmol/L Chloride 106 (98-107) mmol/L Carbon Dioxide 27 (22-30) mmol/L Anion Gap 9 mmol/L BUN 13 (7-17) mg/dL Creatinine 0.57 (0.52-1.04) mg/dL Est GFR (CKD-EPI)AfAm >90 (>60 ml/min/1.73 sqM) Est GFR (CKD-EPI)NonAf >90 (>60 ml/min/1.73 sqM) Glucose 94 (74-99) mg/dL Calcium 9.5 (8.4-10.2) mg/dL Total Bilirubin 0.6 (0.2-1.3) mg/dL AST 37 H (14-36) U/L ALT 40 (9-52) U/L Alkaline Phosphatase 72 (38-126) U/L Total Protein 7.9 (6.3-8.2) g/dL Albumin 4.5 (3.5-5.0) g/dL Lipase 38 (23-300) U/L Urine Color Light Yellow Urine Appearance Cloudy H (Clear) Urine pH 7.5 (5.0-8.0) Ur Specific [place] 1.010 (1.001-1.035) Urine Protein Negative (Negative) Urine Glucose (UA) Negative (Negative) Urine Ketones Negative (Negative) Urine Blood Negative (Negative) Urine Nitrite Negative (Negative) Urine Bilirubin Negative (Negative) Urine Urobilinogen <2.0 (<2.0) mg/dL Ur Leukocyte Esterase Negative (Negative) Urine WBC 2 (0-5) /hpf Ur Squamous Epith Cells 3 (0-4) /hpf Amorphous Sediment Rare H (None) /hpf Urine Bacteria Rare H (None) /hpf Urine Mucus Rare H (None) /hpf Disposition Clinical Impression: Abdominal pain Disposition: HOME SELF-CARE Condition: Good Instructions (If sedation given, give patient instructions): Abdominal Pain (ED ) Is patient prescribed a controlled substance at d/c from ED?: No Referrals: None,Stated [Primary Care Provider] - 1-2 days Time of Disposition: 17:16
[2018-04-12 16:27] LABS: Basophils % (A) 0 %; Eosinophils # (A) 0.2 k/uL (0-0.7); Eosinophils % (A) 3 %; HCT 37.8 % (34.0-46.0); HGB 12.6 gm/dL (11.4-16.0); Lymphocytes # (A) 1.5 k/uL (1.0-4.8); Lymphocytes % (A) 20 %; MCH 29.4 pg (25.0-35.0); MCHC 33.4 g/dL (31.0-37.0); Mean Platelet Volume 6.4; Monocytes # (A) 0.3 k/uL (0-1.0); Monocytes % (A) 3 %; Neutrophils # (A) 5.5 k/uL (1.3-7.7); Neutrophils % (A) 72 %; Platelet Count 264 k/uL (150-450); RDW 13.9 % (11.5-15.5); WBC 7.6 k/uL (3.8-10.6)
[2018-04-12 16:39] LABS: Amorphous Sediment,Urine Rare /hpf; Appearance,Urine Cloudy (Clear); Bacteria,Urine Rare /hpf; Bilirubin,Urine Negative (Negative); Blood,Urine Negative (Negative); Color,Urine Light Yellow; Glucose,Urine (UA) Negative (Negative); Ketones,Urine Negative (Negative); Leukocyte Esterase,Urine Negative (Negative); Mucus,Urine Rare /hpf; Nitrite,Urine Negative (Negative); PH, Urine 7.5 (5.0-8.0); Protein,Urine Negative (Negative); Squamous Epithelial Cell,Urine 3 /hpf (0-4); Urobilinogen,Urine <2.0 mg/dL (<2.0); WBC,Urine 2 /hpf (0-5)
[2018-04-12 16:58] LABS: ALT 40 U/L (9-52); AST 37 U/L (14-36); Albumin 4.5 g/dL (3.5-5.0); Alkaline Phosphatase 72 U/L (38-126); Anion Gap 9 mmol/L; Blood Urea Nitrogen 13 mg/dL (7-17); Calcium 9.5 mg/dL (8.4-10.2); Carbon Dioxide 27 mmol/L (22-30); Chloride 106 mmol/L (98-107); Glucose 94 mg/dL (74-99); Lipase 38 U/L (23-300); Potassium 4.6 mmol/L (3.5-5.1); Sodium 142 mmol/L (137-145); Total Bilirubin 0.6 mg/dL (0.2-1.3); Total Protein 7.9 g/dL (6.3-8.2)
--- NOTE | 2018-04-12 17:04 | CT ---
EXAMINATION TYPE: CT abdomen pelvis w con DATE OF EXAM: 04/12/2018 HISTORY: Lower abdominal pain CT DLP: 1626.9mGycm Automated Exposure Control for Dose Reduction was Utilized. CONTRAST: CT scan of the abdomen and pelvis is performed with IV Contrast, patient injected with 100 mL of Isov ue 300. COMPARISON: 10/08/2017 FINDINGS: LUNG BASES: Minimal dependent bibasilar subsegmental atelectasis is noted LIVER/GB: There is a wedge-shaped area of hypoattenuation near the fissure for the falciform ligament , most commonly related to focal fatty infiltration. Gallbladder surgically absent. The most cranial aspect of the liver is not imaged and cannot be evaluated. PANCREAS: No significant abnormality is seen. SPLEEN: No significant abnormality is seen. ADRENALS: No significant abnormality is seen. KIDNEYS: Focal contour defect is seen of the right posterior superior pole of the kidney with caliect asis and scarring of the right upper pole. Renal sinus cyst on the left are less conspicuous on today 's exam than on the prior. BOWEL: Moderate colonic fecal stasis is noted predominantly throughout the transverse colon, limiting evaluation for bowel wall thickening. No pericolonic fat stranding changes are seen. Appendix is air -filled and within normal limits. UTERUS/ADNEXA: Uterus appears surgically absent. LYMPH NODES: No greater than 1cm abdominal or pelvic lymph nodes are appreciated. OSSEOUS STRUCTURES: No significant abnormality is seen. OTHER: Surgical clip is noted within the right low pelvis near the common iliac venous bifurcation. IMPRESSION: No finding to correspond to the patient's low abdominal pain. Moderate colonic fecal quang is is seen.
[2018-04-12 18:00] VITALS: RESP 18
[2018-04-12 18:22] VITALS: BP 152/99; PULSE 79; TEMP 97.8
== END 2018-04-12 18:20 | disposition home or self-care (01) ==
LOC: EC 14:39
DX: R10.30 Lower abdominal pain, unspecified (principal); K59.8 Other specified functional intestinal disorders; R11.0 Nausea; R19.7 Diarrhea, unspecified; M54.9 Dorsalgia, unspecified; G89.29 Other chronic pain; Z79.891 Long term (current) use of opiate analgesic; Z79.899 Other long term (current) drug therapy; Z88.0 Allergy status to penicillin; Z88.1 Allergy status to other antibiotic agents; Z88.6 Allergy status to analgesic agent; Z88.5 Allergy status to narcotic agent; Z91.018 Allergy to other foods; Z87.42 Personal history of other diseases of the female genital tract; Z90.710 Acquired absence of both cervix and uterus
CPT/HCPCS: 36415; 80053; 83690; 85025; 81001; 74177; 99284; 96374; 96375; 96361; J2405; J1170; Q9967

== ENCOUNTER 2018-08-31 11:54 | Inpatient (IN) | payer MEDICARE, OTHER ==
[2018-08-31] MEDS ORDERED: SODIUM CHLORIDE 0.9% 1,000 ML IV STA (12:51)
[2018-08-31] MEDS ORDERED: ACETAMINOPHEN TAB 500 MG TAB PO STA (12:51)
[2018-08-31] MEDS ORDERED: ONDANSETRON 4 MG/2 ML VIAL IVP STA (12:52)
[2018-08-31] MEDS ORDERED: cefTRIAXone IN SWFI 1,000 MG/10 ML SYRINGE IVP STA (12:52)
[2018-08-31 13:37] LABS: Basophils % (A) 0 %; Eosinophils # (A) 0.1 k/uL (0-0.7); Eosinophils % (A) 1 %; HCT 37.9 % (34.0-46.0); HGB 12.4 gm/dL (11.4-16.0); Lymphocytes # (A) 0.6 k/uL (1.0-4.8); Lymphocytes % (A) 9 %; MCHC 32.6 g/dL (31.0-37.0); MCV 89.1 fL (80.0-100.0); Mean Platelet Volume 6.6; Monocytes # (A) 0.3 k/uL (0-1.0); Monocytes % (A) 5 %; Neutrophils # (A) 5.5 k/uL (1.3-7.7); Neutrophils % (A) 83 %; Platelet Count 207 k/uL (150-450); RBC 4.26 m/uL (3.80-5.40); RDW 13.4 % (11.5-15.5); WBC 6.6 k/uL (3.8-10.6)
--- NOTE | 2018-08-31 13:37 | ED ---
Fever HPI - General Chief Complaint: Fever Stated Complaint: Fever, poss infection Time Seen by Provider: 08/31/18 12:31 Source: patient Mode of arrival: wheelchair Limitations: no limitations - History of Present Illness Initial Comments: Patient is a 33-year-old female with history of pyelonephritis is presenting to emergency department with abdominal pain. Patient reports the pain started approximately a week ago with increase her urgency, frequency and dysuria. Patient reports going to her primary care who prescribed Keflex for the patient with minimal improvement. Patient reports the pain has increased in severity and she continues to have the urinary symptoms. Patient denies vaginal discharge but does report hematuria. Patient reports the pain is located mostly on the left lower and upper quadrant and it radiates to the back. Patient also reports left flank pain. Patient reports nausea and multiple episodes of vomiting with no diarrhea. Patient denies taking any medication to alleviate the pain. Patient reports an intermittent fever over the past few days. - Related Data Home Medications Medication Instructions Recorded Confirmed HYDROcodone/APAP 10-325MG [[place] 1 tab PO QID 03/12/16 08/31/18 10-325] LORazepam [Ativan] 0.5 - 1 tab PO TID 08/31/18 08/31/18 Previous Rx's Medication Instructions Recorded Cefuroxime Axetil [Ceftin] 500 mg PO BID 3 Days #6 tab 09/03/18 Allergies Allergy/AdvReac Type Severity Reaction Status Date / Time ketorolac tromethamine Allergy Rash/Hives Verified 08/31/18 17:37 [From Toradol] levofloxacin [From Levaquin] Allergy Rash/Hives Verified 08/31/18 17:37 morphine Allergy Rash/Hives Verified 08/31/18 17:37 Penicillins Allergy Rash/Hives Verified 08/31/18 17:37 propoxyphene napsylate Allergy Rash/Hives Verified 08/31/18 17:37 [From Darvocet-N 100] tramadol Allergy Rash/Hives Verified 08/31/18 17:37 aspirin AdvReac Nausea & Verified 08/31/18 17:37 Vomiting tomato AdvReac Unknown Verified 08/31/18 17:37 Review of Systems ROS Statement: Those systems with pertinent positive or pertinent negative responses have been documented in the HPI. ROS Other: All systems not noted in ROS Statement are negative. Past Medical History Past Medical History: CVA/TIA Additional Past Medical History / Comment(s): pyelonephritis, ADD, chronic back pain, MS, factor 12 deficiency, abdominal pain, vomiting History of Any Multi-Drug Resistant Organisms: ESBL, MRSA Date of last positivie culture/infection: 01/14/15-ESBL E.coli; 10/29/05-MRSA MDRO Source:: ESBL Urine; MRSA armpit Past Surgical History: Section, Cholecystectomy, Hysterectomy, Joint Replacement Additional Past Surgical History / Comment(s): Left knee replacement, Past Anesthesia/Blood Transfusion Reactions: No Reported Reaction Past Psychological History: ADD/ADHD, Anxiety Smoking Status: Never smoker Past Alcohol Use History: None Reported Past Drug Use History: None Reported - Past Family History Father History Unknown: Yes Additional Family Medical History / Comment(s): from aneurysm 5 years after Mother History Unknown: Yes Additional Family Medical History / Comment(s): from aneurysm and cancer at age 58 General Exam Limitations: no limitations General appearance: alert, in no apparent distress Head exam: Present: atraumatic, normocephalic, normal inspection Eye exam: Present: normal appearance, PERRL, EOMI Pupils: Present: normal accommodation ENT exam: Present: normal exam, mucous membranes dry Neck exam: Present: normal inspection, full ROM. Absent: tenderness, lymphadenopathy Respiratory exam: Present: normal lung sounds bilaterally Cardiovascular Exam: Present: regular rate, normal rhythm, normal heart sounds GI/Abdominal exam: Present: soft, tenderness (Left upper quadrant and left lower quadrant.), normal bowel sounds, other (Negative Manuel sign, negative Rovsing, negative psoas sign.). Absent: distended, guarding, rebound, rigid Extremities exam: Present: normal inspection, full ROM Back exam: Present: normal inspection, tenderness, CVA tenderness (L). Absent: full ROM (Limited due to pain) Neurological exam: Present: alert, oriented X3 Psychiatric exam: Present: normal affect, normal mood Skin exam: Present: warm, intact, normal color Course Vital Signs 08/31/18 08/31/18 08/31/18 12:25 13:00 13:20 Temperature 102.6 F H Pulse Rate 142 H Respiratory 20 Rate Blood Pressure 148/87 147/95 145/92 O2 Sat by Pulse 98 Oximetry 08/31/18 08/31/18 08/31/18 13:40 14:00 14:20 Temperature 103.2 F H Pulse Rate 126 H Respiratory 18 Rate Blood Pressure 150/105 145/94 150/96 O2 Sat by Pulse 99 99 99 Oximetry 08/31/18 08/31/18 08/31/18 14:40 15:00 15:20 Temperature Pulse Rate 103 H Respiratory 16 Rate Blood Pressure 148/91 116/92 129/78 O2 Sat by Pulse 96 96 Oximetry 08/31/18 08/31/18 08/31/18 15:40 16:00 16:20 Temperature 101.6 F H Pulse Rate 106 H Respiratory 18 Rate Blood Pressure 106/61 97/47 111/57 O2 Sat by Pulse 96 95 Oximetry 08/31/18 08/31/18 16:40 17:00 Temperature 100.6 F H Pulse Rate 103 H Respiratory 18 16 Rate Blood Pressure 108/63 115/62 O2 Sat by Pulse 95 96 Oximetry Medical Decision Making - Medical Decision Making Patient is a 33-year-old female presents emergency Department with abdominal pain. Labs are unremarkable. Urinalysis is showing elevated nitrates, leukocyte esterase and white blood cells. Patient was given Tylenol for fever control. Patient was given 1 L of fluids and 1 g of Rocephin. Patient was given 0.5 mg of Dilaudid for pain control. KUB is unremarkable. CT of abdomen and pelvis is suggestive of moderate circumferential bladder wall thickening, borderline hepatosplenomegaly, and 2 mm nonobstructive left renal calculus. Patient will be admitted for close monitoring. Dr. Watkins also examine the patient and is in agreement with the treatment plan. The admitting physician is . - Lab Data Result diagrams: 09/03/18 07:52 09/03/18 07:52 Lab Results 08/31/18 08/31/18 08/31/18 Range/Units 13:25 13:25 13:25 WBC 6.6 (3.8-10.6) k/uL RBC 4.26 (3.80-5.40) m/uL Hgb 12.4 (11.4-16.0) gm/dL Hct 37.9 (34.0-46.0) % MCV 89.1 (80.0-100.0) fL MCH 29.0 (25.0-35.0) pg MCHC 32.6 (31.0-37.0) g/dL RDW 13.4 (11.5-15.5) % Plt Count 207 (150-450) k/uL Neutrophils % 83 % Lymphocytes % 9 % Monocytes % 5 % Eosinophils % 1 % Basophils % 0 % Neutrophils # 5.5 (1.3-7.7) k/uL Lymphocytes # 0.6 L (1.0-4.8) k/uL Monocytes # 0.3 (0-1.0) k/uL Eosinophils # 0.1 (0-0.7) k/uL Basophils # 0.0 (0-0.2) k/uL Sodium 139 (137-145) mmol/L Potassium 4.0 (3.5-5.1) mmol/L Chloride 102 (98-107) mmol/L Carbon Dioxide 27 (22-30) mmol/L Anion Gap 10 mmol/L BUN 12 (7-17) mg/dL Creatinine 0.74 (0.52-1.04) mg/dL Est GFR (CKD-EPI)AfAm >90 (>60 ml/min/1.73 sqM) Est GFR (CKD-EPI)NonAf >90 (>60 ml/min/1.73 sqM) Glucose 106 H (74-99) mg/dL Plasma Lactic Acid Julio 1.3 (0.7-2.0) mmol/L Calcium 9.2 (8.4-10.2) mg/dL Total Bilirubin 0.8 (0.2-1.3) mg/dL AST 30 (14-36) U/L ALT 26 (9-52) U/L Alkaline Phosphatase 87 (38-126) U/L Total Protein 8.3 H (6.3-8.2) g/dL Albumin 4.6 (3.5-5.0) g/dL Urine Color Urine Appearance (Clear) Urine pH (5.0-8.0) Ur Specific [place] (1.001-1.035) Urine Protein (Negative) Urine Glucose (UA) (Negative) Urine Ketones (Negative) Urine Blood (Negative) Urine Nitrite (Negative) Urine Bilirubin (Negative) Urine Urobilinogen (<2.0) mg/dL Ur Leukocyte Esterase (Negative) Urine RBC (0-5) /hpf Urine WBC (0-5) /hpf Urine WBC Clumps (None) /hpf Ur Squamous Epith Cells (0-4) /hpf Urine Bacteria (None) /hpf Urine Mucus (None) /hpf Urine HCG, Qual (Not Detectd) 08/31/18 08/31/18 Range/Units 14:17 14:17 WBC (3.8-10.6) k/uL RBC (3.80-5.40) m/uL Hgb (11.4-16.0) gm/dL Hct (34.0-46.0) % MCV (80.0-100.0) fL MCH (25.0-35.0) pg MCHC (31.0-37.0) g/dL RDW (11.5-15.5) % Plt Count (150-450) k/uL Neutrophils % % Lymphocytes % % Monocytes % % Eosinophils % % Basophils % % Neutrophils # (1.3-7.7) k/uL Lymphocytes # (1.0-4.8) k/uL Monocytes # (0-1.0) k/uL Eosinophils # (0-0.7) k/uL Basophils # (0-0.2) k/uL Sodium (137-145) mmol/L Potassium (3.5-5.1) mmol/L Chloride (98-107) mmol/L Carbon Dioxide (22-30) mmol/L Anion Gap mmol/L BUN (7-17) mg/dL Creatinine (0.52-1.04) mg/dL Est GFR (CKD-EPI)AfAm (>60 ml/min/1.73 sqM) Est GFR (CKD-EPI)NonAf (>60 ml/min/1.73 sqM) Glucose (74-99) mg/dL Plasma Lactic Acid Julio (0.7-2.0) mmol/L Calcium (8.4-10.2) mg/dL Total Bilirubin (0.2-1.3) mg/dL AST (14-36) U/L ALT (9-52) U/L Alkaline Phosphatase (38-126) U/L Total Protein (6.3-8.2) g/dL Albumin (3.5-5.0) g/dL Urine Color Yellow Urine Appearance Cloudy H (Clear) Urine pH 8.0 (5.0-8.0) Ur Specific [place] 1.012 (1.001-1.035) Urine Protein Trace H (Negative) Urine Glucose (UA) Negative (Negative) Urine Ketones Negative (Negative) Urine Blood Small H (Negative) Urine Nitrite Positive H (Negative) Urine Bilirubin Negative (Negative) Urine Urobilinogen <2.0 (<2.0) mg/dL Ur Leukocyte Esterase Large H (Negative) Urine RBC 13 H (0-5) /hpf Urine WBC 137 H (0-5) /hpf Urine WBC Clumps Rare H (None) /hpf Ur Squamous Epith Cells 2 (0-4) /hpf Urine Bacteria Occasional H (None) /hpf Urine Mucus Rare H (None) /hpf Urine HCG, Qual Not Detected (Not Detectd) Disposition Clinical Impression: Abdominal pain Disposition: ADMITTED IP TO THIS HOSP Condition: Stable Is patient prescribed a controlled substance at d/c from ED?: No Time of Disposition: 14:00
[2018-08-31 13:47] LABS: ALT 26 U/L (9-52); AST 30 U/L (14-36); African American GFR (CKD) >90 (>60 ml/min/1.73 sqM); Albumin 4.6 g/dL (3.5-5.0); Alkaline Phosphatase 87 U/L (38-126); Anion Gap 10 mmol/L; Blood Urea Nitrogen 12 mg/dL (7-17); Calcium 9.2 mg/dL (8.4-10.2); Carbon Dioxide 27 mmol/L (22-30); Chloride 102 mmol/L (98-107); Glucose 106 mg/dL (74-99); Sodium 139 mmol/L (137-145); Total Bilirubin 0.8 mg/dL (0.2-1.3); Total Protein 8.3 g/dL (6.3-8.2)
--- NOTE | 2018-08-31 13:59 | XR ---
EXAMINATION TYPE: XR KUB , 2 VIEWS DATE OF EXAM ORDERED: 08/31/2018 HISTORY: Pain. COMPARISON: Previous study dated 9:10 AM obtained. FINDINGS: Lung bases are clear. Within the abdomen, the gallbladder is been removed. The abdominal gas pattern is within normal limit s. There is no evidence of obstruction or free air. No unusual calcifications are seen. There has bee n previous right-sided pelvic surgery. IMPRESSION: NO ACUTE INTRA-ABDOMINAL ABNORMALITY.
[2018-08-31] MEDS ORDERED: HYDROmorphone 1 MG/ML 1 ML SYRINGE IVP STA (14:25)
[2018-08-31 14:33] LABS: Appearance,Urine Cloudy (Clear); Bacteria,Urine Occasional /hpf; Bilirubin,Urine Negative (Negative); Blood,Urine Small (Negative); Color,Urine Yellow; Glucose,Urine (UA) Negative (Negative); Ketones,Urine Negative (Negative); Leukocyte Esterase,Urine Large (Negative); Mucus,Urine Rare /hpf; Nitrite,Urine Positive (Negative); Protein,Urine Trace (Negative); RBC,Urine 13 /hpf (0-5); Specific Gravity,Urine 1.012 (1.001-1.035); Squamous Epithelial Cell,Urine 2 /hpf (0-4); Urobilinogen,Urine <2.0 mg/dL (<2.0); WBC,Urine 137 /hpf (0-5)
--- NOTE | 2018-08-31 15:40 | CT ---
EXAMINATION TYPE: CT abdomen pelvis wo con DATE OF EXAM: 08/31/2018 COMPARISON: 04/12/2018 HISTORY: 33-year-old female Fever, abdomen pain. Sx hx- C-sect., GB, Hyst. CT DLP: 974.1 mGycm. Automated exposure control for dose reduction was used. TECHNIQUE: Contiguous axial scanning of the abdomen and pelvis without IV contrast. Coronal and sagit angie reconstructions performed. FINDINGS: Heart upper limits of normal in size. Trace anterior basilar pericardial fluid. Strandy atelectasis l eft base without pleural effusion. Noncontrast appearance shows borderline size of the liver at 17.3 cm. Cholecystectomy clips. Spleen borderline enlarged at 13.5 cm. Adrenal glands and right kidney show no gross abnormality by noncontrast technique. Punctate 2 mm non obstructive calculus lower pole left kidney. No dilated small bowel, free fluid, or free air.. Probable prominent but nonenlarged retroperitoneal lymph nodes measure up to 5 mm. No mesenteric or r etroperitoneal lymphadenopathy otherwise identified. Normal appendix. Moderate stool burden. No pericolonic inflammatory change.. Circumferential bladder wall thickening. No abnormal fluid collection in the pelvis or pelvic lymphad enopathy. Uterus surgically absent. Suspect visualization of the left ovary, axial image 117. Right ovary not c learly seen. No abnormal fluid collection in the pelvis or pelvic lymphadenopathy. Surgical clips in the right adnexa. Left-sided pelvic phlebolith. Bones: No osseous destructive process. IMPRESSION: 1. Normal appendix. Moderate snowboarding. 2. Moderate circumferential bladder wall thickening. Correlate to exclude cystitis. 3. Borderline hepatosplenomegaly (liver 17.3 cm and spleen 13.5 cm). 4. A 2 mm nonobstructive left renal calculus. 5. Surgical clips in the right side of the pelvis. 6. Noncontrast study.
[2018-08-31] MEDS ORDERED: HYDROmorphone 0.5 MG/0.5 ML SYRINGE IVP STA (16:39)
[2018-08-31] MEDS ORDERED: NALOXONE 0.4 MG/ML 1 ML VIAL IV PRN (16:42)
[2018-08-31] MEDS: SODIUM CHLORIDE 0.9% 1,000 ML IV SCH (17:03)
[2018-08-31 17:36] VITALS: BMI 43.4
--- NOTE | 2018-08-31 18:52 | P.HPIM ---
History of Present Illness H&P Date: 08/31/18 Chief Complaint: Fever Patient is a 31-year-old female with a known history of previous pyelonephritis, morbid obesity presents to ER with complaints of fever and chills and abdominal pain. Patient reports the pain started approximately about one week ago with increasing frequency of urination, dysuria and foul-smelling urine. Patient says that she's being treated for acute urinary tract infection with Keflex. Patient says that her pain continues to increase in severity with fever and chills and foul-smelling urine. Patient was also having nausea vomiting and abdominal pain. Patient says the pain is mainly in the lower abdomen is also radiating to her back to the left flank. Patient also been very sleepy and lethargic recently. CT abdomen showed normal appendix. Moderate snowboarding. Moderate circumferential bladder wall thickening. Correlate to exclude cystitis. Borderline hepatosplenomegaly. A 2 mL nonobstructive calculus. Surgical clips in the right side of the pelvis. KUB x-ray showed no acute intra-abdominal abnormality. WBC 6.6. T-max 102.6 on admission and tachycardic. Urinalysis showed cloudy, leukocyte esterase positive and nitrite positive, WBC 137 and squamous epithelial cells 2 Review of Systems Constitutional: Fevers and chills.. Generalized weakness and malaise.. Abdomen: Nausea vomiting and abdominal pain. No diarrhea. No constipation.. Cardiovascular: Patient denies any chest pain or short of breath no palpitations. Respiratory: patient denied any cough is from production. No shortness of breath Neurologic: Patient denied any numbness or tingling headache. Sleepy and lethargic. Musculoskeletal: Patient denies any complaints of joint swelling or deformity. Skin: Negative Psychiatric: Negative Endocrine: No heat or cold intolerance. No recent weight gain. Genitourinary: No dysuria or hematuria. All other 14 point ROS negative except the above Past Medical History Past Medical History: CVA/TIA Additional Past Medical History / Comment(s): pyelonephritis, ADD, chronic back pain, MS, factor 12 deficiency, abdominal pain, vomiting History of Any Multi-Drug Resistant Organisms: ESBL, MRSA Date of last positivie culture/infection: 01/14/15-ESBL E.coli; 10/29/05-MRSA MDRO Source:: ESBL Urine; MRSA armpit Past Surgical History: Section, Cholecystectomy, Hysterectomy, Joint Replacement Additional Past Surgical History / Comment(s): Left knee replacement, Past Anesthesia/Blood Transfusion Reactions: No Reported Reaction Past Psychological History: ADD/ADHD, Anxiety Additional Psychological History / Comment(s): ativan as needed Smoking Status: Never smoker Past Alcohol Use History: None Reported Past Drug Use History: None Reported - Past Family History Father History Unknown: Yes Additional Family Medical History / Comment(s): from aneurysm 5 years after Mother History Unknown: Yes Additional Family Medical History / Comment(s): from aneurysm and cancer at age 58 Medications and Allergies Home Medications Medication Instructions Recorded Confirmed Type HYDROcodone/APAP 10-325MG [[place] 1 tab PO QID 03/12/16 08/31/18 History 10-325] LORazepam [Ativan] 0.5 - 1 tab PO TID 08/31/18 08/31/18 History Allergies Allergy/AdvReac Type Severity Reaction Status Date / Time ketorolac tromethamine Allergy Rash/Hives Verified 08/31/18 17:37 [From Toradol] levofloxacin [From Levaquin] Allergy Rash/Hives Verified 08/31/18 17:37 morphine Allergy Rash/Hives Verified 08/31/18 17:37 Penicillins Allergy Rash/Hives Verified 08/31/18 17:37 propoxyphene napsylate Allergy Rash/Hives Verified 08/31/18 17:37 [From Darvocet-N 100] tramadol Allergy Rash/Hives Verified 08/31/18 17:37 aspirin AdvReac Nausea & Verified 08/31/18 17:37 Vomiting tomato AdvReac Unknown Verified 08/31/18 17:37 Physical Exam Vitals: Vital Signs Temp Pulse Pulse Resp BP BP Pulse Ox 08/31/18 17:24 100.7 F H 101 H 20 137/80 96 08/31/18 17:00 100.6 F H 103 H 16 115/62 96 08/31/18 16:40 18 108/63 95 08/31/18 16:20 111/57 95 08/31/18 16:00 97/47 08/31/18 15:40 101.6 F H 106 H 18 106/61 96 08/31/18 15:20 103 H 16 129/78 96 08/31/18 15:00 116/92 96 06/30/19 14:40 148/91 08/31/18 14:20 103.2 F H 126 H 18 150/96 99 08/31/18 14:00 145/94 99 08/31/18 13:40 150/105 99 08/31/18 13:20 145/92 08/31/18 13:00 147/95 08/31/18 12:25 102.6 F H 142 H 20 148/87 98 Intake and Output 08/31/18 08/31/18 08/31/18 06:59 14:59 22:59 Output Total 250 Balance -250 Output: Urine 250 Other: Voiding Method Toilet # Voids 1 Weight 91.172 kg PHYSICAL EXAMINATION: Patient is lying in the bed comfortably, no acute distress, awake alert and oriented.. HEENT: Normocephalic. Neck is supple. Pupils reactive. Nostrils clear. Oral cavity is moist. Ears reveal no drainage. Neck reveals no JVD, carotid bruits, or thyromegaly. CHEST EXAMINATION: Trachea is central. Symmetrical expansion. Bibasilar diminished air entry. Lung somers clear to auscultation and percussion. CARDIAC: Normal S1, S2 with no gallops. No murmurs ABDOMEN: Soft. Lower abdominal tenderness and mild left flank tenderness. Bowel sounds normal. No organomegaly. No abdominal bruits. Extremities: reveal no edema. No clubbing or cyanosis Neurologically awake, alert, oriented x3 with well-coordinated movements. Lethargic. No focal deficits noted Skin: No rash or skin lesions. Psychiatric: Coperative. Nonsuicidal Musculoskeletal: No joint swelling or deformity. Normal range of motion. Results CBC & Chem 7: 08/31/18 13:25 08/31/18 13:25 Labs: Abnormal Lab Results - Last 24 Hours (Table) 08/31/18 08/31/18 08/31/18 Range/Units 13:25 13:25 14:17 Lymphocytes # 0.6 L (1.0-4.8) k/uL Glucose 106 H (74-99) mg/dL Total Protein 8.3 H (6.3-8.2) g/dL Urine Appearance Cloudy H (Clear) Urine Protein Trace H (Negative) Urine Blood Small H (Negative) Urine Nitrite Positive H (Negative) Ur Leukocyte Esterase Large H (Negative) Urine RBC 13 H (0-5) /hpf Urine WBC 137 H (0-5) /hpf Urine WBC Clumps Rare H (None) /hpf Urine Bacteria Occasional H (None) /hpf Urine Mucus Rare H (None) /hpf Thrombosis Risk Factor Assmnt - DVT/VTE Prophylaxis DVT/VTE Prophylaxis: Pharmacologic Prophylaxis ordered - Choose All That Apply Any of the Below Risk Factors Present?: Yes Each Factor Represents 1 point: Obesity (BMI >25) Other Risk Factors: Yes (factor 12) Thrombosis Risk Factor Assessment Total Risk Factor Score: 1 Thrombosis Risk Factor Assessment Level: Low Risk Assessment and Plan Assessment: Acute pyelonephritis. Failed outpatient therapy. Sepsis secondary to above Previous history of pyelonephritis. Morbid obesity with BMI 36.8 2 mm nonobstructive left renal calculus Borderline hepatosplenomegaly. Outpatient follow-up recommended. DVT prophylaxis with heparin subcu Plan: Patient will be Continued on IV hydration, antibiotics in the form of ceftriaxone. Follow-up urine culture and blood culture reports. Pain management with IV morphine. Further recommendations based on the clinical course. Time with Patient: Greater than 30
[2018-08-31] MEDS: HYDROmorphone 1 MG/ML 1 ML SYRINGE IVP PRN ×2 (21:05→23:50)
[2018-08-31] MEDS: ACETAMINOPHEN TAB 325 MG TAB PO PRN (21:06)
[2018-08-31] MEDS: HEPARIN SODIUM,PORCINE 5,000 UNIT/ML 1 ML VIAL SQ SCH (23:50)
[2018-09-01] MEDS: HYDROmorphone 1 MG/ML 1 ML SYRINGE IVP PRN ×7 (03:52→22:16)
[2018-09-01] MEDS: HEPARIN SODIUM,PORCINE 5,000 UNIT/ML 1 ML VIAL SQ SCH ×2 (09:01→16:21)
[2018-09-01] MEDS: ACETAMINOPHEN TAB 325 MG TAB PO PRN (09:01)
[2018-09-01] MEDS: SODIUM CHLORIDE 0.9% 1,000 ML IV SCH ×2 (16:14→21:26)
[2018-09-01] MEDS: LORazepam 0.5 MG TAB PO SCH (21:27)
[2018-09-02] MEDS: HEPARIN SODIUM,PORCINE 5,000 UNIT/ML 1 ML VIAL SQ SCH ×3 (00:02→18:02)
[2018-09-02] MEDS: SODIUM CHLORIDE 0.9% 1,000 ML IV SCH (00:02)
[2018-09-02] MEDS: HYDROmorphone 1 MG/ML 1 ML SYRINGE IVP PRN ×7 (01:23→21:15)
--- NOTE | 2018-09-02 05:38 | PN ---
PROGRESS NOTE DATE OF SERVICE: 09/01/2018 This 33-year-old woman who was admitted with significant pain on the left side was though to have pyelonephritis. Abdomen and pelvis CAT scan was done which showed a normal appendix, moderate circumferential bladder wall thickening and borderline hepatosplenomegaly. The patient also complaining of some chest pains also. No fever. No cough. PHYSICAL EXAMINATION: On exam, alert and oriented x3. Pulse 93, blood pressure 117/59, respirations 16, temperature 98.7, T-max 100.4, pulse ox 97% on room air. HEENT: Conjunctivae normal. CARDIOVASCULAR: S1, S2, muffled. RESPIRATORY: Breath sounds diminished at the bases. A few scattered rhonchi and crackles. ABDOMEN: Soft, mild diffuse tenderness in the left loin to groin present. No guarding or rigidity. LEGS: No edema. No swelling. NERVOUS SYSTEM: No focal deficits. LABS: CBC within normal limits. Otherwise, UA noted. Cultures are pending at this time. ASSESSMENT: 1. Left-sided abdominal severe pain with acute pyelonephritis with urinary tract infection. 2. History of cerebrovascular accident, transient ischemic attack. 3. History of attention deficit disorder, attention deficit hyperactivity disorder .. 4. Chronic low back pain. 5. History of multiple sclerosis. 6. History of vitamin B12 deficiency. 7. Abdominal pain. 8. ESBL. 9. History of methicillin-resistant Staphylococcus aureus. 10.History of cholecystectomy. 11.History of anxiety. RECOMMENDATIONS AND DISCUSSION: This 33-year-old woman presented with multiple complex medical issues. Will monitor the patient closely. Continue the current medications. Continue the symptomatic treatment. Continue the pain medications, broad-spectrum IV antibiotics. Guarded prognosis because of multiple complex medical issues. Further recommendations to follow. CAT scan noted. Discussed with the patient, understands and agrees. Await cultures. MMODL / IJN: [id number] /
[2018-09-02] MEDS: ACETAMINOPHEN TAB 325 MG TAB PO PRN (07:36)
[2018-09-02] MEDS: LORazepam 0.5 MG TAB PO SCH ×3 (13:46→21:53)
[2018-09-02 14:18] LABS: Basophils % (A) 0 %; Eosinophils # (A) 0.2 k/uL (0-0.7); Eosinophils % (A) 3 %; HGB 10.7 gm/dL (11.4-16.0); Lymphocytes # (A) 1.3 k/uL (1.0-4.8); Lymphocytes % (A) 28 %; MCH 30.2 pg (25.0-35.0); MCHC 33.4 g/dL (31.0-37.0); MCV 90.5 fL (80.0-100.0); Mean Platelet Volume 7.3; Monocytes # (A) 0.3 k/uL (0-1.0); Monocytes % (A) 6 %; Neutrophils # (A) 2.8 k/uL (1.3-7.7); Neutrophils % (A) 59 %; Platelet Count 198 k/uL (150-450); RBC 3.54 m/uL (3.80-5.40); RDW 14.4 % (11.5-15.5); WBC 4.8 k/uL (3.8-10.6)
[2018-09-02 14:35] LABS: African American GFR (CKD) >90 (>60 ml/min/1.73 sqM); Anion Gap 8 mmol/L; Blood Urea Nitrogen 11 mg/dL (7-17); C Reactive Protein 48.2 mg/L (<10.0); Calcium 8.8 mg/dL (8.4-10.2); Carbon Dioxide 25 mmol/L (22-30); Chloride 108 mmol/L (98-107); Glucose 103 mg/dL (74-99); Sodium 141 mmol/L (137-145)
--- NOTE | 2018-09-02 18:36 | PN ---
PROGRESS NOTE DATE OF SERVICE: 09/02/2018 This 33-year-old woman who was admitted with left-sided abdominal pain had features of acute pyelonephritis. Patient is on IV antibiotics and symptomatic treatment of her pain. No chest pain. No palpitations. No fever. Final cultures are pending at this time. On exam, alert and oriented x3. Pulse 64, blood pressure 103/62, respiration 20, temperature 98 degrees, pulse ox 98% on room air. HEENT: Conjunctivae normal. NECK: No jugular venous distention. CARDIOVASCULAR SYSTEM: S1, S2 muffled. RESPIRATORY SYSTEM: Breath sounds diminished at the bases. A few scattered rhonchi. No crackles. ABDOMEN: Soft. Minimal tenderness on the left side. LABS: WBC 4.8, hemoglobin 10.7. Other labs are noted. Cultures are pending. ASSESSMENT: 1. Left-sided abdominal pain, severe, with acute pyelonephritis with urinary tract infection. 2. History of cerebrovascular accident, transient ischemic attack. 3. History of attention deficit disorder, attention deficit hyperactivity disorder. 4. Chronic low back pain. 5. History of multiple sclerosis. 6. History of B12 deficiency. 7. Abdominal pain. 8. History of extended-spectrum beta-lactamase. 9. History of methicillin-resistant Staphylococcus aeruginosa. 10.History of cholecystectomy. 11.History of anxiety. RECOMMENDATIONS AND DISCUSSION: I recommend to continue current medications, continue with the monitoring, symptomatic treatment. CT scan of abdomen and pelvis was noted. I would recommend continuing the antibiotics. Closely monitor. Symptomatic treatment for the pain. Increase ambulation. Further recommendations to follow. Findings on CT scan of the abdomen and pelvis to be followed up in the outpatient setting. MMODL / IJN: [id number] /
[2018-09-03] MEDS: SODIUM CHLORIDE 0.9% 1,000 ML IV SCH (00:18)
[2018-09-03] MEDS: HEPARIN SODIUM,PORCINE 5,000 UNIT/ML 1 ML VIAL SQ SCH ×2 (00:18→08:34)
[2018-09-03] MEDS: HYDROmorphone 1 MG/ML 1 ML SYRINGE IVP PRN ×4 (00:40→11:12)
[2018-09-03 08:20] LABS: Basophils % (A) 0 %; Eosinophils # (A) 0.1 k/uL (0-0.7); Eosinophils % (A) 2 %; HCT 33.1 % (34.0-46.0); HGB 10.8 gm/dL (11.4-16.0); Lymphocytes # (A) 1.5 k/uL (1.0-4.8); Lymphocytes % (A) 28 %; MCH 29.5 pg (25.0-35.0); MCHC 32.7 g/dL (31.0-37.0); MCV 90.4 fL (80.0-100.0); Mean Platelet Volume 7.4; Monocytes # (A) 0.2 k/uL (0-1.0); Monocytes % (A) 4 %; Neutrophils # (A) 3.3 k/uL (1.3-7.7); Neutrophils % (A) 63 %; Platelet Count 224 k/uL (150-450); RBC 3.67 m/uL (3.80-5.40); RDW 14.3 % (11.5-15.5); WBC 5.3 k/uL (3.8-10.6)
[2018-09-03 08:39] LABS: African American GFR (CKD) >90 (>60 ml/min/1.73 sqM); Anion Gap 10 mmol/L; Blood Urea Nitrogen 8 mg/dL (7-17); Carbon Dioxide 23 mmol/L (22-30); Chloride 107 mmol/L (98-107); Glucose 96 mg/dL (74-99); Potassium 4.3 mmol/L (3.5-5.1); Sodium 140 mmol/L (137-145)
[2018-09-03 08:50] VITALS: BP 96/62; PULSE 67; RESP 16; TEMP 98.3
[2018-09-03] MEDS: LORazepam 0.5 MG TAB PO SCH (08:51)
--- NOTE | 2018-09-04 09:16 | DS ---
DISCHARGE SUMMARY DATE OF SERVICE: 09/03/2018. FINAL DIAGNOSES: 1. Left-sided abdominal pain with acute pyelonephritis with UTI. 2. History of cerebrovascular accident, transient ischemic attack. 3. History of ADD, ADHD. 4. History of chronic low back pain. 5. History of multiple . 6. History of B12 deficiency. 7. Abdominal pain. 8. History of ESBL. 9. History of MRSA. 10.History of cholecystectomy. 11.History of anxiety. DISCHARGE CONDITION: The patient will be discharged in stable condition with guarded prognosis. HISTORY OF PRESENT ILLNESS: This is a 33-year-old woman with a past medical history of significant left-side abdomen pain, features of UTIs, history of pyelonephritis. Patient treated symptomatically. CT scan of the abdomen was reviewed. The patient improved significantly. On exam, vitals are stable. Cardiovascular system normal. Abdomen soft. Nervous system, no focal deficits. At this time the patient will be discharged in stable condition with guarded prognosis. The CT scan showed some bladder wall thickening. As mentioned earlier, cultures are negative so far. DIET: Cardiac. ACTIVITY: As tolerated. FOLLOWUP: With Dr. Aldair Bowen in 2-3 days. MEDICATIONS: 1. Ativan 0.5 mg 1 p.o. t.i.d. 2. [place] 10 mg q.i.d. as before. 3. Ceftin 500 mg p.o. b.i.d. for 3 days. Once again, the patient will be discharged in stable condition with guarded prognosis. MMODL / IJN: [id number] /
--- NOTE | 2018-09-05 02:48 | CDI ---
Documentation Clarification Form Date: 09/05/18 From: Devante Willingham Phone: call to [phone] Admit Date: 08/31/2018 4:36:00 PM Patient Name: Zee Baron Visit Number: [id number] Discharge Date: 09/03/2018 12:21:00 PM ATTENTION: The Clinical Documentation Specialists (CDI) and [facility] Coding Staff appreciate your assistance in clarifying documentation. Please respond to the clarification below the line at the bottom and electronically sign. The CDI & [facility] Coding staff will review the response and follow-up if needed. Please note: Queries are made part of the Legal Health Record. If you have any questions, please contact the author of this message via ITS. Krissy Self The patient presented with failed outpatient therapy of Pyelonephritis. Only Under H&P documneted as Sepsis secondary to pyelonephritis documented by brien Alvarado. History/Risk Factors: pyelonephritis Clinical Indicators: WBC : 6.6 Lactic acid:1.3 Vitals signs on admission: Pulse 142H RR 20 Antibiotics: Ceftriaxone IV Bolus: Yes In your professional opinion, please clarify if these findings signify one of the following conditions, whether the condition is POA, and cause, if known: Condition Sepsis( Ruled in or Ruled out) Other, please specify Unable to determine Unable to determine MTDD
== END 2018-09-03 12:21 | disposition home or self-care (01) | DRG 690 ==
LOC: EC 11:54 → 6PED 16:36
PROVIDERS: ADMIT Family Medicine; ATTEND Family Medicine
DX: N10 Acute pyelonephritis (principal); D68.2 Hereditary deficiency of other clotting factors; E66.01 Morbid (severe) obesity due to excess calories; R16.2 Hepatomegaly with splenomegaly, not elsewhere classified; R00.0 Tachycardia, unspecified; R53.83 Other fatigue; R50.9 Fever, unspecified; N20.0 Calculus of kidney; R11.10 Vomiting, unspecified; G89.29 Other chronic pain; Z90.710 Acquired absence of both cervix and uterus; Z96.652 Presence of left artificial knee joint; F90.9 Attention-deficit hyperactivity disorder, unspecified type; F41.9 Anxiety disorder, unspecified; Z68.36 Body mass index [BMI] 36.0-36.9, adult; Z86.73 Personal history of transient ischemic attack (TIA), and cerebral infarction without residual deficits; F98.8 Other specified behavioral and emotional disorders with onset usually occurring in childhood and adolescence; E53.8 Deficiency of other specified B group vitamins; G35 Multiple sclerosis; Z90.49 Acquired absence of other specified parts of digestive tract; Z86.14 Personal history of Methicillin resistant Staphylococcus aureus infection; Z86.19 Personal history of other infectious and parasitic diseases; Z88.5 Allergy status to narcotic agent; Z88.0 Allergy status to penicillin; Z88.6 Allergy status to analgesic agent; Z88.1 Allergy status to other antibiotic agents; Z91.02 Food additives allergy status; Z90.89 Acquired absence of other organs; Z98.871 Personal history of in utero procedure while a fetus
CPT/HCPCS: 36415; 74018; 74176; 80048; 80053; 81001; 81025; 83605; 85025; 86140; 87040; 87086; 96361; 96374; 96375; 96376; 99285

== ENCOUNTER 2018-12-13 14:38 | Emergency (ER) | payer MEDICARE, OTHER ==
[2018-12-13] MEDS ORDERED: SODIUM CHLORIDE 0.9% 1,000 ML IV ONE (15:16)
[2018-12-13] MEDS ORDERED: ONDANSETRON 4 MG/2 ML VIAL IVP STA (15:16)
--- NOTE | 2018-12-13 15:41 | ED ---
Female Urogenital HPI - General Source: patient Mode of arrival: ambulatory Limitations: no limitations <Chuck Tamez - Last Filed: 12/13/18 17:19> <Matilde Garcia - Last Filed: 12/14/18 00:33> - General Chief complaint: Urogenital Stated complaint: Urogenital Time Seen by Provider: 12/13/18 15:05 - History of Present Illness Initial comments: Patient is a 33-year-old female presenting to the emergency department with a chief complaint of nausea, vomiting, increased urgency or frequency or dysuria. Patient reports the symptoms began about 4 days ago and it increased in severity. Patient reports pain in the suprapubic region that is increased with urination. Patient does report UTI type symptoms. Patient denies any vaginal discharge or bleeding. Patient also reports left flank pain. Patient reports she had a fever the past 4 days but has never actually obtained the temperature. Patient reports taking salk-buy-xonabll medication minimal improvement. Patient reports she was previously hospitalized for pyonephritis. (Chuck Tamez) - Related Data Home Medications Medication Instructions Recorded Confirmed HYDROcodone/APAP 10-325MG [[place] 1 tab PO QID 03/12/16 08/31/18 10-325] LORazepam [Ativan] 0.5 - 1 tab PO TID 08/31/18 08/31/18 Previous Rx's Medication Instructions Recorded Cefuroxime Axetil [Ceftin] 500 mg PO BID 3 Days #6 tab 09/03/18 Ondansetron Odt [Zofran Odt] 4 mg PO Q8HR PRN #20 tab 12/13/18 Sulfamethox-Tmp 800-160Mg [Bactrim 1 each PO Q12HR #20 tab 12/13/18 Ds] Allergies Allergy/AdvReac Type Severity Reaction Status Date / Time ketorolac tromethamine Allergy Rash/Hives Verified 12/13/18 15:02 [From Toradol] levofloxacin [From Levaquin] Allergy Rash/Hives Verified 12/13/18 15:02 morphine Allergy Rash/Hives Verified 12/13/18 15:02 Penicillins Allergy Rash/Hives Verified 12/13/18 15:02 propoxyphene napsylate Allergy Rash/Hives Verified 12/13/18 15:02 [From Darvocet-N 100] tramadol Allergy Rash/Hives Verified 12/13/18 15:02 aspirin AdvReac Nausea & Verified 12/13/18 15:02 Vomiting tomato AdvReac Unknown Verified 12/13/18 15:02 Review of Systems ROS Other: All systems not noted in ROS Statement are negative. <Chuck Tamez - Last Filed: 12/13/18 17:19> ROS Other: All systems not noted in ROS Statement are negative. <Matiled Garcia - Last Filed: 12/14/18 00:33> ROS Statement: Those systems with pertinent positive or pertinent negative responses have been documented in the HPI. Past Medical History Past Medical History: CVA/TIA Additional Past Medical History / Comment(s): pyelonephritis, ADD, chronic back pain, MS, factor 12 deficiency, abdominal pain, vomiting History of Any Multi-Drug Resistant Organisms: ESBL, MRSA Date of last positivie culture/infection: 01/14/15-ESBL E.coli; 10/29/05-MRSA MDRO Source:: ESBL Urine; MRSA armpit Past Surgical History: Section, Cholecystectomy, Hysterectomy, Joint Replacement Additional Past Surgical History / Comment(s): Left knee replacement, Past Anesthesia/Blood Transfusion Reactions: No Reported Reaction Past Psychological History: ADD/ADHD, Anxiety Smoking Status: Never smoker Past Alcohol Use History: None Reported Past Drug Use History: None Reported - Past Family History Father History Unknown: Yes Additional Family Medical History / Comment(s): from aneurysm 5 years after Mother History Unknown: Yes Additional Family Medical History / Comment(s): from aneurysm and cancer at age 58 <Chuck Tamez - Last Filed: 12/13/18 17:19> General Exam Limitations: no limitations General appearance: alert, in no apparent distress, obese Head exam: Present: atraumatic, normocephalic, normal inspection Eye exam: Present: normal appearance, PERRL, EOMI Pupils: Present: normal accommodation ENT exam: Present: normal exam, mucous membranes moist, normal external ear exam Neck exam: Present: normal inspection, full ROM Respiratory exam: Present: normal lung sounds bilaterally Cardiovascular Exam: Present: regular rate, normal rhythm, normal heart sounds GI/Abdominal exam: Present: soft, tenderness (Suprapubic tenderness, generalized.) Extremities exam: Present: normal inspection, full ROM Back exam: Present: normal inspection, full ROM, CVA tenderness (L) Neurological exam: Present: alert, oriented X3 Psychiatric exam: Present: normal affect, normal mood Skin exam: Present: warm, intact, normal color <Chuck Tamez - Last Filed: 12/13/18 17:19> Course Vital Signs 12/13/18 12/13/18 15:00 17:51 Temperature 98.2 F 97.9 F Pulse Rate 75 78 Respiratory 16 18 Rate Blood Pressure 113/84 112/78 O2 Sat by Pulse 100 98 Oximetry Medical Decision Making - Lab Data Result diagrams: 12/13/18 15:20 <Chuck Tamez - Last Filed: 12/13/18 17:19> - Lab Data Result diagrams: 12/13/18 15:20 <Matilde Garcia - Last Filed: 12/14/18 00:33> - Medical Decision Making Patient is a 33-year-old female with history of pyelonephritis and frequent UTIs presenting to the emergency department with a chief complaint of UTI symptoms abdominal pain. Patient reports symptoms began 4 days ago and medications.. Patient does have urgency frequency and dysuria. Patient also has diffuse suprapubic tenderness and left flank tenderness. Patient also reports nausea with multiple episodes of vomiting. Patient reports fever but never actually obtain a temperature. Patient reports taking Keflex at home but did not improve her symptoms. However, patient only took 3 tablets daily instead of 4. CBC is unremarkable. UA is indicative of a urinary tract infection with positive white blood cells, leukocyte esterase and nitrates. Patient will be treated with a gram of Rocephin and discharged on Bactrim. Patient given analgesia, fluids and antiemetics. Patient also discharged on antiemetics. Patient advised to follow-up with primary care. Strict return parameters were thoroughly discussed with patient was understanding and agreeable. Case discussed physician. (Chuck Tamez) Patient was seen and evaluated after receiving IV fluid. Patient's been taking by mouth Keflex but is afebrile not tachycardiac has no Sirs criteria no leukocytosis, urinalysis consistent with urinary tract infection. Patient comfortable with IV dose of Rocephin here and plan for outpatient Bactrim. (Matilde Garcia) - Lab Data Lab Results 12/13/18 12/13/18 12/13/18 Range/Units 15:20 15:20 15:20 WBC 6.5 (3.8-10.6) k/uL RBC 3.97 (3.80-5.40) m/uL Hgb 12.2 (11.4-16.0) gm/dL Hct 35.0 (34.0-46.0) % MCV 88.4 (80.0-100.0) fL MCH 30.7 (25.0-35.0) pg MCHC 34.8 (31.0-37.0) g/dL RDW 13.0 (11.5-15.5) % Plt Count 243 (150-450) k/uL Neutrophils % 54 % Lymphocytes % 34 % Monocytes % 6 % Eosinophils % 5 % Basophils % 0 % Neutrophils # 3.5 (1.3-7.7) k/uL Lymphocytes # 2.2 (1.0-4.8) k/uL Monocytes # 0.4 (0-1.0) k/uL Eosinophils # 0.3 (0-0.7) k/uL Basophils # 0.0 (0-0.2) k/uL Urine Color Yellow Urine Appearance Cloudy H (Clear) Urine pH 6.0 (5.0-8.0) Ur Specific [place] 1.029 (1.001-1.035) Urine Protein 1+ H (Negative) Urine Glucose (UA) Negative (Negative) Urine Ketones Negative (Negative) Urine Blood Small H (Negative) Urine Nitrite Positive H (Negative) Urine Bilirubin Negative (Negative) Urine Urobilinogen <2.0 (<2.0) mg/dL Ur Leukocyte Esterase Large H (Negative) Urine RBC 22 H (0-5) /hpf Urine WBC >182 H (0-5) /hpf Urine WBC Clumps Occasional H (None) /hpf Ur Squamous Epith Cells 4 (0-4) /hpf Urine Bacteria Occasional H (None) /hpf Urine Mucus Occasional H (None) /hpf Urine HCG, Qual Not Detected (Not Detectd) Disposition Is patient prescribed a controlled substance at d/c from ED?: No Time of Disposition: 17:22 <Chuck Tamez - Last Filed: 12/13/18 17:19> <Matilde Garcia - Last Filed: 12/14/18 00:33> Clinical Impression: Nausea and vomiting, Pyelonephritis Disposition: HOME SELF-CARE Condition: Stable Instructions (If sedation given, give patient instructions): Urinary Tract Infection in Women (ED) Additional Instructions: Please take prescribed medication as directed. Please follow with primary care. Patient emergency department if symptoms worsen. Prescriptions: Sulfamethox-Tmp 800-160Mg [Bactrim Ds] 1 each PO Q12HR #20 tab Ondansetron Odt [Zofran Odt] 4 mg PO Q8HR PRN #20 tab PRN Reason: Nausea Referrals: Aldair Bowen MD [Primary Care Provider] - 1-2 days
[2018-12-13] MEDS ORDERED: HYDROmorphone 0.5 MG/0.5 ML SYRINGE IVP STA (15:45)
[2018-12-13 15:52] LABS: Basophils % (A) 0 %; Eosinophils # (A) 0.3 k/uL (0-0.7); Eosinophils % (A) 5 %; HGB 12.2 gm/dL (11.4-16.0); Lymphocytes # (A) 2.2 k/uL (1.0-4.8); Lymphocytes % (A) 34 %; MCH 30.7 pg (25.0-35.0); MCHC 34.8 g/dL (31.0-37.0); MCV 88.4 fL (80.0-100.0); Mean Platelet Volume 5.6; Monocytes # (A) 0.4 k/uL (0-1.0); Monocytes % (A) 6 %; Neutrophils # (A) 3.5 k/uL (1.3-7.7); Neutrophils % (A) 54 %; Platelet Count 243 k/uL (150-450); RBC 3.97 m/uL (3.80-5.40); WBC 6.5 k/uL (3.8-10.6)
[2018-12-13 16:01] LABS: Appearance,Urine Cloudy (Clear); Bacteria,Urine Occasional /hpf; Bilirubin,Urine Negative (Negative); Blood,Urine Small (Negative); Color,Urine Yellow; Glucose,Urine (UA) Negative (Negative); Ketones,Urine Negative (Negative); Leukocyte Esterase,Urine Large (Negative); Mucus,Urine Occasional /hpf; Nitrite,Urine Positive (Negative); Protein,Urine 1+ (Negative); RBC,Urine 22 /hpf (0-5); Specific Gravity,Urine 1.029 (1.001-1.035); Squamous Epithelial Cell,Urine 4 /hpf (0-4); Urobilinogen,Urine <2.0 mg/dL (<2.0)
[2018-12-13] MEDS ORDERED: cefTRIAXone IN SWFI 1,000 MG/10 ML SYRINGE IVP STA (17:14)
[2018-12-13] MEDS ORDERED: SULFAMETH-TMP DS STARTER PACK 2 TAB BTL PO STA (17:15)
[2018-12-13 17:53] VITALS: BP 112/78; PULSE 78; RESP 18; TEMP 97.9
== END 2018-12-13 17:51 | disposition home or self-care (01) ==
LOC: EC 14:38
DX: N12 Tubulo-interstitial nephritis, not specified as acute or chronic (principal); G35 Multiple sclerosis; G89.29 Other chronic pain; F41.9 Anxiety disorder, unspecified; Z88.0 Allergy status to penicillin; Z88.1 Allergy status to other antibiotic agents; Z88.5 Allergy status to narcotic agent; Z88.6 Allergy status to analgesic agent; Z91.018 Allergy to other foods; Z79.891 Long term (current) use of opiate analgesic; Z79.899 Other long term (current) drug therapy; Z86.14 Personal history of Methicillin resistant Staphylococcus aureus infection; Z90.49 Acquired absence of other specified parts of digestive tract; Z53.20 Procedure and treatment not carried out because of patient's decision for unspecified reasons
CPT/HCPCS: 99284; 96374; 96375; 96361; 36415; 85025; 81001; 81025; 87086; 87077; 87186; J2405; J1170

== ENCOUNTER 2018-12-15 11:24 | Emergency (ER) | payer MEDICARE, OTHER ==
[2018-12-15] MEDS ORDERED: ONDANSETRON 4 MG/2 ML VIAL IVP STA (11:50)
[2018-12-15] MEDS ORDERED: SODIUM CHLORIDE 0.9% 1,000 ML IV STA (11:50)
[2018-12-15] MEDS ORDERED: KETOROLAC 30 MG/ML 1 ML VIAL IVP STA (11:57)
--- NOTE | 2018-12-15 12:28 | ED ---
Female Urogenital HPI - General Chief complaint: Urogenital Stated complaint: Vomiting Time Seen by Provider: 12/15/18 11:33 Source: patient Mode of arrival: ambulatory Limitations: no limitations - History of Present Illness Initial comments: Patient is a 33-year-old female presenting to the emergency Department with complaints of nausea, vomiting, abdominal pain has been ongoing for the past 3 days. Patient was in the ER 2 days ago for same complaint and was diagnosed with a UTI. Patient was started on Bactrim and was given Rocephin in the ER. Patient states she has tried to take the Bactrim however has been vomiting shortly after. Patient also admits to having a fever the last 2 days, although she is afebrile upon arrival. Patient states she has history of pyelonephritis. She is also having left-sided flank pain. Patient minutes to history of C- section, cholecystectomy, hysterectomy. Patient denies diarrhea. She has no other complaints at this time. Upon arrival to ER, vital signs are stable. - Related Data Home Medications Medication Instructions Recorded Confirmed HYDROcodone/APAP 10-325MG [[place] 1 tab PO QID 03/12/16 12/15/18 10-325] LORazepam [Ativan] 0.5 - 1 tab PO TID PRN 08/31/18 12/15/18 Previous Rx's Medication Instructions Recorded Naproxen Sodium [Aleve] 220 mg PO DAILY PRN #20 tablet 12/15/18 Ondansetron Odt [Zofran Odt] 4 mg PO Q8HR PRN #10 tab 12/15/18 Allergies Allergy/AdvReac Type Severity Reaction Status Date / Time ketorolac tromethamine Allergy Rash/Hives Verified 12/15/18 13:05 [From Toradol] levofloxacin [From Levaquin] Allergy Rash/Hives Verified 12/15/18 13:05 morphine Allergy Rash/Hives Verified 12/15/18 13:05 Penicillins Allergy Rash/Hives Verified 12/15/18 13:05 propoxyphene napsylate Allergy Rash/Hives Verified 12/15/18 13:05 [From Darvocet-N 100] tramadol Allergy Rash/Hives Verified 12/15/18 13:05 aspirin AdvReac Nausea & Verified 12/15/18 13:05 Vomiting tomato AdvReac Unknown Verified 12/15/18 13:05 Review of Systems ROS Statement: Those systems with pertinent positive or pertinent negative responses have been documented in the HPI. ROS Other: All systems not noted in ROS Statement are negative. Past Medical History Past Medical History: CVA/TIA Additional Past Medical History / Comment(s): pyelonephritis, ADD, chronic back pain, MS, factor 12 deficiency, abdominal pain, vomiting History of Any Multi-Drug Resistant Organisms: ESBL, MRSA Date of last positivie culture/infection: 01/14/15-ESBL E.coli; 10/29/05-MRSA MDRO Source:: ESBL Urine; MRSA armpit Past Surgical History: Section, Cholecystectomy, Hysterectomy, Joint Replacement Additional Past Surgical History / Comment(s): Left knee replacement, Past Anesthesia/Blood Transfusion Reactions: No Reported Reaction Past Psychological History: ADD/ADHD, Anxiety Smoking Status: Never smoker Past Alcohol Use History: None Reported Past Drug Use History: None Reported - Past Family History Father History Unknown: Yes Additional Family Medical History / Comment(s): from aneurysm 5 years after Mother History Unknown: Yes Additional Family Medical History / Comment(s): from aneurysm and cancer at age 58 General Exam - General Exam Comments Initial Comments: GENERAL: Well-appearing, mild distress secondary to pain. HEAD: Atraumatic, normocephalic. EYES: Pupils equal round and reactive to light, extraocular movements intact, sclera anicteric, conjunctiva are normal. ENT: Nares patent, oropharynx clear without exudates. Moist mucous membranes. NECK: Normal range of motion, supple without lymphadenopathy or JVD. LUNGS: Breath sounds clear to auscultation bilaterally and equal. No wheezes rales or rhonchi. HEART: Regular rate and rhythm without murmurs, rubs or gallops. ABDOMEN: Tender to palpation of the suprapubic area and right and left lower quadrants. Positive left flank pain. Soft, normoactive bowel sounds. No masses appreciated. : Deferred EXTREMITIES: Normal range of motion, no pitting or edema. No clubbing or cyanosis. NEUROLOGICAL: Cranial nerves II through XII grossly intact. Normal speech, normal gait. PSYCH: Normal mood, normal affect. SKIN: Warm, Dry, normal turgor, no rashes or lesions noted. Limitations: no limitations Course Vital Signs 12/15/18 12/15/18 11:26 14:25 Temperature 98.6 F 99.9 F H Pulse Rate 104 H 77 Respiratory 20 18 Rate Blood Pressure 127/82 136/95 O2 Sat by Pulse 98 97 Oximetry Medical Decision Making - Medical Decision Making Patient is a 33-year-old female presenting with increase nausea and vomiting with diagnosed UTI 2 days ago. Patient was in the ER 2 days ago for same complaint. Patient was given Rocephin and started on Bactrim. Patient states she has been nauseous and vomiting is afraid antibiotic is not working. CBC, CMP are within normal limits. UA shows improvement of UTI with negative nitrate today. Patient was given fluids as well as Toradol and Zofran for symptom relief. Discussed with patient that she should continue with the Bactrim. Urine culture is still pending. Patient is requesting Dilantin for pain, however I informed her this is not necessary for UTI. Ultrasound of the kidneys shows no hydronephrosis. Kidney stone in the left mid pole. Patient is stable for discharge at this time. Patient was given prescription for additional Zofran. Return parameters were discussed with the patient she verbalized understanding. Case discussed with Dr. Yarbrough. - Lab Data Result diagrams: 12/15/18 12:10 12/15/18 12:10 Lab Results 12/15/18 12/15/18 12/15/18 Range/Units 12:10 12:10 12:10 WBC 7.6 (3.8-10.6) k/uL RBC 4.18 (3.80-5.40) m/uL Hgb 12.7 (11.4-16.0) gm/dL Hct 36.6 (34.0-46.0) % MCV 87.5 (80.0-100.0) fL MCH 30.4 (25.0-35.0) pg MCHC 34.8 (31.0-37.0) g/dL RDW 13.0 (11.5-15.5) % Plt Count 286 (150-450) k/uL Neutrophils % 79 % Lymphocytes % 15 % Monocytes % 3 % Eosinophils % 1 % Basophils % 0 % Neutrophils # 6.0 (1.3-7.7) k/uL Lymphocytes # 1.2 (1.0-4.8) k/uL Monocytes # 0.2 (0-1.0) k/uL Eosinophils # 0.1 (0-0.7) k/uL Basophils # 0.0 (0-0.2) k/uL Sodium 143 (137-145) mmol/L Potassium 3.9 (3.5-5.1) mmol/L Chloride 105 (98-107) mmol/L Carbon Dioxide 28 (22-30) mmol/L Anion Gap 10 mmol/L BUN 7 (7-17) mg/dL Creatinine 0.54 (0.52-1.04) mg/dL Est GFR (CKD-EPI)AfAm >90 (>60 ml/min/1.73 sqM) Est GFR (CKD-EPI)NonAf >90 (>60 ml/min/1.73 sqM) Glucose 110 H (74-99) mg/dL Calcium 9.9 (8.4-10.2) mg/dL Total Bilirubin 0.7 (0.2-1.3) mg/dL AST 30 (14-36) U/L ALT 27 (9-52) U/L Alkaline Phosphatase 71 (38-126) U/L Total Protein 8.7 H (6.3-8.2) g/dL Albumin 4.8 (3.5-5.0) g/dL Urine Color Urine Appearance (Clear) Urine pH (5.0-8.0) Ur Specific [place] (1.001-1.035) Urine Protein (Negative) Urine Glucose (UA) (Negative) Urine Ketones (Negative) Urine Blood (Negative) Urine Nitrite (Negative) Urine Bilirubin (Negative) Urine Urobilinogen (<2.0) mg/dL Ur Leukocyte Esterase (Negative) Urine WBC (0-5) /hpf Ur Squamous Epith Cells (0-4) /hpf Urine Bacteria (None) /hpf Urine Mucus (None) /hpf Urine HCG, Qual Not Detected (Not Detectd) 12/15/18 Range/Units 12:10 WBC (3.8-10.6) k/uL RBC (3.80-5.40) m/uL Hgb (11.4-16.0) gm/dL Hct (34.0-46.0) % MCV (80.0-100.0) fL MCH (25.0-35.0) pg MCHC (31.0-37.0) g/dL RDW (11.5-15.5) % Plt Count (150-450) k/uL Neutrophils % % Lymphocytes % % Monocytes % % Eosinophils % % Basophils % % Neutrophils # (1.3-7.7) k/uL Lymphocytes # (1.0-4.8) k/uL Monocytes # (0-1.0) k/uL Eosinophils # (0-0.7) k/uL Basophils # (0-0.2) k/uL Sodium (137-145) mmol/L Potassium (3.5-5.1) mmol/L Chloride (98-107) mmol/L Carbon Dioxide (22-30) mmol/L Anion Gap mmol/L BUN (7-17) mg/dL Creatinine (0.52-1.04) mg/dL Est GFR (CKD-EPI)AfAm (>60 ml/min/1.73 sqM) Est GFR (CKD-EPI)NonAf (>60 ml/min/1.73 sqM) Glucose (74-99) mg/dL Calcium (8.4-10.2) mg/dL Total Bilirubin (0.2-1.3) mg/dL AST (14-36) U/L ALT (9-52) U/L Alkaline Phosphatase (38-126) U/L Total Protein (6.3-8.2) g/dL Albumin (3.5-5.0) g/dL Urine Color Light Yellow Urine Appearance Cloudy H (Clear) Urine pH 7.5 (5.0-8.0) Ur Specific [place] 1.010 (1.001-1.035) Urine Protein Negative (Negative) Urine Glucose (UA) Negative (Negative) Urine Ketones Negative (Negative) Urine Blood Trace H (Negative) Urine Nitrite Negative (Negative) Urine Bilirubin Negative (Negative) Urine Urobilinogen <2.0 (<2.0) mg/dL Ur Leukocyte Esterase Large H (Negative) Urine WBC >182 H (0-5) /hpf Ur Squamous Epith Cells <1 (0-4) /hpf Urine Bacteria Rare H (None) /hpf Urine Mucus Rare H (None) /hpf Urine HCG, Qual (Not Detectd) Disposition Clinical Impression: Urinary tract infection, Nausea & vomiting Disposition: HOME SELF-CARE Condition: Stable Instructions (If sedation given, give patient instructions): Urinary Tract Infection in Women (ED) Additional Instructions: Please return to the Emergency Department if symptoms worsen or any other concerns. Continue with antibiotics as discussed. Use Zofran as needed for nausea. Take Motrin for pain relief. Prescriptions: Naproxen Sodium [Aleve] 220 mg PO DAILY PRN #20 tablet PRN Reason: Pain Ondansetron Odt [Zofran Odt] 4 mg PO Q8HR PRN #10 tab PRN Reason: Nausea Is patient prescribed a controlled substance at d/c from ED?: No Referrals: Aldair Bowen MD [Primary Care Provider] - 1-2 days
[2018-12-15 12:34] LABS: Appearance,Urine Cloudy (Clear); Bacteria,Urine Rare /hpf; Bilirubin,Urine Negative (Negative); Blood,Urine Trace (Negative); Color,Urine Light Yellow; Glucose,Urine (UA) Negative (Negative); Ketones,Urine Negative (Negative); Leukocyte Esterase,Urine Large (Negative); Mucus,Urine Rare /hpf; Nitrite,Urine Negative (Negative); PH, Urine 7.5 (5.0-8.0); Protein,Urine Negative (Negative); Squamous Epithelial Cell,Urine <1 /hpf (0-4); Urobilinogen,Urine <2.0 mg/dL (<2.0)
[2018-12-15 12:38] LABS: African American GFR (CKD) >90 (>60 ml/min/1.73 sqM); Albumin 4.8 g/dL (3.5-5.0); Anion Gap 10 mmol/L; Blood Urea Nitrogen 7 mg/dL (7-17); Calcium 9.9 mg/dL (8.4-10.2); Carbon Dioxide 28 mmol/L (22-30); Chloride 105 mmol/L (98-107); Glucose 110 mg/dL (74-99); Sodium 143 mmol/L (137-145); Total Bilirubin 0.7 mg/dL (0.2-1.3); Total Protein 8.7 g/dL (6.3-8.2)
[2018-12-15 12:45] LABS: AST 30 U/L (14-36); Potassium 3.9 mmol/L (3.5-5.1)
[2018-12-15 12:46] LABS: ALT 27 U/L (9-52); Alkaline Phosphatase 71 U/L (38-126)
[2018-12-15 12:49] LABS: Basophils % (A) 0 %; Eosinophils # (A) 0.1 k/uL (0-0.7); Eosinophils % (A) 1 %; HCT 36.6 % (34.0-46.0); HGB 12.7 gm/dL (11.4-16.0); Lymphocytes # (A) 1.2 k/uL (1.0-4.8); Lymphocytes % (A) 15 %; MCH 30.4 pg (25.0-35.0); MCHC 34.8 g/dL (31.0-37.0); MCV 87.5 fL (80.0-100.0); Mean Platelet Volume 5.9; Monocytes # (A) 0.2 k/uL (0-1.0); Monocytes % (A) 3 %; Neutrophils % (A) 79 %; Platelet Count 286 k/uL (150-450); RBC 4.18 m/uL (3.80-5.40); WBC 7.6 k/uL (3.8-10.6)
--- NOTE | 2018-12-15 13:36 | US ---
EXAMINATION TYPE: US kidneys/renal and bladder DATE OF EXAM: 12/15/2018 COMPARISON: CT 08/31/2018, US 10/05/2017 CLINICAL HISTORY: left flank pain, +UTI. Pelvic pain, UTI, hematuria, history of kidney cysts and kid lelia stones EXAM MEASUREMENTS: Right Kidney: 10.6 x 4.5 x 5.5 cm Left Kidney: 10.3 x 4.6 x 4.8 cm Right Kidney: no hydronephrosis or masses seen, inferior pole limited by overlying bowel gas Left Kidney: 0.7cm echogenic focus mid pole, 2.1 x 1.8 x 1.7cm cystic area mid pole Bladder: wnl Bilateral Jets seen: left jet seen, right jet not seen There is no evidence for hydronephrosis at this point in time. The urinary bladder is anechoic. Bila teral ureteral jets are not seen. IMPRESSION: No hydronephrosis of either kidney. Nephrolithiasis is seen on the left as well as a cyst ic lesion measuring 2.1 cm that is somewhat suboptimally viewed.
[2018-12-15 14:27] VITALS: BP 136/95; PULSE 77; RESP 18; TEMP 99.9
== END 2018-12-15 14:27 | disposition home or self-care (01) ==
LOC: EC 11:24
DX: N39.0 Urinary tract infection, site not specified (principal); R11.2 Nausea with vomiting, unspecified; N20.0 Calculus of kidney; Z86.14 Personal history of Methicillin resistant Staphylococcus aureus infection; Z86.73 Personal history of transient ischemic attack (TIA), and cerebral infarction without residual deficits; Z90.49 Acquired absence of other specified parts of digestive tract; Z90.710 Acquired absence of both cervix and uterus; Z96.652 Presence of left artificial knee joint; Z98.890 Other specified postprocedural states; Z79.891 Long term (current) use of opiate analgesic; Z88.0 Allergy status to penicillin; Z88.1 Allergy status to other antibiotic agents; Z88.5 Allergy status to narcotic agent; Z88.6 Allergy status to analgesic agent; Z91.018 Allergy to other foods
CPT/HCPCS: 36415; 80053; 85025; 81001; 81025; 87086; 76770; 99284; 96374; 96375; J2405; J1885

== ENCOUNTER 2019-02-01 17:11 | Emergency (ER) | payer MEDICARE, OTHER ==
[2019-02-01] MEDS ORDERED: PANTOPRAZOLE 40 MG/10 ML VIAL IVP STA (17:41)
[2019-02-01] MEDS ORDERED: SODIUM CHLORIDE 0.9% 1,000 ML IV STA (17:41)
--- NOTE | 2019-02-01 17:41 | ED ---
General Adult HPI - General Chief complaint: Recheck/Abnormal Lab/Rx Stated complaint: Kidney infection Time Seen by Provider: 02/01/19 17:28 Source: patient Mode of arrival: ambulatory Limitations: no limitations - History of Present Illness Initial comments: Patient is a 33-year-old female with history of recurrent UTIs presenting to emergency Department with a chief complaint of a possible UTI. Patient reports this one feels very much like her other UTIs. She developed sudden onset of nausea vomiting abdominal pain since yesterday. She reports suprapubic tenderness that radiates along the flank region to the lower back. Patient does report increased urgency frequency and dysuria but denies hematuria, hematochezia or melena. Patient states that she had chills but never actually obtained a temperature. Denies chest pain shortness of breath. - Related Data Home Medications Medication Instructions Recorded Confirmed HYDROcodone/APAP 10-325MG [[place] 1 tab PO QID 03/12/16 12/15/18 10-325] LORazepam [Ativan] 0.5 - 1 tab PO TID PRN 08/31/18 12/15/18 Previous Rx's Medication Instructions Recorded Naproxen Sodium [Aleve] 220 mg PO DAILY PRN #20 tablet 12/15/18 Ondansetron Odt [Zofran Odt] 4 mg PO Q8HR PRN #10 tab 12/15/18 Cephalexin [Keflex] 500 mg PO Q6HR #40 cap 02/01/19 Ondansetron Odt [Zofran Odt] 4 mg PO Q8HR PRN #10 tab 02/01/19 Allergies Allergy/AdvReac Type Severity Reaction Status Date / Time ketorolac tromethamine Allergy Rash/Hives Verified 02/01/19 17:24 [From Toradol] levofloxacin [From Levaquin] Allergy Rash/Hives Verified 02/01/19 17:24 morphine Allergy Rash/Hives Verified 02/01/19 17:24 Penicillins Allergy Rash/Hives Verified 02/01/19 17:24 propoxyphene napsylate Allergy Rash/Hives Verified 02/01/19 17:24 [From Darvocet-N 100] tramadol Allergy Rash/Hives Verified 02/01/19 17:24 aspirin AdvReac Nausea & Verified 02/01/19 17:24 Vomiting tomato AdvReac Unknown Verified 02/01/19 17:24 Review of Systems ROS Statement: Those systems with pertinent positive or pertinent negative responses have been documented in the HPI. ROS Other: All systems not noted in ROS Statement are negative. Past Medical History Past Medical History: CVA/TIA Additional Past Medical History / Comment(s): pyelonephritis, ADD, chronic back pain, MS, factor 12 deficiency, abdominal pain, vomiting History of Any Multi-Drug Resistant Organisms: ESBL, MRSA Date of last positivie culture/infection: 01/14/15-ESBL E.coli; 10/29/05-MRSA MDRO Source:: ESBL Urine; MRSA armpit Past Surgical History: Section, Cholecystectomy, Hysterectomy, Joint Replacement Additional Past Surgical History / Comment(s): Left knee replacement, Past Anesthesia/Blood Transfusion Reactions: No Reported Reaction Past Psychological History: ADD/ADHD, Anxiety Smoking Status: Never smoker Past Alcohol Use History: None Reported Past Drug Use History: None Reported - Past Family History Father History Unknown: Yes Additional Family Medical History / Comment(s): from aneurysm 5 years after Mother History Unknown: Yes Additional Family Medical History / Comment(s): from aneurysm and cancer at age 58 General Exam Limitations: no limitations General appearance: alert, in no apparent distress, obese Head exam: Present: atraumatic, normocephalic, normal inspection Eye exam: Present: normal appearance, PERRL, EOMI, other (Strabismus ) Pupils: Present: normal accommodation ENT exam: Present: normal exam, mucous membranes moist Neck exam: Present: normal inspection, full ROM Respiratory exam: Present: normal lung sounds bilaterally Cardiovascular Exam: Present: regular rate, normal rhythm, normal heart sounds GI/Abdominal exam: Present: soft, tenderness (Suprapubic tenderness), normal bowel sounds. Absent: distended, guarding, rebound, rigid Extremities exam: Present: normal inspection, full ROM, normal capillary refill Back exam: Present: normal inspection, full ROM, CVA tenderness (R) (More right tenderness versus left), CVA tenderness (L). Absent: paraspinal tenderness, vertebral tenderness Neurological exam: Present: alert, oriented X3 Psychiatric exam: Present: normal affect, normal mood Skin exam: Present: warm, dry, intact, normal color Course Vital Signs 02/01/19 02/01/19 17:22 19:34 Temperature 98.2 F 98.3 F Pulse Rate 68 71 Respiratory 18 16 Rate Blood Pressure 132/85 128/70 O2 Sat by Pulse 99 100 Oximetry Medical Decision Making - Medical Decision Making Patient is a 33-year-old female with history of recurrent UTIs is presenting to emergency part with a chief complaint of a possible UTI. Exam shows suprapubic tenderness and right CVA tenderness more versus left. UA is positive for urinary tract infection. Patient did have any fevers or chills. Patient treated with fluids, analgesia and antiemetics. Patient will be treated with Keflex for 10 days and given a single dose of Rocephin here. Strict return parameters were thoroughly discussed with patient was understanding and agreeable. Patient advised to follow-up with a urologist for the recurrent UTIs. Case discussed with physician. - Lab Data Result diagrams: 02/01/19 17:55 02/01/19 17:55 Lab Results 02/01/19 02/01/19 02/01/19 Range/Units 17:30 17:55 17:55 WBC 10.5 (3.8-10.6) k/uL RBC 4.17 (3.80-5.40) m/uL Hgb 12.4 (11.4-16.0) gm/dL Hct 37.4 (34.0-46.0) % MCV 89.6 (80.0-100.0) fL MCH 29.7 (25.0-35.0) pg MCHC 33.1 (31.0-37.0) g/dL RDW 13.3 (11.5-15.5) % Plt Count 282 (150-450) k/uL Neutrophils % 73 % Lymphocytes % 19 % Monocytes % 4 % Eosinophils % 2 % Basophils % 0 % Neutrophils # 7.7 (1.3-7.7) k/uL Lymphocytes # 2.0 (1.0-4.8) k/uL Monocytes # 0.4 (0-1.0) k/uL Eosinophils # 0.2 (0-0.7) k/uL Basophils # 0.0 (0-0.2) k/uL Sodium 138 (137-145) mmol/L Potassium 5.2 H (3.5-5.1) mmol/L Chloride 104 (98-107) mmol/L Carbon Dioxide 24 (22-30) mmol/L Anion Gap 10 mmol/L BUN 13 (7-17) mg/dL Creatinine 0.60 (0.52-1.04) mg/dL Est GFR (CKD-EPI)AfAm >90 (>60 ml/min/1.73 sqM) Est GFR (CKD-EPI)NonAf >90 (>60 ml/min/1.73 sqM) Glucose 96 (74-99) mg/dL Calcium 9.4 (8.4-10.2) mg/dL Total Bilirubin 0.7 (0.2-1.3) mg/dL AST 35 (14-36) U/L ALT 21 (9-52) U/L Alkaline Phosphatase 80 (38-126) U/L Total Protein 7.7 (6.3-8.2) g/dL Albumin 4.6 (3.5-5.0) g/dL Amylase 60 (30-110) U/L Lipase 43 (23-300) U/L Urine Color Yellow Urine Appearance Cloudy H (Clear) Urine pH 6.5 (5.0-8.0) Ur Specific [place] 1.017 (1.001-1.035) Urine Protein Negative (Negative) Urine Glucose (UA) Negative (Negative) Urine Ketones Negative (Negative) Urine Blood Negative (Negative) Urine Nitrite Positive H (Negative) Urine Bilirubin Negative (Negative) Urine Urobilinogen <2.0 (<2.0) mg/dL Ur Leukocyte Esterase Moderate H (Negative) Urine RBC 3 (0-5) /hpf Urine WBC 28 H (0-5) /hpf Ur Squamous Epith Cells <1 (0-4) /hpf Amorphous Sediment Rare H (None) /hpf Urine Bacteria Occasional H (None) /hpf Urine Mucus Rare H (None) /hpf Disposition Clinical Impression: Urinary tract infection Disposition: HOME SELF-CARE Condition: Stable Instructions (If sedation given, give patient instructions): Kidney Infection (ED) Additional Instructions: Please take prescribed medication as directed. Please follow with primary care. Please return to emergency department if symptoms worsen. Prescriptions: Cephalexin [Keflex] 500 mg PO Q6HR #40 cap Ondansetron Odt [Zofran Odt] 4 mg PO Q8HR PRN #10 tab PRN Reason: Nausea Is patient prescribed a controlled substance at d/c from ED?: No Referrals: Chevy Overton MD [Primary Care Provider] - 1-2 days Time of Disposition: 19:21
[2019-02-01] MEDS ORDERED: HYDROmorphone 0.5 MG/0.5 ML SYRINGE IVP STA (17:42)
[2019-02-01 18:01] LABS: Amorphous Sediment,Urine Rare /hpf; Appearance,Urine Cloudy (Clear); Bacteria,Urine Occasional /hpf; Bilirubin,Urine Negative (Negative); Blood,Urine Negative (Negative); Color,Urine Yellow; Glucose,Urine (UA) Negative (Negative); Ketones,Urine Negative (Negative); Leukocyte Esterase,Urine Moderate (Negative); Mucus,Urine Rare /hpf; Nitrite,Urine Positive (Negative); PH, Urine 6.5 (5.0-8.0); Protein,Urine Negative (Negative); RBC,Urine 3 /hpf (0-5); Specific Gravity,Urine 1.017 (1.001-1.035); Squamous Epithelial Cell,Urine <1 /hpf (0-4); Urobilinogen,Urine <2.0 mg/dL (<2.0); WBC,Urine 28 /hpf (0-5)
[2019-02-01 18:15] LABS: Basophils % (A) 0 %; Eosinophils # (A) 0.2 k/uL (0-0.7); Eosinophils % (A) 2 %; HCT 37.4 % (34.0-46.0); HGB 12.4 gm/dL (11.4-16.0); Lymphocytes % (A) 19 %; MCH 29.7 pg (25.0-35.0); MCHC 33.1 g/dL (31.0-37.0); MCV 89.6 fL (80.0-100.0); Mean Platelet Volume 6.5; Monocytes # (A) 0.4 k/uL (0-1.0); Monocytes % (A) 4 %; Neutrophils # (A) 7.7 k/uL (1.3-7.7); Neutrophils % (A) 73 %; Platelet Count 282 k/uL (150-450); RBC 4.17 m/uL (3.80-5.40); RDW 13.3 % (11.5-15.5); WBC 10.5 k/uL (3.8-10.6)
[2019-02-01 18:35] LABS: ALT 21 U/L (9-52); AST 35 U/L (14-36); African American GFR (CKD) >90 (>60 ml/min/1.73 sqM); Albumin 4.6 g/dL (3.5-5.0); Alkaline Phosphatase 80 U/L (38-126); Amylase 60 U/L (30-110); Anion Gap 10 mmol/L; Blood Urea Nitrogen 13 mg/dL (7-17); Calcium 9.4 mg/dL (8.4-10.2); Carbon Dioxide 24 mmol/L (22-30); Chloride 104 mmol/L (98-107); Glucose 96 mg/dL (74-99); Non-African American GFR(CKD) >90 (>60 ml/min/1.73 sqM); Sodium 138 mmol/L (137-145); Total Bilirubin 0.7 mg/dL (0.2-1.3); Total Protein 7.7 g/dL (6.3-8.2)
[2019-02-01 18:38] LABS: Potassium 5.2 mmol/L (3.5-5.1)
[2019-02-01] MEDS ORDERED: cefTRIAXone 1,000 MG VIAL (IM USE) IM STA (19:19)
[2019-02-01] MEDS ORDERED: ONDANSETRON 4 MG ODT STARTER PACK 2 TAB BTL PO STA (19:20)
[2019-02-01 19:37] VITALS: BP 128/70; PULSE 71; RESP 16; TEMP 98.3
== END 2019-02-01 19:34 | disposition home or self-care (01) ==
LOC: EC 17:11
DX: N39.0 Urinary tract infection, site not specified (principal); H50.9 Unspecified strabismus; G89.29 Other chronic pain; M54.9 Dorsalgia, unspecified; Z79.891 Long term (current) use of opiate analgesic; Z88.6 Allergy status to analgesic agent; Z88.1 Allergy status to other antibiotic agents; Z88.5 Allergy status to narcotic agent; Z88.0 Allergy status to penicillin; Z88.8 Allergy status to other drugs, medicaments and biological substances; Z96.651 Presence of right artificial knee joint; Z90.49 Acquired absence of other specified parts of digestive tract; Z86.14 Personal history of Methicillin resistant Staphylococcus aureus infection; Z87.19 Personal history of other diseases of the digestive system
CPT/HCPCS: 36415; 80053; 82150; 83690; 85025; 81001; 87086; 99284; 96372; 96374; 96375; 96361; J0696; S0119; C9113; J1170; 87077; 87186

== ENCOUNTER → 2019-02-13 | Outpatient (CLI) | payer MEDICARE, OTHER ==
--- NOTE | 2019-02-13 14:17 | US ---
EXAMINATION TYPE: US renals and bladder DATE OF EXAM: 02/13/2019 COMPARISON: US 12/15/2018 & CT CLINICAL HISTORY: R10.9 flank pain. EXAM MEASUREMENTS: Right Kidney: 11.5 x 3.9 x 5.3 cm Left Kidney: 10.7 x 5.2 x 4.5 cm Right Kidney: No hydronephrosis or masses seen Left Kidney: midpole cyst measures 1.8 x 1.5 x 1.6 cm. This previously measured 2.1 x 1.8 x 1.7 cm on the exam of 12/15/2018 Bladder: wnl Bilateral Jets seen: Yes There is no evidence for hydronephrosis at this point in time. No nephrolithiasis is seen. The urina ry bladder is anechoic. Bilateral ureteral jets are seen. IMPRESSION: Left renal midpole cyst measures 1.8 cm. This appears slightly smaller than the prior of 12/15/2018. No hydronephrosis or nephrolithiasis of either kidney.
--- NOTE | 2019-02-13 17:49 | CT ---
EXAMINATION TYPE: CT brain wo/w con DATE OF EXAM: 02/13/2019 COMPARISON: 08/10/2016 INDICATION: Memory loss, right sided headache and pressure. DLP: 2327 mGycm, Automated exposure control for dose reduction was used. CONTRAST: 100 mL Isovue-300 CT of the brain is performed utilizing 3 mm thick sections through the posterior fossa and 3 mm thick sections through the remaining calvarium. Study is performed within 24 hours of arrival to the hosp [facility]. No abnormal hyperdensity is present to suggest an acute intracranial hemorrhage. No mass lesion is evident. No acute infarcts are evident. Ventricles and sulci are appropriate for the patient age. No abnormal enhancement is evident. There may be small amount of debris present within the dependent portion of the right maxillary sinus . Correlate for acute sinusitis. Remaining paranasal sinuses and mastoid air cells are clear. Note is made of some left septal deviation. IMPRESSIONS: 1. Normal pre and postcontrast CT brain. 2. Clinical correlation recommended for right maxillary sinusitis.
== END | disposition home or self-care (01) ==
LOC: RADUSWWP 12:40
PROVIDERS: ATTEND Family Medicine
DX: N28.1 Cyst of kidney, acquired (principal); H50.10 Unspecified exotropia; R41.3 Other amnesia; Z86.73 Personal history of transient ischemic attack (TIA), and cerebral infarction without residual deficits; Z88.0 Allergy status to penicillin; Z88.6 Allergy status to analgesic agent; Z88.1 Allergy status to other antibiotic agents
CPT/HCPCS: 76770; 70470; Q9967

== ENCOUNTER 2019-12-18 13:45 | Emergency (ER) | payer MEDICARE, OTHER ==
[2019-12-18 13:55] VITALS: TEMP 97.5
[2019-12-18] MEDS ORDERED: HYDROmorphone 1 MG/ML 1 ML SYRINGE IM STA (14:27)
--- NOTE | 2019-12-18 14:36 | ED ---
General Adult HPI - General Chief complaint: Urogenital Stated complaint: UTI, flank pain Time Seen by Provider: 12/18/19 14:01 Source: patient Mode of arrival: ambulatory Limitations: no limitations - History of Present Illness Initial comments: 34-year-old female patient presents to the emergency department today for evaluation of left flank pain. Patient states this is chronic has been going on for quite some time. Patient states that couple of weeks ago she was admitted to [facility] for kidney infection and was given IV antibiotics. States that she was discharged home on antibiotics and did complete all of her doses. Patient states over the last few days she has had the pain to the left flank return. States the pain gets worse when her bladder is full and does seem to improve when she empties her bladder. She denies any dysuria, hematuria, urinary urgency, urinary frequency. She does report having hysterectomy in the past denies chance of . States she is not currently sexually active and has no concerns for sexually transmitted infections. States that she has been having intermittent fever and chills, has not taken her temperature. Denies nausea or vomiting. Patient states that she has seen urology for this in the past and they have done testing and have been unable to find out what is wrong. She last saw geophysics professor about a year ago. Patient denies any recent rash, cough, shortness of breath, chest pain, diarrhea, constipation, numbness, tingling, dizziness, weakness, headache, visual changes, or any other complaints. - Related Data Home Medications Medication Instructions Recorded Confirmed HYDROcodone/APAP 10-325MG [Sigel 1 tab PO QID 03/12/16 12/15/18 10-325] LORazepam [Ativan] 0.5 - 1 tab PO TID PRN 08/31/18 12/15/18 Previous Rx's Medication Instructions Recorded Naproxen Sodium [Aleve] 220 mg PO DAILY PRN #20 tablet 12/15/18 Ondansetron Odt [Zofran Odt] 4 mg PO Q8HR PRN #10 tab 12/15/18 Cephalexin [Keflex] 500 mg PO Q6HR #40 cap 02/01/19 Ondansetron Odt [Zofran Odt] 4 mg PO Q8HR PRN #10 tab 02/01/19 Cephalexin [Keflex] 500 mg PO Q6HR #40 cap 12/18/19 Allergies Allergy/AdvReac Type Severity Reaction Status Date / Time ketorolac tromethamine Allergy Rash/Hives Verified 12/18/19 13:55 [From Toradol] levofloxacin [From Levaquin] Allergy Rash/Hives Verified 12/18/19 13:55 morphine Allergy Rash/Hives Verified 12/18/19 13:55 Penicillins Allergy Rash/Hives Verified 12/18/19 13:55 propoxyphene napsylate Allergy Rash/Hives Verified 12/18/19 13:55 [From Darvocet-N 100] tramadol Allergy Rash/Hives Verified 12/18/19 13:55 aspirin AdvReac Nausea & Verified 12/18/19 13:55 Vomiting tomato AdvReac Unknown Verified 12/18/19 13:55 Review of Systems ROS Statement: Those systems with pertinent positive or pertinent negative responses have been documented in the HPI. ROS Other: All systems not noted in ROS Statement are negative. Past Medical History Past Medical History: CVA/TIA Additional Past Medical History / Comment(s): pyelonephritis, ADD, chronic back pain, MS, factor 12 deficiency, abdominal pain, vomiting History of Any Multi-Drug Resistant Organisms: ESBL, MRSA Date of last positivie culture/infection: 01/14/15-ESBL E.coli; 10/29/05-MRSA MDRO Source:: ESBL Urine; MRSA armpit Past Surgical History: Section, Cholecystectomy, Hysterectomy, Joint Replacement Additional Past Surgical History / Comment(s): Left knee replacement, Past Anesthesia/Blood Transfusion Reactions: No Reported Reaction Past Psychological History: ADD/ADHD, Anxiety Smoking Status: Never smoker Past Alcohol Use History: None Reported Past Drug Use History: None Reported - Past Family History Father History Unknown: Yes Additional Family Medical History / Comment(s): from aneurysm 5 years after Mother History Unknown: Yes Additional Family Medical History / Comment(s): from aneurysm and cancer at age 58 General Exam Limitations: no limitations General appearance: alert, in no apparent distress, other (This is a well- developed, well-nourished adult female patient in no acute distress. Vital signs upon presentation are temperature 97.5F, pulse 94, respirations 20, blood pressure 129/81, pulse ox 99% on room air.) Respiratory exam: Present: normal lung sounds bilaterally. Absent: respiratory distress, wheezes, rales, rhonchi, stridor Cardiovascular Exam: Present: regular rate, normal rhythm, normal heart sounds. Absent: systolic murmur, diastolic murmur, rubs, gallop, clicks GI/Abdominal exam: Present: soft, normal bowel sounds. Absent: distended, tenderness, guarding, rebound, rigid Back exam: Present: normal inspection, CVA tenderness (L). Absent: CVA tenderness (R) Neurological exam: Present: alert, oriented X3, CN II-XII intact Psychiatric exam: Present: normal affect, normal mood Skin exam: Present: warm, dry, intact, normal color. Absent: rash Course Vital Signs 12/18/19 12/18/19 13:52 15:16 Temperature 97.5 F L Pulse Rate 94 81 Respiratory 20 16 Rate Blood Pressure 129/81 132/86 O2 Sat by Pulse 99 99 Oximetry Medical Decision Making - Medical Decision Making 34-year-old female patient presents to the emergency department today for evaluation of left flank pain and urinary symptoms. Patient has had chronic left flank pain for the last couple of years. Physical examination did reveal left CVA tenderness or she is afebrile. No vomiting. We did perform urinalysis which did show evidence for urinary tract infection. We'll start Keflex. She'll be discharged to follow-up with urology and her geophysics professor. Return parameters were discussed in detail. She verbalizes understanding and she agrees with this plan. - Lab Data Lab Results 12/18/19 Range/Units 14:29 Urine Color Yellow Urine Appearance Cloudy H (Clear) Urine pH 6.0 (5.0-8.0) Ur Specific [place] 1.021 (1.001-1.035) Urine Protein 1+ H (Negative) Urine Glucose (UA) Negative (Negative) Urine Ketones Negative (Negative) Urine Blood Negative (Negative) Urine Nitrite Positive H (Negative) Urine Bilirubin Negative (Negative) Urine Urobilinogen <2.0 (<2.0) mg/dL Ur Leukocyte Esterase Large H (Negative) Urine RBC 4 (0-5) /hpf Urine WBC 40 H (0-5) /hpf Ur Squamous Epith Cells 3 (0-4) /hpf Urine Bacteria Few H (None) /hpf Hyaline Casts 7 H (0-2) /lpf Urine Mucus Moderate H (None) /hpf Disposition Clinical Impression: UTI (urinary tract infection) Disposition: HOME SELF-CARE Condition: Good Instructions (If sedation given, give patient instructions): Urinary Tract Infection in Women (ED) Additional Instructions: Increase fluids. Rest. Follow-up with your primary care physician for recheck in 1-2 days. Consider seeing a urologist. Make an appointment with her geophysics professor. Return to the emergency department immediately for any new, worsening, or concerning symptoms. Prescriptions: Cephalexin [Keflex] 500 mg PO Q6HR #40 cap Is patient prescribed a controlled substance at d/c from ED?: No Referrals: Omero Marquez MD [Primary Care Provider] - 1-2 days Time of Disposition: 15:15
[2019-12-18 14:59] LABS: Appearance,Urine Cloudy (Clear); Bacteria,Urine Few /hpf; Bilirubin,Urine Negative (Negative); Blood,Urine Negative (Negative); Color,Urine Yellow; Glucose,Urine (UA) Negative (Negative); Hyaline Casts,Urine 7 /lpf (0-2); Ketones,Urine Negative (Negative); Leukocyte Esterase,Urine Large (Negative); Mucus,Urine Moderate /hpf; Nitrite,Urine Positive (Negative); Protein,Urine 1+ (Negative); RBC,Urine 4 /hpf (0-5); Specific Gravity,Urine 1.021 (1.001-1.035); Squamous Epithelial Cell,Urine 3 /hpf (0-4); Urobilinogen,Urine <2.0 mg/dL (<2.0); WBC,Urine 40 /hpf (0-5)
[2019-12-18] MEDS ORDERED: CEPHALEXIN 500MG STARTER PACK 4 CAP BTL PO STA (15:15)
[2019-12-18 15:18] VITALS: BP 132/86; PULSE 81; RESP 16
== END 2019-12-18 15:27 | disposition home or self-care (01) ==
LOC: EC 13:45
DX: N39.0 Urinary tract infection, site not specified (principal); G89.29 Other chronic pain; M54.9 Dorsalgia, unspecified; F41.9 Anxiety disorder, unspecified; Z79.891 Long term (current) use of opiate analgesic; Z88.6 Allergy status to analgesic agent; Z88.5 Allergy status to narcotic agent; Z88.1 Allergy status to other antibiotic agents; Z88.0 Allergy status to penicillin; Z91.018 Allergy to other foods; Z90.710 Acquired absence of both cervix and uterus; Z90.49 Acquired absence of other specified parts of digestive tract; Z96.652 Presence of left artificial knee joint; Z86.73 Personal history of transient ischemic attack (TIA), and cerebral infarction without residual deficits
CPT/HCPCS: 81001; 87086; 99284; 96372; J1170

== ENCOUNTER 2019-12-29 12:56 | Emergency (ER) | payer MEDICARE, OTHER ==
[2019-12-29 13:08] VITALS: RESP 18
[2019-12-29] MEDS ORDERED: ACET/COD 300 MG/30 MG STARTER PACK 6 TAB BTL PO STA (13:27)
[2019-12-29] MEDS ORDERED: ONDANSETRON ODT 4 MG TAB PO STA (13:27)
--- NOTE | 2019-12-29 13:39 | ED ---
Abdominal Pain HPI - General Chief Complaint: Abdominal Pain Stated Complaint: abd pain Time Seen by Provider: 12/29/19 13:12 Source: patient, RN notes reviewed Mode of arrival: ambulatory Limitations: no limitations - History of Present Illness Initial Comments: This a 34-year-old female presents emergency department recheck of urinary tract infection. Patient states she was placed on Keflex recently for urinary tract infection in which she did finish her course of antibiotics. Patient states that she felt like the symptoms returned after. She has urinary frequency and dysuria. She states she has intermittent mild left flank pain no hematuria no fevers or chills she did have 1 episode nausea vomiting. Patient has chronic abdominal flank issues history kidney stones but states does not feel like a kidney stone. No chest pain or shortness breath. - Related Data Home Medications Medication Instructions Recorded Confirmed oxyCODONE-APAP 7.5-325MG [Percocet 1 tab PO TID PRN 12/29/19 12/29/19 7.5-325 mg] Previous Rx's Medication Instructions Recorded Ondansetron Odt [Zofran Odt] 4 mg PO Q8HR PRN #10 tab 12/15/18 Sulfamethox-Tmp 800-160Mg [Bactrim 1 each PO Q12HR #28 tab 12/29/19 Ds] Allergies Allergy/AdvReac Type Severity Reaction Status Date / Time ketorolac tromethamine Allergy Rash/Hives Verified 12/29/19 13:41 [From Toradol] levofloxacin [From Levaquin] Allergy Rash/Hives Verified 12/29/19 13:41 morphine Allergy Rash/Hives Verified 12/29/19 13:41 Penicillins Allergy Rash/Hives Verified 12/29/19 13:41 propoxyphene napsylate Allergy Rash/Hives Verified 12/29/19 13:41 [From Darvocet-N 100] tramadol Allergy Rash/Hives Verified 12/29/19 13:41 aspirin AdvReac Nausea & Verified 12/29/19 13:41 Vomiting tomato AdvReac Unknown Verified 12/29/19 13:41 Review of Systems ROS Statement: Those systems with pertinent positive or pertinent negative responses have been documented in the HPI. ROS Other: All systems not noted in ROS Statement are negative. Past Medical History Past Medical History: CVA/TIA Additional Past Medical History / Comment(s): pyelonephritis, ADD, chronic back pain, MS, factor 12 deficiency, abdominal pain, vomiting History of Any Multi-Drug Resistant Organisms: ESBL, MRSA Date of last positivie culture/infection: 01/14/15-ESBL E.coli; 10/29/05-MRSA MDRO Source:: ESBL Urine; MRSA armpit Past Surgical History: Section, Cholecystectomy, Hysterectomy, Joint Replacement Additional Past Surgical History / Comment(s): Left knee replacement, Past Anesthesia/Blood Transfusion Reactions: No Reported Reaction Past Psychological History: ADD/ADHD, Anxiety Smoking Status: Never smoker Past Alcohol Use History: None Reported Past Drug Use History: None Reported - Past Family History Father History Unknown: Yes Additional Family Medical History / Comment(s): from aneurysm 5 years after Mother History Unknown: Yes Additional Family Medical History / Comment(s): from aneurysm and cancer at age 58 General Exam Limitations: no limitations General appearance: alert, in no apparent distress Head exam: Present: atraumatic, normocephalic, normal inspection Eye exam: Present: normal appearance, PERRL, EOMI. Absent: scleral icterus, conjunctival injection, periorbital swelling ENT exam: Present: mucous membranes moist, TM's normal bilaterally. Absent: normal exam, normal oropharynx (No dentition) Neck exam: Present: normal inspection, full ROM. Absent: tenderness, meningismus, lymphadenopathy Respiratory exam: Present: normal lung sounds bilaterally. Absent: respiratory distress, wheezes, rales, rhonchi, stridor Cardiovascular Exam: Present: regular rate, normal rhythm, normal heart sounds. Absent: systolic murmur, diastolic murmur, rubs, gallop, clicks GI/Abdominal exam: Present: soft, tenderness (Mild suprapubic), normal bowel sounds. Absent: distended, guarding, rebound, rigid Back exam: Present: CVA tenderness (L) (Minimal). Absent: CVA tenderness (R) Neurological exam: Present: alert Skin exam: Present: warm, dry, intact, normal color. Absent: rash Course Vital Signs 12/29/19 13:05 Temperature 97.9 F Pulse Rate 85 Respiratory 18 Rate Blood Pressure 120/71 O2 Sat by Pulse 100 Oximetry Medical Decision Making - Medical Decision Making 34-year-old presented for dysuria. Patient has evidence of urinary tract infection. Prior culture show susceptibility to Bactrim. Patient placed on antibiotics. Patient advised follow-up with urology, discuss reasons for recurrent urinary tract infections patient became angry demanding pain meds, refuses IM antibiotics - Lab Data Lab Results 12/29/19 Range/Units 13:21 Urine Color Yellow Urine Appearance Cloudy H (Clear) Urine pH 5.5 (5.0-8.0) Ur Specific [place] 1.021 (1.001-1.035) Urine Protein Negative (Negative) Urine Glucose (UA) Negative (Negative) Urine Ketones Negative (Negative) Urine Blood Negative (Negative) Urine Nitrite Positive H (Negative) Urine Bilirubin Negative (Negative) Urine Urobilinogen <2.0 (<2.0) mg/dL Ur Leukocyte Esterase Moderate H (Negative) Urine RBC 3 (0-5) /hpf Urine WBC 50 H (0-5) /hpf Ur Squamous Epith Cells 12 H (0-4) /hpf Urine Bacteria Occasional H (None) /hpf Hyaline Casts 1 (0-2) /lpf Urine Mucus Rare H (None) /hpf Disposition Clinical Impression: UTI (urinary tract infection) Disposition: HOME SELF-CARE Condition: Stable Instructions (If sedation given, give patient instructions): Urinary Tract Infection in Women (ED) Additional Instructions: Please return to the Emergency Department if symptoms worsen or any other concerns. Prescriptions: Sulfamethox-Tmp 800-160Mg [Bactrim Ds] 1 each PO Q12HR #28 tab Is patient prescribed a controlled substance at d/c from ED?: No Referrals: Omero Marquez MD [Primary Care Provider] - 1-2 days Cedric Brandt MD [STAFF PHYSICIAN] - 1-2 days Time of Disposition: 14:55
[2019-12-29 13:40] LABS: Appearance,Urine Cloudy (Clear); Bacteria,Urine Occasional /hpf; Bilirubin,Urine Negative (Negative); Blood,Urine Negative (Negative); Color,Urine Yellow; Glucose,Urine (UA) Negative (Negative); Hyaline Casts,Urine 1 /lpf (0-2); Ketones,Urine Negative (Negative); Leukocyte Esterase,Urine Moderate (Negative); Mucus,Urine Rare /hpf; Nitrite,Urine Positive (Negative); PH, Urine 5.5 (5.0-8.0); Protein,Urine Negative (Negative); RBC,Urine 3 /hpf (0-5); Specific Gravity,Urine 1.021 (1.001-1.035); Squamous Epithelial Cell,Urine 12 /hpf (0-4); Urobilinogen,Urine <2.0 mg/dL (<2.0); WBC,Urine 50 /hpf (0-5)
[2019-12-29 15:04] VITALS: BP 124/84; PULSE 70; TEMP 98
== END 2019-12-29 15:04 | disposition home or self-care (01) ==
LOC: EC 12:56
DX: N39.0 Urinary tract infection, site not specified (principal); G89.29 Other chronic pain; M54.9 Dorsalgia, unspecified; Z88.6 Allergy status to analgesic agent; Z88.1 Allergy status to other antibiotic agents; Z88.5 Allergy status to narcotic agent; Z88.0 Allergy status to penicillin; Z88.8 Allergy status to other drugs, medicaments and biological substances; Z91.018 Allergy to other foods; Z90.49 Acquired absence of other specified parts of digestive tract; Z96.652 Presence of left artificial knee joint; Z87.442 Personal history of urinary calculi; Z86.73 Personal history of transient ischemic attack (TIA), and cerebral infarction without residual deficits
CPT/HCPCS: 81001; 87086; 99284

== ENCOUNTER 2020-01-20 14:10 | Emergency (ER) | payer OTHER, MEDICARE ==
[2020-01-20 14:22] VITALS: BP 139/85; PULSE 82; RESP 16; TEMP 97.7
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
== END 2020-01-20 17:01 | disposition home or self-care (01) ==
LOC: EC 14:10
DX: S80.02XA Contusion of left knee, initial encounter (principal); S93.409A Sprain of unspecified ligament of unspecified ankle, initial encounter; G89.29 Other chronic pain; M54.9 Dorsalgia, unspecified; F41.9 Anxiety disorder, unspecified; Z88.6 Allergy status to analgesic agent; Z88.1 Allergy status to other antibiotic agents; Z88.5 Allergy status to narcotic agent; Z88.0 Allergy status to penicillin; Z91.018 Allergy to other foods; Z96.652 Presence of left artificial knee joint; Z86.73 Personal history of transient ischemic attack (TIA), and cerebral infarction without residual deficits; V89.2XXA Person injured in unspecified motor-vehicle accident, traffic, initial encounter; Y92.410 Unspecified street and highway as the place of occurrence of the external cause
CPT/HCPCS: 72050; 99284

== ENCOUNTER 2020-09-13 17:11 | Inpatient (IN) | payer MEDICARE, OTHER ==
--- NOTE | 2020-09-13 18:22 | ED ---
General Adult HPI - General Chief complaint: Urogenital Stated complaint: Kidney Infection Source: patient, RN notes reviewed, old records reviewed Mode of arrival: ambulatory Limitations: no limitations - History of Present Illness Initial comments: 35-year-old white female patient, alert and oriented 4, presents to the emergency room with complaints of 4 months of dysuria and left flank pain. Patient states that she has history of pyelonephritis. She states that she has seen Dr. Marquez and was prescribed last week Macrobid and Bactrim and Pyridium however it has not worked. Patient states that she was referred to urologist for multiple urinary tract infections in the past but has never followed up. She states her left flank has been hurting for over 4 months and she now has a low-grade fever of 99.1 with foul-smelling urine. She states that she has been nauseated but no vomiting. She denies any vaginal discharge or risk of . She has a surgical history of cholecystectomy and hysterectomy -: month(s) (4) Location: back, left Radiation: flank Severity scale (1-10): 10 Quality: other Consistency: constant (Cramping) Improves with: none Worsens with: movement Associated Symptoms: nausea/vomiting (No vomiting), other (Loss of appetite) Treatments Prior to Arrival: none - Related Data Home Medications Medication Instructions Recorded Confirmed oxyCODONE-APAP 7.5-325MG [Percocet 1 tab PO TID PRN 12/29/19 09/13/20 7.5-325 mg] ALPRAZolam [Xanax] 2 mg PO BID PRN 09/13/20 09/13/20 Albuterol Sulfate [Albuterol 2 puff INHALATION RT-Q4H PRN 09/13/20 09/13/20 Sulfate Hfa] SUMAtriptan SUCCINATE [Imitrex] 50 mg PO DAILY PRN 09/13/20 09/13/20 tiZANidine HCL 4 mg PO BID PRN 09/13/20 09/13/20 Allergies Allergy/AdvReac Type Severity Reaction Status Date / Time ketorolac tromethamine Allergy Rash/Hives Verified 09/13/20 20:55 [From Toradol] levofloxacin [From Levaquin] Allergy Rash/Hives Verified 09/13/20 20:55 morphine Allergy Rash/Hives Verified 09/13/20 20:55 Penicillins Allergy Rash/Hives Verified 09/13/20 20:55 propoxyphene napsylate Allergy Rash/Hives Verified 09/13/20 20:55 [From Darshanellet-N 100] tramadol Allergy Rash/Hives Verified 09/13/20 20:55 aspirin AdvReac Nausea & Verified 09/13/20 20:55 Vomiting tomato AdvReac Unknown Verified 09/13/20 20:55 Patient : No (Hysterectomy) Review of Systems ROS Statement: Those systems with pertinent positive or pertinent negative responses have been documented in the HPI. ROS Other: All systems not noted in ROS Statement are negative. Past Medical History Past Medical History: CVA/TIA Additional Past Medical History / Comment(s): pyelonephritis, ADD, chronic back pain, MS, factor 12 deficiency, abdominal pain, vomiting History of Any Multi-Drug Resistant Organisms: ESBL, MRSA Date of last positivie culture/infection: 01/14/15-ESBL E.coli; 10/29/05-MRSA MDRO Source:: ESBL Urine; MRSA armpit Past Surgical History: Section, Cholecystectomy, Hysterectomy, Joint Replacement Additional Past Surgical History / Comment(s): Left knee replacement, Past Anesthesia/Blood Transfusion Reactions: No Reported Reaction Past Psychological History: ADD/ADHD, Anxiety Smoking Status: Never smoker Past Alcohol Use History: None Reported Past Drug Use History: None Reported - Past Family History Father History Unknown: Yes Additional Family Medical History / Comment(s): from aneurysm 5 years after Mother History Unknown: Yes Additional Family Medical History / Comment(s): from aneurysm and cancer at age 58 General Exam Limitations: no limitations General appearance: alert, in no apparent distress Head exam: Present: atraumatic, normocephalic, normal inspection Eye exam: Present: normal appearance, PERRL, EOMI. Absent: scleral icterus, conjunctival injection, periorbital swelling ENT exam: Present: normal exam, normal oropharynx, mucous membranes moist Neck exam: Present: normal inspection, full ROM. Absent: tenderness, meningismus, lymphadenopathy, thyromegaly Respiratory exam: Present: normal lung sounds bilaterally. Absent: respiratory distress, wheezes, rales, rhonchi, stridor, chest wall tenderness, accessory muscle use, decreased breath sounds, prolonged expiratory Cardiovascular Exam: Present: regular rate, normal rhythm, normal heart sounds. Absent: systolic murmur, diastolic murmur, rubs, gallop, clicks GI/Abdominal exam: Present: soft, normal bowel sounds. Absent: distended, tenderness, guarding, rebound, rigid Extremities exam: Present: normal inspection, full ROM, normal capillary refill. Absent: tenderness, pedal edema, joint swelling, calf tenderness Back exam: Present: normal inspection, full ROM, tenderness, CVA tenderness (L). Absent: CVA tenderness (R), muscle spasm, paraspinal tenderness, vertebral ten derness, rash noted Neurological exam: Present: alert, oriented X3, CN II-XII intact Psychiatric exam: Present: normal affect, normal mood Skin exam: Present: warm, dry, intact, normal color. Absent: rash, cyanosis, diaphoretic, erythema, petechiae, pallor, mottled Course Vital Signs 09/13/20 17:24 Temperature 97.5 F L Pulse Rate 100 Respiratory 16 Rate Blood Pressure 139/99 O2 Sat by Pulse 100 Oximetry Medical Decision Making - Medical Decision Making CT of the abdomen shows no acute abnormality, no calcifications within the kidney no hydronephrosis. Cholecystectomy noted. WBC count is 10.1, hemoglobin and hematocrit is 12 and 36 respectively, UA shows turbid appearance of urine with small blood positive for nitrites and large leukocyte esterase and greater than 182 WBCs. Patient just finished treatment with Macrobid and Bactrim last week. She will be admitted for failed outpatient therapy, given 2 g of Rocephin IV. Patient has tolerated [place] in the past and was given [place] for pain. Will consult infectious disease per Dr. Marquez. Case discussed with Dr. Yarbrough. - Lab Data Result diagrams: 09/13/20 18:50 09/13/20 18:50 Lab Results 09/13/20 09/13/20 09/13/20 Range/Units 18:05 18:50 18:50 WBC 10.1 (3.8-10.6) k/uL RBC 4.17 (3.80-5.40) m/uL Hgb 12.1 (11.4-16.0) gm/dL Hct 36.5 (34.0-46.0) % MCV 87.3 (80.0-100.0) fL MCH 28.9 (25.0-35.0) pg MCHC 33.1 (31.0-37.0) g/dL RDW 14.3 (11.5-15.5) % Plt Count 264 (150-450) k/uL MPV 7.0 Neutrophils % 75 % Lymphocytes % 18 % Monocytes % 4 % Eosinophils % 1 % Basophils % 0 % Neutrophils # 7.6 (1.3-7.7) k/uL Lymphocytes # 1.8 (1.0-4.8) k/uL Monocytes # 0.4 (0-1.0) k/uL Eosinophils # 0.1 (0-0.7) k/uL Basophils # 0.1 (0-0.2) k/uL Sodium 142 (137-145) mmol/L Potassium 3.6 (3.5-5.1) mmol/L Chloride 104 (98-107) mmol/L Carbon Dioxide 28 (22-30) mmol/L Anion Gap 10 mmol/L BUN 15 (7-17) mg/dL Creatinine 0.77 (0.52-1.04) mg/dL Est GFR (CKD-EPI)AfAm >90 (>60 ml/min/1.73 sqM) Est GFR (CKD-EPI)NonAf >90 (>60 ml/min/1.73 sqM) Glucose 99 (74-99) mg/dL Calcium 9.3 (8.4-10.2) mg/dL Total Bilirubin 0.7 (0.2-1.3) mg/dL AST 29 (14-36) U/L ALT 16 (4-34) U/L Alkaline Phosphatase 74 (38-126) U/L Total Protein 7.7 (6.3-8.2) g/dL Albumin 4.7 (3.5-5.0) g/dL Amylase 52 (30-110) U/L Lipase 89 (23-300) U/L Urine Color Yellow Urine Appearance Turbid H (Clear) Urine pH 6.0 (5.0-8.0) Ur Specific Jackson 1.025 (1.001-1.035) Urine Protein 1+ H (Negative) Urine Glucose (UA) Negative (Negative) Urine Ketones Trace H (Negative) Urine Blood Small H (Negative) Urine Nitrite Positive H (Negative) Urine Bilirubin Negative (Negative) Urine Urobilinogen <2.0 (<2.0) mg/dL Ur Leukocyte Esterase Large H (Negative) Urine RBC 16 H (0-5) /hpf Urine WBC >182 H (0-5) /hpf Urine WBC Clumps Moderate H (None) /hpf Ur Squamous Epith Cells 4 (0-4) /hpf Urine Bacteria Many H (None) /hpf Urine Mucus Many H (None) /hpf Disposition Clinical Impression: Urinary tract infection, Failure of outpatient treatment Disposition: ADMITTED IP TO THIS [facility] Condition: Fair Decision Date: 09/13/20 Decision Time: 20:24
[2020-09-13 18:28] LABS: Appearance,Urine Turbid (Clear); Bacteria,Urine Many /hpf; Bilirubin,Urine Negative (Negative); Blood,Urine Small (Negative); Color,Urine Yellow; Glucose,Urine (UA) Negative (Negative); Ketones,Urine Trace (Negative); Leukocyte Esterase,Urine Large (Negative); Mucus,Urine Many /hpf; Nitrite,Urine Positive (Negative); Protein,Urine 1+ (Negative); RBC,Urine 16 /hpf (0-5); Specific Gravity,Urine 1.025 (1.001-1.035); Squamous Epithelial Cell,Urine 4 /hpf (0-4); Urobilinogen,Urine <2.0 mg/dL (<2.0); WBC,Urine >182 /hpf (0-5)
[2020-09-13] MEDS: SODIUM CHLORIDE 0.9% 1,000 ML IV STA ×2 (18:52→20:56)
[2020-09-13 19:04] LABS: Basophils # (A) 0.1 k/uL (0-0.2); Basophils % (A) 0 %; Eosinophils # (A) 0.1 k/uL (0-0.7); Eosinophils % (A) 1 %; HCT 36.5 % (34.0-46.0); HGB 12.1 gm/dL (11.4-16.0); Lymphocytes # (A) 1.8 k/uL (1.0-4.8); Lymphocytes % (A) 18 %; MCH 28.9 pg (25.0-35.0); MCHC 33.1 g/dL (31.0-37.0); MCV 87.3 fL (80.0-100.0); Monocytes # (A) 0.4 k/uL (0-1.0); Monocytes % (A) 4 %; Neutrophils # (A) 7.6 k/uL (1.3-7.7); Neutrophils % (A) 75 %; Platelet Count 264 k/uL (150-450); RBC 4.17 m/uL (3.80-5.40); RDW 14.3 % (11.5-15.5); WBC 10.1 k/uL (3.8-10.6)
[2020-09-13 19:18] LABS: ALT 16 U/L (4-34); AST 29 U/L (14-36); African American GFR (CKD) >90 (>60 ml/min/1.73 sqM); Albumin 4.7 g/dL (3.5-5.0); Alkaline Phosphatase 74 U/L (38-126); Amylase 52 U/L (30-110); Anion Gap 10 mmol/L; Blood Urea Nitrogen 15 mg/dL (7-17); Calcium 9.3 mg/dL (8.4-10.2); Carbon Dioxide 28 mmol/L (22-30); Chloride 104 mmol/L (98-107); Glucose 99 mg/dL (74-99); Lipase 89 U/L (23-300); Non-African American GFR(CKD) >90 (>60 ml/min/1.73 sqM); Sodium 142 mmol/L (137-145); Total Bilirubin 0.7 mg/dL (0.2-1.3); Total Protein 7.7 g/dL (6.3-8.2)
[2020-09-13 19:28] LABS: Potassium 3.6 mmol/L (3.5-5.1)
--- NOTE | 2020-09-13 19:32 | CT ---
EXAMINATION TYPE: CT abdomen pelvis wo con DATE OF EXAM: 09/13/2020 COMPARISON: 08/31/2018. HISTORY: flank pain, recent kidney infection CT DLP: 942.3 mGycm Automated exposure control for dose reduction was used. TECHNIQUE: Helical acquisition of images was performed from the lung bases through the pelvis. FINDINGS: LUNG BASES: No significant abnormality is appreciated. LIVER/GB: No acute abnormality is appreciated. Cholecystectomy noted. PANCREAS: No significant abnormality is seen. SPLEEN: No significant abnormality is seen. ADRENALS: No significant abnormality is seen. KIDNEYS: No significant abnormality is seen. FREE AIR: No free air is visualized RETROPERITONEAL ADENOPATHY: None visualized REPRODUCTIVE ORGANS: No significant abnormality is seen URINARY BLADDER: No significant abnormality is seen. PELVIC ADENOPATHY: None visualized. OSSEOUS STRUCTURES: No significant abnormality is seen. BOWEL: No significant abnormality is seen. OTHER: Right adnexal surgical clips seen. IMPRESSION: NO ACUTE ABNORMALITY. CHRONIC FINDINGS ABOVE.
[2020-09-13] MEDS ORDERED: ACETAMINOPHEN TAB 500 MG TAB PO STA (19:55)
[2020-09-13] MEDS ORDERED: NALOXONE 0.4 MG/ML 1 ML VIAL IV PRN (20:24)
[2020-09-13] MEDS ORDERED: HYDROcodone/APAP 7.5-325MG 1 EACH TAB PO ONE (20:32)
[2020-09-13] MEDS ORDERED: tiZANidine 4 MG TAB PO PRN (22:09)
[2020-09-13] MEDS ORDERED: ALBUTEROL NEBULIZED 2.5 MG/3 ML INHALATION PRN (22:09)
[2020-09-13] MEDS ORDERED: SUMAtriptan succinate 50 MG TAB PO PRN (22:09)
[2020-09-13] MEDS: oxyCODONE-APAP 7.5-325MG 1 EACH TAB PO PRN (22:36)
[2020-09-13] MEDS: ALPRAZolam 1 MG TAB PO PRN (22:36)
[2020-09-14] MEDS: oxyCODONE-APAP 7.5-325MG 1 EACH TAB PO PRN ×4 (04:59→17:28)
[2020-09-14] MEDS: ONDANSETRON 4 MG/2 ML VIAL IVP PRN ×3 (09:23→21:54)
--- NOTE | 2020-09-14 21:44 | CONS ---
CONSULTATION DATE OF SERVICE: 09/14/2020 REASON FOR CONSULTATION: Pyelonephritis. HISTORY OF PRESENT ILLNESS: The patient is a 35-year-old female with past medical history significant for recurrent urinary tract infection. The patient presented to the ER for evaluation of dysuria, left flank pain. The pain has been getting worse for the last few days. The patient has been treated in the outpatient setting by her primary care physician Dr. Marquez with Macrobid, Bactrim and Pyridium. However, seemed to have no improvement. The patient did have persistent pain mostly to the left flank area describing it to be more of a sharp pain almost 7 to 8/10 and no radiation. Did have a burning of urine. No suprapubic pain. Complaining of nauseated and did not have any vomiting or diarrhea. With these symptoms, the patient was evaluated by the ER physician. On arrival to the ER, the patient has been afebrile. The patient did have a normal white count. Did have a positive UA with large leukocyte esterase, more than 1-2 WBCs. Cultures are currently pending. She did receive a dose of Rocephin in the ER and admitted to the hospital. Infectious Disease was consulted for further management of antibiotic therapy. REVIEW OF SYSTEMS: Positive points have been mentioned in HPI. Rest of systems are negative. PAST MEDICAL HISTORY: CVA, TIA, pyelonephritis, ADHD, chronic back pain, and recurrent UTIs. PAST SURGICAL HISTORY: , cholecystectomy, hysterectomy, joint replacement. SOCIAL HISTORY: Denies smoking, drinking or drug use. FAMILY HISTORY: No pertinent findings noticed. ALLERGIES: TO MULTIPLE MEDICATIONS LISTED ON THE CHART. MEDICATIONS: Currently include the patient is on: Ventolin, Xanax, Narcan, Zofran, Percocet, Imitrex, and Zanaflex. PHYSICAL EXAMINATION: Her blood pressure is 123/76, pulse of 83, temperature 98.1. She is 97% on room air. GENERAL DESCRIPTION is a middle-aged female lying in bed in no distress. No tachypnea or accessory muscles of respiration use. HEENT: Examination shows no pallor or scleral icterus. Oral mucous membranes dry. NECK: Trachea central. No thyromegaly. LUNGS unlabored breathing. Clear to auscultation anteriorly. No wheeze or crackles. HEART S1, S2. Regular rate and rhythm. ABDOMEN: Soft. Mild tenderness to the left flank. No guarding. No rigidity. No organomegaly. EXTREMITIES: No edema of the feet. SKIN: No rash or mass palpable. NEUROLOGICAL: Patient is awake, alert, and oriented times three. Mood and affect normal. LABS: Hemoglobin is 12.1, white count 10.1, BUN of 15, creatinine 0.77. Urine was large leukocyte esterase, more than 180 WBCs. Cultures are pending. CT of abdomen and pelvis did not show any acute abnormality. DIAGNOSTIC IMPRESSION AND PLAN: 1. Patient admitted to the hospital with left flank pain, burning urine, history of recurrent urinary tract infections concerning for another episode of urinary tract infection, failing outpatient Macrobid and Bactrim DS therapy. CT was negative for any structure abnormality. 2. Patient does have MULTIPLE ANTIBIOTIC ALLERGIES that will limit the number of antibiotics safe to use. PLAN: 1. We will start the patient on Rocephin 1 g IV piggyback daily. 2. Gentle IV fluid. 3. We will follow clinical condition and further adjust medication if needed. Thank you for this consultation. We will follow this patient along with you. MMODL / IJN: [id number] /
[2020-09-14] MEDS: ALPRAZolam 1 MG TAB PO PRN (21:54)
[2020-09-14] MEDS: HYDROmorphone 0.5 MG/0.5 ML SYRINGE IVP PRN (23:14)
[2020-09-15] MEDS: HYDROmorphone 0.5 MG/0.5 ML SYRINGE IVP PRN ×4 (03:23→20:40)
[2020-09-15] MEDS: ONDANSETRON 4 MG/2 ML VIAL IVP PRN ×2 (08:20→17:00)
[2020-09-15] MEDS: oxyCODONE-APAP 7.5-325MG 1 EACH TAB PO PRN (16:59)
--- NOTE | 2020-09-15 18:52 | PN ---
PROGRESS NOTE DATE OF SERVICE: 09/15/2020 REASON FOR FOLLOWUP: UTI infection. INTERVAL HISTORY: The patient is afebrile. The patient is breathing comfortably. She is feeling slightly better today. No chest pain, shortness of breath or cough. No cough. No diarrhea. PHYSICAL EXAMINATION: Blood pressure 108/56, pulse of 74, temperature 98.4. She is 99% on room air. General description is a middle-aged female lying in bed in no distress. Respiratory system: Unlabored breathing, clear to auscultation anteriorly. Heart S1, S2. Regular rate and rhythm. Abdomen soft, no tenderness. LABS: No new labs have been obtained. Urine showing a Gram-negative. DIAGNOSTIC IMPRESSION AND PLAN: Patient with gram-negative urinary tract infection failing outpatient oral antibiotic therapy. The patient is currently on Rocephin to continue while waiting for the culture to finalize and monitor clinical course closely. MMODL / IJN: [id number] /
--- NOTE | 2020-09-15 19:45 | HP ---
HISTORY AND PHYSICAL DATE OF SERVICE: 09/14/2020 HISTORY OF PRESENT ILLNESS: 35-year-old white female admitted with urosepsis with large amount UTI. Remains on Rocephin 1 g Q 24 hours. Waiting for urine culture. Abdominal pain has been treated with pain medicines. She was admitted due to worsening outpatient treatment, failed outpatient treatment. Abdominal pelvis CT was reviewed. REVIEW OF SYSTEMS: Fourteen-point review of systems negative except for mentioned in HPI. PAST MEDICAL HISTORY: CVA, TIA, pyelonephritis, ADHD, chronic back pain, recurrent UTIs. SOCIAL HISTORY: Denies smoking, alcohol, or drugs. PAST SURGICAL HISTORY: C-sections, cholecystectomy, hysterectomy, joint replacement. ALLERGIES: MULTIPLE MEDICINES . FAMILY HISTORY: See old chart. PHYSICAL EXAM: BP 120s over 70s. Pulse is in 80s, temperature is 98.1, 97% on room air. HEENT: Normocephalic, atraumatic. Pupils equal, round, reactive. LUNGS: Clear. HEART S1, S2. ABDOMEN: Soft, nontender. EXTREMITIES: No cyanosis, clubbing, edema. LABORATORY DATA: Labs show white count 10.1, hemoglobin 12.1, BUN 15, creatinine 0.77. ASSESSMENT: 1. Acute abdominal pain, flank pain, worsening failed outpatient treatment. 2. Urinary tract infection, failed Bactrim and Macrobid. 3. CT is negative for an acute structure abnormality. 4. Multiple ANTIBIOTIC ALLERGIES. Continue on Rocephin and fluids. Await for cultures. MMODL / IJN: [id number] /
[2020-09-16] MEDS: ALPRAZolam 1 MG TAB PO PRN (00:02)
[2020-09-16] MEDS: HYDROmorphone 0.5 MG/0.5 ML SYRINGE IVP PRN ×3 (00:52→09:01)
[2020-09-16] MEDS: ONDANSETRON 4 MG/2 ML VIAL IVP PRN (00:52)
[2020-09-16 07:24] VITALS: BP 119/77; PULSE 75; RESP 17; TEMP 98.1
== END 2020-09-16 10:39 | disposition home or self-care (01) | DRG 690 ==
LOC: EC 17:11 → 6NMEDSUR 20:30 → OBSVTOIN 09-15 08:34
PROVIDERS: ADMIT Family Medicine; ATTEND Family Medicine
DX: N12 Tubulo-interstitial nephritis, not specified as acute or chronic (principal); D68.2 Hereditary deficiency of other clotting factors; B96.89 Other specified bacterial agents as the cause of diseases classified elsewhere; F98.8 Other specified behavioral and emotional disorders with onset usually occurring in childhood and adolescence; G35 Multiple sclerosis; G89.29 Other chronic pain; M54.9 Dorsalgia, unspecified; Z86.73 Personal history of transient ischemic attack (TIA), and cerebral infarction without residual deficits; Z87.440 Personal history of urinary (tract) infections; Z88.1 Allergy status to other antibiotic agents; Z90.49 Acquired absence of other specified parts of digestive tract; Z90.710 Acquired absence of both cervix and uterus; Z96.652 Presence of left artificial knee joint; Z98.890 Other specified postprocedural states; Z88.6 Allergy status to analgesic agent; Z88.5 Allergy status to narcotic agent; Z88.0 Allergy status to penicillin; Z79.899 Other long term (current) drug therapy
CPT/HCPCS: 74176; 80053; 81001; 82150; 83690; 85025; 87077; 87086; 87186; 99285

== ENCOUNTER 2021-03-26 13:49 | Emergency (ER) | payer MEDICARE, OTHER ==
[2021-03-26 14:29] LABS: Appearance,Urine Cloudy (Clear); Bacteria,Urine Many /hpf; Bilirubin,Urine Negative (Negative); Blood,Urine Trace (Negative); Color,Urine Yellow; Glucose,Urine (UA) Negative (Negative); Ketones,Urine Negative (Negative); Leukocyte Esterase,Urine Large (Negative); Mucus,Urine Many /hpf; Nitrite,Urine Positive (Negative); PH, Urine 5.5 (5.0-8.0); Protein,Urine Trace (Negative); RBC,Urine 6 /hpf (0-5); Specific Gravity,Urine 1.028 (1.001-1.035); Squamous Epithelial Cell,Urine 3 /hpf (0-4); Urobilinogen,Urine <2.0 mg/dL (<2.0); WBC,Urine 118 /hpf (0-5)
[2021-03-26] MEDS ORDERED: HYDROmorphone 0.5 MG/0.5 ML SYRINGE IVP STA (15:17)
[2021-03-26] MEDS ORDERED: ONDANSETRON 4 MG/2 ML VIAL IVP STA (15:18)
[2021-03-26] MEDS ORDERED: cefTRIAXone IN SWFI 1,000 MG/10 ML SYRINGE IVP STA (15:18)
--- NOTE | 2021-03-26 16:09 | ED ---
General Adult HPI - General Source: patient Mode of arrival: ambulatory Limitations: no limitations <Ashley Sesay - Last Filed: 03/26/21 16:08> <AnatoichandrayeseniaVidhiBrad - Last Filed: 03/26/21 17:15> - General Chief complaint: Back Pain/Injury Stated complaint: Back Pain - History of Present Illness Initial comments: Patient is a 36-year-old female with past medical history of multiple UTIs who presents to the emergency department with reported flank pain. States her symptoms have been present for the past month. Admits to dysuria and hematuria. She has been taking some Pyridium at home without improvement in her symptoms. Patient was hospitalized in September for similar complaint. She was given follow[facility]up information for [facility] however states she has not follow-up with him. No fevers. Does admit to nausea without vomiting. No history of renal stones. No other alleviating, precipitating modifying factors (Ashley Sesay) - Related Data Home Medications Medication Instructions Recorded Confirmed oxyCODONE-APAP 7.5-325MG [Percocet 1 tab PO TID PRN 12/29/19 09/13/20 7.5-325 mg] ALPRAZolam [Xanax] 2 mg PO BID PRN 09/13/20 09/13/20 Albuterol Sulfate [Albuterol 2 puff INHALATION RT-Q4H PRN 09/13/20 09/13/20 Sulfate Hfa] SUMAtriptan SUCCINATE [Imitrex] 50 mg PO DAILY PRN 09/13/20 09/13/20 tiZANidine HCL 4 mg PO BID PRN 09/13/20 09/13/20 Previous Rx's Medication Instructions Recorded Cephalexin [Keflex] 500 mg PO QID 7 Days #28 cap 03/26/21 Allergies Allergy/AdvReac Type Severity Reaction Status Date / Time ketorolac tromethamine Allergy Rash/Hives Verified 03/26/21 13:59 [From Toradol] levofloxacin [From Levaquin] Allergy Rash/Hives Verified 03/26/21 13:59 morphine Allergy Rash/Hives Verified 03/26/21 13:59 Penicillins Allergy Rash/Hives Verified 03/26/21 13:59 propoxyphene napsylate Allergy Rash/Hives Verified 03/26/21 13:59 [From Darvocet-N 100] tramadol Allergy Rash/Hives Verified 03/26/21 13:59 aspirin AdvReac Nausea & Verified 03/26/21 13:59 Vomiting tomato AdvReac Unknown Verified 03/26/21 13:59 Review of Systems ROS Other: All systems not noted in ROS Statement are negative. <Ashley Sesay - Last Filed: 03/26/21 16:08> ROS Other: All systems not noted in ROS Statement are negative. <Brad Cardoso - Last Filed: 03/26/21 17:15> ROS Statement: Those systems with pertinent positive or pertinent negative responses have been documented in the HPI. Past Medical History Past Medical History: CVA/TIA Additional Past Medical History / Comment(s): pyelonephritis, ADD, chronic back pain, MS, factor 12 deficiency, abdominal pain, vomiting History of Any Multi-Drug Resistant Organisms: ESBL, MRSA Date of last positivie culture/infection: 01/14/15-ESBL E.coli; 10/29/05-MRSA MDRO Source:: ESBL Urine; MRSA armpit Past Surgical History: Section, Cholecystectomy, Hysterectomy, Joint Replacement Additional Past Surgical History / Comment(s): Left knee replacement, Past Anesthesia/Blood Transfusion Reactions: No Reported Reaction Past Psychological History: ADD/ADHD, Anxiety Smoking Status: Never smoker Past Alcohol Use History: None Reported Past Drug Use History: None Reported - Past Family History Father History Unknown: Yes Additional Family Medical History / Comment(s): from aneurysm 5 years after Mother History Unknown: Yes Additional Family Medical History / Comment(s): from aneurysm and cancer at age 58 <Ashley Sesay - Last Filed: 03/26/21 16:08> General Exam Limitations: no limitations <Ashley Sesay - Last Filed: 03/26/21 16:08> Course <Brad Cardoso - Last Filed: 03/26/21 17:15> Vital Signs 03/26/21 13:59 Temperature 97.1 F L Pulse Rate 71 Respiratory 20 Rate Blood Pressure 134/75 O2 Sat by Pulse 100 Oximetry - Reevaluation(s) Reevaluation #1: 03/26/21 17:14 Patient was endorsed to me by Dr. Sesay (secondary to shift change) with the patient's labs still pending. Dr. Sesay felt that the patient could be safely discharged home with a prescription for QID Keflex for treatment of pyelonephritis if the patient's labs were unremarkable. A dose of IV Rocephin was ordered by Dr. Sesay and given in the ED today. Patient's labs were all reviewed myself and are fairly unremarkable. Patient is afebrile and without leukocytosis. Patient's lactic acid level is within normal limits. Patient's UA findings are suggestive of UTI. Patient denies development of any new symp toms while in the ED. Patient is aware of her test results, and she feels comfortable being discharged home at this time. Patient was counseled about pyelonephritis, and she was clearly explained return and follow-up instructions. Patient was instructed to have a low threshold for return to the emergency department should her symptoms worsen. Patient was also instructed to follow up closely with her primary care provider. Patient feels comfortable with this plan. (Brad Cardoso) Medical Decision Making <Ashley Sesay - Last Filed: 03/26/21 16:08> - Lab Data Result diagrams: 03/26/21 16:11 03/26/21 16:11 <Brad Cardoso - Last Filed: 03/26/21 17:15> - Medical Decision Making Upon arrival patient placed into [facility]. A thorough history and physical exam is performed. Laboratory studies are ordered. IV is established. Pain and nausea medications ordered. Urinalysis is grossly positive for infection. Previous sensitivities are reviewed which demonstrates sensitivity to Bactrim and Macrobid. At this time patient will be signed out to Dr. Cardoso for further management. (Ashley Sesay) - Lab Data Lab Results 03/26/21 03/26/21 03/26/21 Range/Units 14:03 16:11 16:11 WBC 6.3 (3.8-10.6) k/uL RBC 4.38 (3.80-5.40) m/uL Hgb 13.2 (11.4-16.0) gm/dL Hct 40.1 (34.0-46.0) % MCV 91.5 (80.0-100.0) fL MCH 30.1 (25.0-35.0) pg MCHC 32.8 (31.0-37.0) g/dL RDW 13.5 (11.5-15.5) % Plt Count 265 (150-450) k/uL MPV 6.9 Neutrophils % 50 % Lymphocytes % 38 % Monocytes % 5 % Eosinophils % 5 % Basophils % 1 % Neutrophils # 3.2 (1.3-7.7) k/uL Lymphocytes # 2.4 (1.0-4.8) k/uL Monocytes # 0.3 (0-1.0) k/uL Eosinophils # 0.3 (0-0.7) k/uL Basophils # 0.0 (0-0.2) k/uL Sodium 140 (137-145) mmol/L Potassium 4.9 (3.5-5.1) mmol/L Chloride 103 (98-107) mmol/L Carbon Dioxide 24 (22-30) mmol/L Anion Gap 13 mmol/L BUN 17 (7-17) mg/dL Creatinine 0.72 (0.52-1.04) mg/dL Est GFR (CKD-EPI)AfAm >90 (>60 ml/min/1.73 sqM) Est GFR (CKD-EPI)NonAf >90 (>60 ml/min/1.73 sqM) Glucose 82 (74-99) mg/dL Plasma Lactic Acid Julio (0.7-2.0) mmol/L Calcium 9.2 (8.4-10.2) mg/dL Total Bilirubin 0.9 (0.2-1.3) mg/dL AST 41 H (14-36) U/L ALT 21 (4-34) U/L Alkaline Phosphatase 79 (38-126) U/L Total Protein 8.6 H (6.3-8.2) g/dL Albumin 4.7 (3.5-5.0) g/dL Urine Color Yellow Urine Appearance Cloudy H (Clear) Urine pH 5.5 (5.0-8.0) Ur Specific [place] 1.028 (1.001-1.035) Urine Protein Trace H (Negative) Urine Glucose (UA) Negative (Negative) Urine Ketones Negative (Negative) Urine Blood Trace H (Negative) Urine Nitrite Positive H (Negative) Urine Bilirubin Negative (Negative) Urine Urobilinogen <2.0 (<2.0) mg/dL Ur Leukocyte Esterase Large H (Negative) Urine RBC 6 H (0-5) /hpf Urine WBC 118 H (0-5) /hpf Urine WBC Clumps Few H (None) /hpf Ur Squamous Epith Cells 3 (0-4) /hpf Urine Bacteria Many H (None) /hpf Urine Mucus Many H (None) /hpf 03/26/21 Range/Units 16:11 WBC (3.8-10.6) k/uL RBC (3.80-5.40) m/uL Hgb (11.4-16.0) gm/dL Hct (34.0-46.0) % MCV (80.0-100.0) fL MCH (25.0-35.0) pg MCHC (31.0-37.0) g/dL RDW (11.5-15.5) % Plt Count (150-450) k/uL MPV Neutrophils % % Lymphocytes % % Monocytes % % Eosinophils % % Basophils % % Neutrophils # (1.3-7.7) k/uL Lymphocytes # (1.0-4.8) k/uL Monocytes # (0-1.0) k/uL Eosinophils # (0-0.7) k/uL Basophils # (0-0.2) k/uL Sodium (137-145) mmol/L Potassium (3.5-5.1) mmol/L Chloride (98-107) mmol/L Carbon Dioxide (22-30) mmol/L Anion Gap mmol/L BUN (7-17) mg/dL Creatinine (0.52-1.04) mg/dL Est GFR (CKD-EPI)AfAm (>60 ml/min/1.73 sqM) Est GFR (CKD-EPI)NonAf (>60 ml/min/1.73 sqM) Glucose (74-99) mg/dL Plasma Lactic Acid Julio 1.7 (0.7-2.0) mmol/L Calcium (8.4-10.2) mg/dL Total Bilirubin (0.2-1.3) mg/dL AST (14-36) U/L ALT (4-34) U/L Alkaline Phosphatase (38-126) U/L Total Protein (6.3-8.2) g/dL Albumin (3.5-5.0) g/dL Urine Color Urine Appearance (Clear) Urine pH (5.0-8.0) Ur Specific [place] (1.001-1.035) Urine Protein (Negative) Urine Glucose (UA) (Negative) Urine Ketones (Negative) Urine Blood (Negative) Urine Nitrite (Negative) Urine Bilirubin (Negative) Urine Urobilinogen (<2.0) mg/dL Ur Leukocyte Esterase (Negative) Urine RBC (0-5) /hpf Urine WBC (0-5) /hpf Urine WBC Clumps (None) /hpf Ur Squamous Epith Cells (0-4) /hpf Urine Bacteria (None) /hpf Urine Mucus (None) /hpf Disposition <Ashley Sesay - Last Filed: 03/26/21 16:08> Is patient prescribed a controlled substance at d/c from ED?: No Time of Disposition: 17:15 <Brad Cardoso - Last Filed: 03/26/21 17:15> Clinical Impression: Pyelonephritis Disposition: HOME SELF-CARE Condition: Stable Instructions (If sedation given, give patient instructions): Kidney Infection (ED) Additional Instructions: Return to the ER immediately should you develop new or worsening pain, vomiting, a high fever, shortness of breath, feeling dizzy or faint, or new or worsening symptoms. Follow up closely with your primary care provider. Prescriptions: Cephalexin [Keflex] 500 mg PO QID 7 Days #28 cap Referrals: None,Stated [Primary Care Provider] - 1-2 days Kai Valdes MD [REFERRING] - 1-2 days
[2021-03-26 16:23] LABS: Basophils % (A) 1 %; Eosinophils # (A) 0.3 k/uL (0-0.7); Eosinophils % (A) 5 %; HCT 40.1 % (34.0-46.0); HGB 13.2 gm/dL (11.4-16.0); Lymphocytes # (A) 2.4 k/uL (1.0-4.8); Lymphocytes % (A) 38 %; MCH 30.1 pg (25.0-35.0); MCHC 32.8 g/dL (31.0-37.0); MCV 91.5 fL (80.0-100.0); Mean Platelet Volume 6.9; Monocytes # (A) 0.3 k/uL (0-1.0); Monocytes % (A) 5 %; Neutrophils # (A) 3.2 k/uL (1.3-7.7); Neutrophils % (A) 50 %; Platelet Count 265 k/uL (150-450); RBC 4.38 m/uL (3.80-5.40); RDW 13.5 % (11.5-15.5); WBC 6.3 k/uL (3.8-10.6)
[2021-03-26 17:02] LABS: ALT 21 U/L (4-34); AST 41 U/L (14-36); African American GFR (CKD) >90 (>60 ml/min/1.73 sqM); Albumin 4.7 g/dL (3.5-5.0); Alkaline Phosphatase 79 U/L (38-126); Anion Gap 13 mmol/L; Blood Urea Nitrogen 17 mg/dL (7-17); Calcium 9.2 mg/dL (8.4-10.2); Carbon Dioxide 24 mmol/L (22-30); Chloride 103 mmol/L (98-107); Glucose 82 mg/dL (74-99); Non-African American GFR(CKD) >90 (>60 ml/min/1.73 sqM); Sodium 140 mmol/L (137-145); Total Bilirubin 0.9 mg/dL (0.2-1.3); Total Protein 8.6 g/dL (6.3-8.2)
[2021-03-26 17:08] LABS: Potassium 4.9 mmol/L (3.5-5.1)
[2021-03-26 17:28] VITALS: BP 119/87; PULSE 81; RESP 18; TEMP 98
== END 2021-03-26 17:28 | disposition home or self-care (01) ==
LOC: SUPCPDRO 13:49 → EC 13:49
DX: N12 Tubulo-interstitial nephritis, not specified as acute or chronic (principal); F90.9 Attention-deficit hyperactivity disorder, unspecified type; F41.9 Anxiety disorder, unspecified; Z86.73 Personal history of transient ischemic attack (TIA), and cerebral infarction without residual deficits
CPT/HCPCS: 36415; 80053; 83605; 85025; 81001; 87040; 87086; 87077; 87186; 99284; 96374; 96375 ×2; J2405; J0696; J1170

== ENCOUNTER 2021-07-02 11:28 | Emergency (ER) | payer OTHER ==
[2021-07-02 11:35] VITALS: RESP 18; TEMP 97.8
[2021-07-02] MEDS ORDERED: ONDANSETRON 4 MG/2 ML VIAL IVP STA (11:44)
[2021-07-02] MEDS ORDERED: SODIUM CHLORIDE 0.9% 2,000 ML IV STA (11:44)
[2021-07-02] MEDS ORDERED: HYDROmorphone 0.5 MG/0.5 ML SYRINGE IVP STA (11:50)
[2021-07-02 12:07] LABS: Basophils # (A) 0.1 k/uL (0-0.2); Basophils % (A) 1 %; Eosinophils # (A) 0.4 k/uL (0-0.7); Eosinophils % (A) 5 %; HGB 12.8 gm/dL (11.4-16.0); Lymphocytes # (A) 2.7 k/uL (1.0-4.8); Lymphocytes % (A) 35 %; MCH 30.3 pg (25.0-35.0); MCHC 32.7 g/dL (31.0-37.0); MCV 92.5 fL (80.0-100.0); Mean Platelet Volume 6.9; Monocytes # (A) 0.4 k/uL (0-1.0); Monocytes % (A) 5 %; Neutrophils # (A) 4.1 k/uL (1.3-7.7); Neutrophils % (A) 53 %; Platelet Count 267 k/uL (150-450); RBC 4.22 m/uL (3.80-5.40); RDW 13.6 % (11.5-15.5); WBC 7.8 k/uL (3.8-10.6)
[2021-07-02 12:39] LABS: ALT 19 U/L (4-34); AST 25 U/L (14-36); African American GFR (CKD) >90 (>60 ml/min/1.73 sqM); Albumin 4.2 g/dL (3.5-5.0); Alkaline Phosphatase 77 U/L (38-126); Anion Gap 9 mmol/L; Blood Urea Nitrogen 17 mg/dL (7-17); Calcium 8.8 mg/dL (8.4-10.2); Carbon Dioxide 26 mmol/L (22-30); Chloride 108 mmol/L (98-107); Glucose 89 mg/dL (74-99); Lipase 27 U/L (23-300); Non-African American GFR(CKD) >90 (>60 ml/min/1.73 sqM); Sodium 143 mmol/L (137-145); Total Bilirubin 0.8 mg/dL (0.2-1.3); Total Protein 7.4 g/dL (6.3-8.2)
--- NOTE | 2021-07-02 13:12 | ED ---
General Adult HPI - General Chief complaint: Abdominal Pain Stated complaint: Arm and leg pain Time Seen by Provider: 07/02/21 11:37 Source: patient, family Mode of arrival: ambulatory Limitations: no limitations - History of Present Illness Initial comments: Patient is a 36-year-old female presents to the emergency department with a chief complaint of back pain. Patient states the pain started yesterday and progressively worsened over the night. Describes this pain over the lower back, worse on the right radiation to the right side. No recent injury. Patient also reports pain in the lower abdomen in the suprapubic region. She denies pain medication use today. Upon questioning patient admits to burning with urination. She states she does not look at her urine therefore is unaware if there is blood in urine. Patient also endorses nausea with vomiting. She states she has vomited 10 times today, nonbloody. Patient states she has histor y of kidney infection but not stone. She denies fever and chills. She has no other concerns. - Related Data Previous Rx's Medication Instructions Recorded Cephalexin [Keflex] 500 mg PO QID 7 Days #28 cap 03/26/21 Ondansetron Odt [Zofran Odt] 4 mg PO Q8HR PRN #12 tab 07/02/21 Allergies Allergy/AdvReac Type Severity Reaction Status Date / Time ketorolac tromethamine Allergy Rash/Hives Verified 07/02/21 11:35 [From Toradol] levofloxacin [From Levaquin] Allergy Rash/Hives Verified 07/02/21 11:35 morphine Allergy Rash/Hives Verified 07/02/21 11:35 Penicillins Allergy Rash/Hives Verified 07/02/21 11:35 propoxyphene napsylate Allergy Rash/Hives Verified 07/02/21 11:35 [From Darvocet-N 100] tramadol Allergy Rash/Hives Verified 07/02/21 11:35 aspirin AdvReac Nausea & Verified 07/02/21 11:35 Vomiting tomato AdvReac Unknown Verified 07/02/21 11:35 Review of Systems ROS Statement: Those systems with pertinent positive or pertinent negative responses have been documented in the HPI. ROS Other: All systems not noted in ROS Statement are negative. Past Medical History Past Medical History: CVA/TIA Additional Past Medical History / Comment(s): pyelonephritis, ADD, chronic back pain, MS, factor 12 deficiency, abdominal pain, vomiting History of Any Multi-Drug Resistant Organisms: ESBL, MRSA Date of last positivie culture/infection: 01/14/15-ESBL E.coli; 10/29/05-MRSA MDRO Source:: ESBL Urine; MRSA armpit Past Surgical History: Section, Cholecystectomy, Hysterectomy, Joint Replacement Additional Past Surgical History / Comment(s): Left knee replacement, Past Anesthesia/Blood Transfusion Reactions: No Reported Reaction Past Psychological History: ADD/ADHD, Anxiety Smoking Status: Never smoker Past Alcohol Use History: None Reported Past Drug Use History: None Reported - Past Family History Father History Unknown: Yes Additional Family Medical History / Comment(s): from aneurysm 5 years after Mother History Unknown: Yes Additional Family Medical History / Comment(s): from aneurysm and cancer at age 58 General Exam Limitations: no limitations General appearance: alert, in no apparent distress Head exam: Present: atraumatic, normocephalic, normal inspection Eye exam: Present: normal appearance, PERRL, EOMI. Absent: scleral icterus, conjunctival injection, periorbital swelling ENT exam: Present: mucous membranes moist Neck exam: Present: normal inspection Respiratory exam: Present: normal lung sounds bilaterally. Absent: respiratory distress, wheezes, rales, rhonchi, stridor Cardiovascular Exam: Present: regular rate, normal rhythm, normal heart sounds. Absent: systolic murmur, diastolic murmur, rubs, gallop, clicks GI/Abdominal exam: Present: soft, tenderness (Suprapubic), normal bowel sounds. Absent: distended, guarding, rebound, rigid Back exam: Present: CVA tenderness (R). Absent: CVA tenderness (L), paraspinal tenderness, vertebral tenderness Neurological exam: Present: alert, oriented X3, CN II-XII intact Psychiatric exam: Present: normal affect, normal mood Skin exam: Present: warm, dry, intact, normal color. Absent: rash Course Vital Signs 07/02/21 07/02/21 07/02/21 11:29 12:34 13:53 Temperature 97.8 F Pulse Rate 90 83 Respiratory 18 18 18 Rate Blood Pressure 130/84 121/92 134/87 O2 Sat by Pulse 100 98 Oximetry Medical Decision Making - Medical Decision Making This is a 36-year-old female who presents with back pain, suprapubic pain, nausea, and vomiting. Thorough history and examination were performed. Patient is well-appearing and in no apparent distress. Patient has history of kidney infection. She states this feels similar to her kidney infections. She is afebrile. Pulse is normal at 90. The back is nontender to palpation over there is right CVA tenderness. The abdomen is soft. Patient is mildly tender with palpation of the suprapubic region. Laboratory studies were obtained. Patient has normal white count at 7.8. Urinalysis is not indicated infection or blood. Upon questioning about morphine allergy patient states she has not know how she reacts when she takes morphine but states Dilaudid works best. Patient given 1 dose of Dilaudid, Zofran, and fluid bolus. At this time there are no diagnostic studies to explain patient's symptoms. On reevaluation patient reports improvement of her pain. With normal vital signs, nonspecific abdominal exam, and unremarkable laboratory studies, imaging is not necessary at this time. Patient is highly encouraged to find a primary care provider for further evaluation of her symptoms as patient is evaluated in the emergency department often. Return parameters discussed. Patient verbalizes understanding and is agreeable to plan. Dr. Marcelo is my attending. - Lab Data Result diagrams: 07/02/21 11:57 07/02/21 11:57 Lab Results 07/02/21 07/02/21 07/02/21 Range/Units 11:57 11:57 11:57 WBC 7.8 (3.8-10.6) k/uL RBC 4.22 (3.80-5.40) m/uL Hgb 12.8 (11.4-16.0) gm/dL Hct 39.0 (34.0-46.0) % MCV 92.5 (80.0-100.0) fL MCH 30.3 (25.0-35.0) pg MCHC 32.7 (31.0-37.0) g/dL RDW 13.6 (11.5-15.5) % Plt Count 267 (150-450) k/uL MPV 6.9 Neutrophils % 53 % Lymphocytes % 35 % Monocytes % 5 % Eosinophils % 5 % Basophils % 1 % Neutrophils # 4.1 (1.3-7.7) k/uL Lymphocytes # 2.7 (1.0-4.8) k/uL Monocytes # 0.4 (0-1.0) k/uL Eosinophils # 0.4 (0-0.7) k/uL Basophils # 0.1 (0-0.2) k/uL Sodium 143 (137-145) mmol/L Potassium 4.0 (3.5-5.1) mmol/L Chloride 108 H (98-107) mmol/L Carbon Dioxide 26 (22-30) mmol/L Anion Gap 9 mmol/L BUN 17 (7-17) mg/dL Creatinine 0.67 (0.52-1.04) mg/dL Est GFR (CKD-EPI)AfAm >90 (>60 ml/min/1.73 sqM) Est GFR (CKD-EPI)NonAf >90 (>60 ml/min/1.73 sqM) Glucose 89 (74-99) mg/dL Calcium 8.8 (8.4-10.2) mg/dL Total Bilirubin 0.8 (0.2-1.3) mg/dL AST 25 (14-36) U/L ALT 19 (4-34) U/L Alkaline Phosphatase 77 (38-126) U/L Total Protein 7.4 (6.3-8.2) g/dL Albumin 4.2 (3.5-5.0) g/dL Lipase 27 (23-300) U/L Urine Color Light Yellow Urine Appearance Clear (Clear) Urine pH 5.5 (5.0-8.0) Ur Specific [place] 1.016 (1.001-1.035) Urine Protein Negative (Negative) Urine Glucose (UA) Negative (Negative) Urine Ketones Negative (Negative) Urine Blood Negative (Negative) Urine Nitrite Negative (Negative) Urine Bilirubin Negative (Negative) Urine Urobilinogen <2.0 (<2.0) mg/dL Ur Leukocyte Esterase Negative (Negative) Disposition Clinical Impression: Suprapubic abdominal pain, Nausea & vomiting, Back pain Disposition: HOME SELF-CARE Condition: Good Instructions (If sedation given, give patient instructions): Abdominal Pain (ED), Back Pain (ED) Additional Instructions: Please take medication as directed. Follow-up with primary care provider in one to 2 days. Return to the emergency department if you experience new, concerning, or worsening symptoms. Prescriptions: Ondansetron Odt [Zofran Odt] 4 mg PO Q8HR PRN #12 tab PRN Reason: Nausea Is patient prescribed a controlled substance at d/c from ED?: No Referrals: None,Stated [Primary Care Provider] - 1-2 days Time of Disposition: 13:39
[2021-07-02 13:13] LABS: Appearance,Urine Clear (Clear); Bilirubin,Urine Negative (Negative); Blood,Urine Negative (Negative); Color,Urine Light Yellow; Glucose,Urine (UA) Negative (Negative); Ketones,Urine Negative (Negative); Leukocyte Esterase,Urine Negative (Negative); Nitrite,Urine Negative (Negative); PH, Urine 5.5 (5.0-8.0); Protein,Urine Negative (Negative); Specific Gravity,Urine 1.016 (1.001-1.035); Urobilinogen,Urine <2.0 mg/dL (<2.0)
[2021-07-02] MEDS ORDERED: ACETAMINOPHEN TAB 325 MG TAB PO STA (13:37)
[2021-07-02 13:55] VITALS: BP 134/87; PULSE 83
== END 2021-07-02 13:55 | disposition home or self-care (01) ==
LOC: EC 11:28
DX: R10.2 Pelvic and perineal pain (principal); R11.2 Nausea with vomiting, unspecified; M54.9 Dorsalgia, unspecified; Z86.73 Personal history of transient ischemic attack (TIA), and cerebral infarction without residual deficits; Z88.6 Allergy status to analgesic agent; Z88.1 Allergy status to other antibiotic agents; Z88.0 Allergy status to penicillin; Z88.5 Allergy status to narcotic agent
CPT/HCPCS: 36415; 80053; 83690; 85025; 81003; 99284; 96374; 96375; 96361; J2405; J1170

== ENCOUNTER 2022-01-24 13:31 | Emergency (ER) | payer MEDICARE, OTHER ==
[2022-01-24 13:50] VITALS: RESP 18; TEMP 98
[2022-01-24 15:59] LABS: Basophils % (A) 0 %; Eosinophils # (A) 0.2 k/uL (0-0.7); Eosinophils % (A) 2 %; HCT 38.8 % (34.0-46.0); HGB 13.4 gm/dL (11.4-16.0); Lymphocytes # (A) 1.9 k/uL (1.0-4.8); Lymphocytes % (A) 19 %; MCH 30.5 pg (25.0-35.0); MCHC 34.6 g/dL (31.0-37.0); Monocytes # (A) 0.4 k/uL (0-1.0); Monocytes % (A) 4 %; Neutrophils # (A) 7.4 k/uL (1.3-7.7); Neutrophils % (A) 73 %; Platelet Count 277 k/uL (150-450); RDW 13.2 % (11.5-15.5); WBC 10.1 k/uL (3.8-10.6)
[2022-01-24 16:23] LABS: ALT 26 U/L (4-34); AST 33 U/L (14-36); African American GFR (CKD) >90 (>60 ml/min/1.73 sqM); Albumin 5.3 g/dL (3.5-5.0); Alkaline Phosphatase 96 U/L (38-126); Anion Gap 13 mmol/L; Blood Urea Nitrogen 13 mg/dL (7-17); C Reactive Protein <0.5 mg/dL (<1.0); Calcium 9.6 mg/dL (8.4-10.2); Carbon Dioxide 28 mmol/L (22-30); Chloride 101 mmol/L (98-107); Glucose 99 mg/dL (74-99); Non-African American GFR(CKD) >90 (>60 ml/min/1.73 sqM); Potassium 4.1 mmol/L (3.5-5.1); Sodium 142 mmol/L (137-145); Total Bilirubin 0.4 mg/dL (0.2-1.3)
--- NOTE | 2022-01-24 16:28 | CT ---
EXAMINATION TYPE: CT thor lumbar spine w con CT DLP: 1795.3 mGycm, Automated exposure control for dose reduction was used. DATE OF EXAM: 01/24/2022 4:12 PM COMPARISON: CT abdomen pelvis 09/13/2020 . CLINICAL INDICATION:Female, 36 years old with history of Midline spinal tenderness, radiation down le gs; , Bilateral leg numbness. TECHNIQUE: Multiple axial images were obtained from the midportion of T11 through the sacroiliac ana nts. Soft tissue and bone windows in coronal and sagittal planes were obtained and reviewed. 3-D ref ormats of the bones were created on a separate workstation and submitted for review. Contrast used:100ml mL of Isovue 300 with IV Contrast, none. Oral contrast used: none. FINDINGS: Alignment: There are 5 lumbar type vertebral bodies within normal alignment. Bone: No evidence of fracture is identified. No mild osteophyte formation throughout the visualized osseous structures. Mild facet joint arthropathy throughout the spine. Discs: Visualized portions of the thoracic spine demonstrate no evidence for significant spinal canal stenos is. The neural foramen are grossly patent. T12-L1: No spinal canal or neural foraminal stenosis is identified. L1-L2: No spinal canal or neural foraminal stenosis is identified. L2-L3: No spinal canal or neural foraminal stenosis is identified. L3-L4: No spinal canal or neural foraminal stenosis is identified. L4-L5: No spinal canal or neural foraminal stenosis is identified. L5-S1: No spinal canal or neural foraminal stenosis is identified. Other: None IMPRESSION: 1. No evidence of fracture of the lumbar spine. 2. No evidence for significant spinal canal or neural foraminal stenosis. 3. Mild multilevel disc degeneration changes.
[2022-01-24] MEDS ORDERED: LIDOCAINE 5% PATCH TOPICAL STA (16:35)
[2022-01-24] MEDS ORDERED: methocarbamoL 750 MG TAB PO PRN (16:35)
[2022-01-24 16:36] LABS: Appearance,Urine Clear (Clear); Bilirubin,Urine Negative (Negative); Blood,Urine Negative (Negative); Color,Urine Light Yellow; Glucose,Urine (UA) Negative (Negative); Ketones,Urine Negative (Negative); Leukocyte Esterase,Urine Negative (Negative); Nitrite,Urine Negative (Negative); Protein,Urine Negative (Negative); Specific Gravity,Urine >1.050 (1.001-1.035); Urobilinogen,Urine <2.0 mg/dL (<2.0)
--- NOTE | 2022-01-24 17:39 | ED ---
General Adult HPI - General Chief complaint: Headache Stated complaint: headache, back & leg pain Time Seen by Provider: 01/24/22 14:59 Source: patient Mode of arrival: ambulatory - History of Present Illness Initial comments: This is a 36-year-old female with a past medical history including MS and lupus presents emergency department for lower back pain and mild numbness in her bilateral lower extremities. The patient stated that she was told to come into the emergency department by her primary care physician office as she stated that she could not get into the office until Saturday because of insurance issues. The patient stated "I insurance his knowledge it and I can't go to the office until Saturday so they told me to come in here today." The patient stated that she has had the symptoms for last 2 and half weeks or more and stated that her primary care physician was aware of it. A x-ray was performed in the office but no further workup was done at this time. The patient did state that she was given a week's worth of medications and at one point stated that she came to the emergency department to get another refill of these medications but then walked back back, and after I questioned her. The patient stated that she had pain in the lower back but denied any trauma to the back. The patient also stated that she had intermittent numbness of the bilateral lower extremities without any urinary or fecal incontinence. The patient was able to a liquid into the emergency department without any acute distress or difficulties. The patient denied any fevers, chills as well as any nausea and vomiting. - Related Data Previous Rx's Medication Instructions Recorded Cephalexin [Keflex] 500 mg PO QID 7 Days #28 cap 03/26/21 Ondansetron Odt [Zofran Odt] 4 mg PO Q8HR PRN #12 tab 07/02/21 Lidocaine 5% Patch [Lidoderm 5% 1 patch TOPICAL DAILY #14 patch 01/24/22 Patch] methocarbamoL [Robaxin-750] 750 mg PO TID 14 Days #52 tab 01/24/22 Allergies Allergy/AdvReac Type Severity Reaction Status Date / Time ketorolac tromethamine Allergy Rash/Hives Verified 01/24/22 13:50 [From Toradol] levofloxacin [From Levaquin] Allergy Rash/Hives Verified 01/24/22 13:50 morphine Allergy Rash/Hives Verified 01/24/22 13:50 Penicillins Allergy Rash/Hives Verified 01/24/22 13:50 propoxyphene napsylate Allergy Rash/Hives Verified 01/24/22 13:50 [From Duncan-N 100] tramadol Allergy Rash/Hives Verified 01/24/22 13:50 aspirin AdvReac Nausea & Verified 01/24/22 13:50 Vomiting tomato AdvReac Unknown Verified 01/24/22 13:50 Review of Systems ROS Statement: Those systems with pertinent positive or pertinent negative responses have been documented in the HPI. ROS Other: All systems not noted in ROS Statement are negative. Past Medical History Past Medical History: CVA/TIA Additional Past Medical History / Comment(s): pyelonephritis, ADD, chronic back pain, MS, factor 12 deficiency, abdominal pain, vomiting, lupus History of Any Multi-Drug Resistant Organisms: ESBL, MRSA Date of last positivie culture/infection: 01/14/15-ESBL E.coli; 10/29/05-MRSA MDRO Source:: ESBL Urine; MRSA armpit Past Surgical History: Section, Cholecystectomy, Hysterectomy, Joint Replacement Additional Past Surgical History / Comment(s): Left knee replacement, Past Anesthesia/Blood Transfusion Reactions: No Reported Reaction Past Psychological History: ADD/ADHD, Anxiety Smoking Status: Never smoker Past Alcohol Use History: None Reported Past Drug Use History: None Reported - Past Family History Father History Unknown: Yes Additional Family Medical History / Comment(s): from aneurysm 5 years after Mother History Unknown: Yes Additional Family Medical History / Comment(s): from aneurysm and cancer at age 58 General Exam Limitations: no limitations General appearance: alert, in no apparent distress Head exam: Present: atraumatic, normocephalic Eye exam: Present: normal appearance, PERRL Pupils: Present: normal accommodation ENT exam: Present: normal exam, normal oropharynx Neck exam: Present: normal inspection, full ROM Respiratory exam: Present: normal lung sounds bilaterally Cardiovascular Exam: Present: regular rate, normal rhythm, normal heart sounds GI/Abdominal exam: Present: soft, normal bowel sounds Rectal exam: Present: deferred Extremities exam: Present: normal inspection, full ROM, pedal edema Back exam: Present: tenderness (Tenderness palpation throughout the mid and lower back including the midline spine as well as the bilateral latissimus dorsi muscles) Neurological exam: Present: alert, oriented X3, CN II-XII intact Psychiatric exam: Present: normal affect, normal mood Skin exam: Present: warm, dry Course Vital Signs 01/24/22 13:47 Temperature 98.0 F Pulse Rate 83 Respiratory 18 Rate Blood Pressure 142/73 O2 Sat by Pulse 98 Oximetry Medical Decision Making - Medical Decision Making The patient was seen and evaluated emergency department. Physical exam, the patient was resting in bed without any acute pain or distress. The patient was able to ambulate and out of the emergency department without any acute distress and denied of any red flag signs for back pain. Vital signs admission were stable and within normal limits. Due to the nature the patient's complaints, in the setting of generalized pain over the back without any documented in-depth evaluation, the patient had laboratory workup obtained as well as a urinalysis and CT of the thoracic and lumbar spine. All laboratory workup was within normal limits. The patient did not have a UTI at this time. CT of the thoracic and lumbar spine were negative for any pathology. A maps report was obtained and did reinforce the fact the patient did have a prescription filled for both clonazepam and oxycodone on January 17 but was supposed to last her for approx imately 10 days. The patient stated that she was out of his medications when I asked. The patient did not receive any narcotic medications in the emergency department. The patient did receive a lidocaine patch as well as Robaxin once the CT scans were negative for any pathology. The patient was given a prescription for Robaxin and lidocaine patches to be taken at home and told to follow-up with her primary care physician on Saturday as she was previously scheduled. The patient was also advised to report back to the emergency department if she had worsening or changing back pain. The patient understood these instructions and harmony portions were answered reportedly. The patient was discharged home in stable condition. - Lab Data Result diagrams: 01/24/22 15:36 01/24/22 15:36 Lab Results 01/24/22 01/24/22 01/24/22 Range/Units 15:36 15:36 15:36 WBC 10.1 (3.8-10.6) k/uL RBC 4.40 (3.80-5.40) m/uL Hgb 13.4 (11.4-16.0) gm/dL Hct 38.8 (34.0-46.0) % MCV 88.0 (80.0-100.0) fL MCH 30.5 (25.0-35.0) pg MCHC 34.6 (31.0-37.0) g/dL RDW 13.2 (11.5-15.5) % Plt Count 277 (150-450) k/uL MPV 8.0 Neutrophils % 73 % Lymphocytes % 19 % Monocytes % 4 % Eosinophils % 2 % Basophils % 0 % Neutrophils # 7.4 (1.3-7.7) k/uL Lymphocytes # 1.9 (1.0-4.8) k/uL Monocytes # 0.4 (0-1.0) k/uL Eosinophils # 0.2 (0-0.7) k/uL Basophils # 0.0 (0-0.2) k/uL Sodium 142 (137-145) mmol/L Potassium 4.1 (3.5-5.1) mmol/L Chloride 101 (98-107) mmol/L Carbon Dioxide 28 (22-30) mmol/L Anion Gap 13 mmol/L BUN 13 (7-17) mg/dL Creatinine 0.79 (0.52-1.04) mg/dL Est GFR (CKD-EPI)AfAm >90 (>60 ml/min/1.73 sqM) Est GFR (CKD-EPI)NonAf >90 (>60 ml/min/1.73 sqM) Glucose 99 (74-99) mg/dL Calcium 9.6 (8.4-10.2) mg/dL Total Bilirubin 0.4 (0.2-1.3) mg/dL AST 33 (14-36) U/L ALT 26 (4-34) U/L Alkaline Phosphatase 96 (38-126) U/L C-Reactive Protein <0.5 (<1.0) mg/dL Total Protein 9.0 H (6.3-8.2) g/dL Albumin 5.3 H (3.5-5.0) g/dL Urine Color Light Yellow Urine Appearance Clear (Clear) Urine pH 6.0 (5.0-8.0) Ur Specific [place] >1.050 H (1.001-1.035) Urine Protein Negative (Negative) Urine Glucose (UA) Negative (Negative) Urine Ketones Negative (Negative) Urine Blood Negative (Negative) Urine Nitrite Negative (Negative) Urine Bilirubin Negative (Negative) Urine Urobilinogen <2.0 (<2.0) mg/dL Ur Leukocyte Esterase Negative (Negative) Disposition Clinical Impression: Back pain Disposition: HOME SELF-CARE Condition: Stable Instructions (If sedation given, give patient instructions): Back Pain (ED) Prescriptions: Lidocaine 5% Patch [Lidoderm 5% Patch] 1 patch TOPICAL DAILY #14 patch methocarbamoL [Robaxin-750] 750 mg PO TID 14 Days #52 tab Is patient prescribed a controlled substance at d/c from ED?: No Referrals: Chevy Overton MD [Primary Care Provider] - 1-2 days Time of Disposition: 17:20
[2022-01-24 18:00] VITALS: BP 143/86; PULSE 93
== END 2022-01-24 18:00 | disposition home or self-care (01) ==
LOC: EC 13:31
DX: M54.50 Low back pain, unspecified (principal); F41.9 Anxiety disorder, unspecified; Z88.6 Allergy status to analgesic agent; Z88.1 Allergy status to other antibiotic agents; Z88.5 Allergy status to narcotic agent; Z88.0 Allergy status to penicillin; Z91.018 Allergy to other foods
CPT/HCPCS: 36415; 80053; 85025; 86140; 81003; 72129; 72132; 99284; Q9967

== ENCOUNTER 2023-02-19 16:57 | Emergency (ER) | payer MEDICARE, OTHER ==
[2023-02-19 17:42] VITALS: RESP 18
--- NOTE | 2023-02-19 17:57 | XR ---
EXAMINATION TYPE: XR knee complete LT DATE OF EXAM: 02/19/2023 5:50 PM CLINICAL INDICATION:Female, 37 years old with history of fall with injury; [facility] COMPARISON: 01/19/2022. TECHNIQUE: XR knee complete LT; examined in Frontal, lateral and oblique projections. FINDINGS: No evidence of any acute osseous pathology, soft tissue swelling, or joint effusion is no lauren. ACL repair changes. There is osteophyte formation of the tibial plateau at the [place] femoral c ondyles. Mild joint space narrowing. IMPRESSION: Findings not significantly changed from 01/20/2020. 1. No acute osseous pathology. 2. ACL repair changes with mild to moderate tricompartmental osteoarthritic changes.
[2023-02-19] MEDS ORDERED: ORPHENADRINE 30 MG/ML 2 ML VIAL IM STA (19:24)
[2023-02-19] MEDS ORDERED: LIDOCAINE 4% PATCH TOPICAL ONE (19:25)
--- NOTE | 2023-02-19 19:27 | ED ---
General Adult HPI - General Chief complaint: Extremity Injury, Lower Stated complaint: left leg swollen Time Seen by Provider: 02/19/23 18:15 Source: patient, RN notes reviewed Mode of arrival: ambulatory Limitations: no limitations - History of Present Illness Initial comments: 37 shows female presents to the emergency department with chief complaint of left knee pain. Patient states that she took a fall 1-1/2 weeks ago and has had left knee pain since then. She does note that she has had some swelling around her knee. She is able to ambulate. Patient has a history of ACL repair. She states that she feels that her knee is buckling when she walks. She denies fever, chills, chest pain, shortness of breath. She states that she has been taking Tylenol and Motrin for the pain. - Related Data Home Medications Medication Instructions Recorded Confirmed Budesonide/Formoterol Fumarate 2 puff INHALATION RT-BID 11/26/22 11/26/22 [Symbicort 80-4.5 Mcg Inhaler] oxyCODONE-APAP 5-325MG [Percocet 1 tab PO Q8H PRN 11/26/22 11/26/22 5-325 mg] Previous Rx's Medication Instructions Recorded Omeprazole [PriLOSEC] 40 mg PO DAILY #30 cap 11/29/22 Pantoprazole [Protonix] 40 mg PO AC-BID 30 Days #60 tab 11/29/22 Ibuprofen [Motrin] 600 mg PO Q8HR PRN #30 tab 02/19/23 Lidocaine 5% Patch [Lidoderm 5% 1 patch TOPICAL DAILY #30 patch 02/19/23 Patch] Allergies Allergy/AdvReac Type Severity Reaction Status Date / Time ketorolac tromethamine Allergy Rash/Hives Verified 02/19/23 17:36 [From Toradol] levofloxacin [From Levaquin] Allergy Rash/Hives Verified 02/19/23 17:36 morphine Allergy Rash/Hives Verified 02/19/23 17:36 Penicillins Allergy Rash/Hives Verified 02/19/23 17:36 propoxyphene napsylate Allergy Rash/Hives Verified 02/19/23 17:36 [From Darvocet-N 100] tramadol Allergy Rash/Hives Verified 02/19/23 17:36 aspirin AdvReac Nausea & Verified 02/19/23 17:36 Vomiting tomato AdvReac Unknown Verified 02/19/23 17:36 Review of Systems ROS Statement: Those systems with pertinent positive or pertinent negative responses have been documented in the HPI. ROS Other: All systems not noted in ROS Statement are negative. Past Medical History Past Medical History: CVA/TIA Additional Past Medical History / Comment(s): pyelonephritis, ADD, chronic back pain, MS, factor 12 deficiency, abdominal pain, vomiting, lupus History of Any Multi-Drug Resistant Organisms: ESBL, MRSA Date of last positivie culture/infection: 01/14/15-ESBL E.coli; 10/29/05-MRSA MDRO Source:: ESBL Urine; MRSA armpit Past Surgical History: Section, Cholecystectomy, Hysterectomy, Joint Replacement Additional Past Surgical History / Comment(s): Left knee replacement, Past Anesthesia/Blood Transfusion Reactions: No Reported Reaction Past Psychological History: ADD/ADHD, Anxiety Smoking Status: Never smoker Past Alcohol Use History: None Reported Past Drug Use History: None Reported - Past Family History Father History Unknown: Yes Additional Family Medical History / Comment(s): from aneurysm 5 years after Mother History Unknown: Yes Additional Family Medical History / Comment(s): from aneurysm and cancer at age 58 General Exam Limitations: no limitations General appearance: alert, in no apparent distress Head exam: Present: atraumatic, normocephalic, normal inspection Eye exam: Present: normal appearance, PERRL, EOMI. Absent: scleral icterus, conjunctival injection, periorbital swelling ENT exam: Present: normal exam, mucous membranes moist Neck exam: Present: normal inspection. Absent: tenderness, meningismus, lymphadenopathy Respiratory exam: Present: normal lung sounds bilaterally. Absent: respiratory distress, wheezes, rales, rhonchi, stridor Cardiovascular Exam: Present: regular rate, normal rhythm, normal heart sounds. Absent: systolic murmur, diastolic murmur, rubs, gallop, clicks Extremities exam: Present: normal inspection, full ROM, tenderness, normal capillary refill, other (DP and PT pulses 2+, bilateral lower extremities nonedematous, nonerythematous). Absent: calf tenderness Neurological exam: Present: alert, oriented X3 Psychiatric exam: Present: normal affect, normal mood Skin exam: Present: warm, dry, intact, normal color. Absent: rash Course Vital Signs 02/19/23 02/19/23 17:34 19:37 Temperature 98 F 98.6 F Pulse Rate 82 59 L Respiratory 18 18 Rate Blood Pressure 130/82 147/82 O2 Sat by Pulse 99 100 Oximetry Medical Decision Making - Medical Decision Making Was pt. sent in by a medical professional or institution (, LYNDA, MECHANICAL PENCILS ASSEMBLER, urgent care, hospital, or intermediate...) When possible be specific @ -No Did you speak to anyone other than the patient for history (EMS, parent, family, police, friend...)? What history was obtained from this source @ -No Did you review nursing and triage notes (agree or disagree)? Why? @ -I reviewed and agree with nursing and triage notes Were old charts reviewed (outside hosp., previous admission, EMS record, old EKG, old radiological studies, urgent care reports/EKG's, intermediate records)? Report findings @ -No old charts were reviewed Differential Diagnosis (chest pain, altered mental status, abdominal pain women, abdominal pain men, vaginal bleeding, weakness, fever, dyspnea, syncope, headache, dizziness, GI bleed, back pain, seizure, CVA, palpatations, mental health, musculoskeletal)? @ -Differential Musculoskeletal Muscular strain, contusion, ligament sprain, fracture, arthritis, septic arthritis, bursitis, cellulitis, muscle spasm, nerve compression, DVT, arterial occlusion, herpes zoster, electrolyte abnormality, tumor.... This is not meant to be in all inclusive list EKG interpreted by me (3pts min.). @ -None X-rays interpreted by me (1pt min.). @ -Through the left knee obtained shows osteoarthritic changes with no acute fracture CT interpreted by me (1pt min.). @ -None done U/S interpreted by me (1pt. min.). @ -None done What testing was considered but not performed or refused? (CT, X-rays, U/S, labs)? Why? @ -None What meds were considered but not given or refused? Why? @ -None Did you discuss the management of the patient with other professionals (professionals i.e. LYNDA Leyva, MECHANICAL PENCILS ASSEMBLER, lab, RT, psych nurse, social science analyst, crutcher helper, teacher, marketing officer, case assistant)? Give summary @ -No Was smoking cessation discussed for >3mins.? @ -No Was critical care preformed (if so, how long)? @ -No Were there social determinants of health that impacted care today? How? (Homelessness, low income, unemployed, alcoholism, drug addiction, transportation, low edu. Level, literacy, decrease access to med. care, usp, rehab)? @ -No Was there de-escalation of care discussed even if they declined (Discuss DNR or withdrawal of care, Hospice)? DNR status @ -No What co-morbidities impacted this encounter? (DM, HTN, Smoking, COPD, CAD, Cancer, CVA, ARF, Chemo, Hep., AIDS, mental health diagnosis, sleep apnea, morbid obesity)? @ -None Was patient admitted / discharged? Hospital course, mention meds given and route, prescriptions, significant lab abnormalities, going to OR and other pertinent info. @ -Discharged. She presented to the emergency department for evaluation of left knee pain following a fall that occurred one and half weeks ago. X-ray obtained shows no acute fracture. Patient is able to ambulate. Patient was given a lidocaine patch and norflex. Advised not to drive while taking the medication. Prescription sent to patient's pharmacy for lidocaine patches and ibuprofen. Patient was advised to follow-up with her primary care provider and orthopedics if symptoms do not improved. Patient understands agreeable with plan. Patient stable at time of discharge. Case discussed with Dr. Martinez Undiagnosed new problem with uncertain prognosis? @ -No Drug Therapy requiring intensive monitoring for toxicity (Heparin, Nitro, Insulin, Cardizem)? @ -No Were any procedures done? @ -No Diagnosis/symptom? @ -left knee pain Acute, or Chronic, or Acute on Chronic? @ -acute Uncomplicated (without systemic symptoms) or Complicated (systemic symptoms)? @ -uncomplicated Side effects of treatment? @ -[N] xacerbation, Progression, or Severe Exacerbation? @ -[N] oses a threat to life or bodily function? How? (Chest pain, [place], [place], pneumonia, PE, COPD, DKA, ARF, appy, cholecystitis, CVA, Diverticulitis, Homicidal, Suicidal, threat to staff... and all critical care pts) @ -[N] Disposition Clinical Impression: Contusion of knee Disposition: HOME SELF-CARE Condition: Stable Instructions (If sedation given, give patient instructions): Knee Sprain (ED) Additional Instructions: Please follow up with your primary care provider. Return to the emergency department for new or worsening symptoms. Prescriptions: Lidocaine 5% Patch [Lidoderm 5% Patch] 1 patch TOPICAL DAILY #30 patch Ibuprofen [Motrin] 600 mg PO Q8HR PRN #30 tab PRN Reason: Pain Is patient prescribed a controlled substance at d/c from ED?: No Referrals: None,Stated [Primary Care Provider] - 1-2 days Cholo Flanagan DO [Doctor of Osteopathic Medicine] - 1-2 days
[2023-02-19 19:54] VITALS: BP 147/82; PULSE 59; TEMP 98.6
== END 2023-02-19 19:44 | disposition home or self-care (01) ==
LOC: EC 16:57
DX: S80.02XA Contusion of left knee, initial encounter (principal); M17.12 Unilateral primary osteoarthritis, left knee; Z88.0 Allergy status to penicillin; Z88.5 Allergy status to narcotic agent; Z88.6 Allergy status to analgesic agent; Z91.018 Allergy to other foods; Z88.8 Allergy status to other drugs, medicaments and biological substances; Z86.59 Personal history of other mental and behavioral disorders; Z88.1 Allergy status to other antibiotic agents; W19.XXXA Unspecified fall, initial encounter
CPT/HCPCS: 73562; 99283; 96372; J2360